=== PATIENT | male | born 1940 | race Caucasian/White ===

== ENCOUNTER 2017-02-11 16:31 | Outpatient (CLI) | payer MEDICARE ==
--- OUTSIDE RECORDS SUMMARY | 2017-02-11 16:35 | XMS | Clinical Summary ---
:1940 Author Organization [facility] Address [address] [place] [address] Phone Care Team Providers Name Role Phone , Primary Care Provider Unavailable Allergies No Known Allergies Current Medications Prescription Sig. Disp. Refills Start Date End Date Status furosemide (LASIX) 40 MG Take 40 mg by mouth Active tablet 2 (two) times daily. amiodarone (PACERONE) 100 Take 100 mg by Active MG tablet mouth daily. omeprazole (PRILOSEC) 40 Take 40 mg by mouth Active MG capsule daily. potassium chloride SA Take 10 mEq by Active (K-DUR,KLOR-CON) 10 MEQ mouth 2 (two) times tablet daily. glimepiride (AMARYL) 2 MG Take 2 mg by mouth Active tablet every morning before breakfast. atorvastatin (LIPITOR) 40 Take 40 mg by mouth Active MG tablet daily. Active Problems Not on file Social History Tobacco Use Types Packs/Day Years Used Date Never Smoker Alcohol Use Drinks/Week oz/Week Comments No Sex Assigned at Date Recorded Not on file Last Filed Vital Signs Vital Sign Reading Time Taken Blood Pressure 165/57 02/04/2015 3:40 PM CDT Pulse 61 02/04/2015 3:40 PM CDT Temperature 36.6 C (97.8 F) 02/04/2015 3:17 PM CDT Respiratory Rate 17 02/04/2015 3:40 PM CDT Oxygen Saturation 93% 02/04/2015 3:40 PM CDT Inhaled Oxygen Concentration - - Weight 90.7 kg (200 lb) 01/31/2015 3:57 PM CDT Height 177.8 cm (5' 10") 01/31/2015 3:57 PM CDT Body Mass Index 28.7 01/31/2015 3:57 PM CDT Plan of Treatment Not on file Implants Implanted Type Area [employer]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
--- NOTE | 2017-02-11 19:13 | RAD ---
ABDOMEN TWO VIEW ONE VIEW CHEST X-RAY 02/11/17 HISTORY: Abdominal pain since last night. Vomiting. Abdominal aortic aneurysm surgery. COMPARISON: Some radiographs of the chest 09/01/16. FINDINGS: There are numerous distended loops of bowel in the upper abdomen. These appear to be predominantly l arge bowel with dilatation also of a few loops of small bowel. There appears to be some interpositio n of bowel between the left hemidiaphragm and the stomach with partially compressed stomach bubble. Free air cannot be totally excluded, although is felt less likely. Moderate distention of the rectum with stool. Dense vascular calcifications. IMPRESSION: 1. Dilated loops of large and small bowel with abnormal foci of gas on the right lateral hemiab domen. This cannot be definitively described as intraluminal. Recommend CT evaluation for extralumin al gas and for distal large bowel obstruction. 2. Large volume stool in the rectal vault. 3. Clear chest. Phone call was made to the doctor's office at 5:03 p.m. for which it was closed and the answering se naveen answered and was not able to connect me. Code T POS: JOSH
== END 2017-02-11 16:32 | disposition home or self-care (01) ==
LOC: SCSRAD 16:31
PROVIDERS: ATTEND Family Medicine
DX: R10.84 Generalized abdominal pain (principal); K56.699 Other intestinal obstruction unspecified as to partial versus complete obstruction
CPT/HCPCS: 74022

== ENCOUNTER 2017-02-12 09:36 | Outpatient (CLI) | payer MEDICARE ==
[~2017-02-12 09:36] MED LIST: Iopamidol 370 76% 100 ML VIAL ONE
--- NOTE | 2017-02-12 15:43 | CT ---
ABDOMEN AND PELVIC CT SCAN WITH IV CONTRAST: HISTORY: A 76-year-old male with a history of constipation, nausea, vomiting, abdominal pain, and concern for colonic obstruction. FINDINGS: Minimal posterior pleural-based parenchymal changes, probably positional. Three-vessel coronary art ben calcific disease. Postoperative changes in the left atrial appendage. Prominent atherosclerotic changes of the aorta with focal dilatation of the lower abdominal aorta up to approximately 3.4 cm. Status post cholecystectomy. No evidence for liver metastasis. Small le ft kidney. Several right renal cysts including a cyst in the posterior lower pole of the right kidn ey with some calcifications along the wall of the cyst. These are stable from prior study of 05/13/16 . The visualized pancreas, spleen, and adrenal glands were unremarkable. No renal calculi or acute obstruction. There is a large constricting annular mass in the sigmoid colon resulting in some proximal colonic dilatation and findings of obstruction. There is some colonic diverticulosis witho ut acute diverticulitis. No evidence of adenopathy. Mild dilatation of both right and left common iliac arteries. Slight nonspecific sclerosis of both femoral heads. IMPRESSION: Large constricting annular mass involving the sigmoid colon highly suspicious for colon cancer with some resultant obstructional changes and dilatation of the proximal colon. Colonic diverticulosis w ithout acute diverticulitis. Stable renal cyst. Atherosclerosis of the aorta with several areas of focal ectasia, stable. No liver metastasis or evidence for lymphadenopathy within the abdomen or p milton. Normal-appearing appendix. Findings were discussed with Dr. Warner Grullon at 12:15 p.m. CODE CR POS: JOSH
== END 2017-02-12 09:37 | disposition home or self-care (01) ==
LOC: CT 09:36
PROVIDERS: ATTEND Radiology Diagnostic Radiology
DX: K59.00 Constipation, unspecified (principal); R10.9 Unspecified abdominal pain; R11.2 Nausea with vomiting, unspecified; K57.30 Diverticulosis of large intestine without perforation or abscess without bleeding; N28.1 Cyst of kidney, acquired; I70.0 Atherosclerosis of aorta; I77.819 Aortic ectasia, unspecified site; K63.89 Other specified diseases of intestine
CPT/HCPCS: 74177

== ENCOUNTER 2017-04-21 10:23 | Inpatient (IN) | payer MEDICARE ==
[2017-04-21 10:58] LABS: #Eosinphils 0.1 thou/uL (0.0-0.7); #Lymphocytes 0.5 thou/uL (1.20-3.40); #Monocytes 0.6 thou/uL (0.11-0.59); #Neutrophils 10.8 thou/uL (1.40-6.50); %Basophils 0.4 % (0.0-1.0); %Eosinophils 0.4 % (0.0-10.0); %Lymphocytes 4.4 % (21.0-51.0); %Monocytes 5.3 % (0.0-10.0); Hematocrit 39.4 % (42.0-52.0); Mean Platelet Volume 7.5 fL (7.4-10.4); Red Blood Cell (RBC) Count 3.88 mill/uL (4.70-6.10); White Blood Cell (WBC) Count 12.1 thou/uL (4.8-10.8)
[2017-04-21 11:21] LABS: Troponin I 0.025 ng/mL (< 0.028)
[2017-04-21 11:24] LABS: ALT (SGPT) 26 U/L (8-55); AST (SGOT) 27 U/L (5-34); Alkaline Phosphatase 181 U/L (40-150); Anion Gap 15 mmol/L (10-20); BUN (Urea Nitrogen) 23 mg/dL (8.4-25.7); Bilirubin, Total 0.8 mg/dL (0.2-1.2); CK (CPK) Less than 9 U/L (30-200); Calc. Creatinine Clearance 0 mL/min (70-130); Calcium 11.7 mg/dL (7.8-10.44); Carbon Dioxide 27 mmol/L (23-31); Chloride 92 mmol/L (98-107); Estimated GFR-MDRD 40; Globulin 5.1 g/dL (2.4-3.5); Protein, Total 8.2 g/dL (5.8-8.1)
[2017-04-21 11:30] LABS: Lactic Acid - Sepsis 3.4 mmol/L (0.5-2.2)
[2017-04-21 11:33] LABS: Digoxin 0.29 ng/mL (0.8-2.0)
[2017-04-21 11:58] LABS: PTT 32.5 SEC (22.9-36.1); Prothrombin Time 13.7 SEC (12.0-14.7)
--- NOTE | 2017-04-21 12:11 | RAD ---
SINGLE VIEW OF CHEST: Date: 04/21/17 COMPARISON: 02/27/17. HISTORY: Atrial fibrillation and shortness of breath. FINDINGS: Single view of chest shows normal sized cardiomediastinal silhouette with atherosclerotic calcificati ons in the aorta. There is no evidence of consolidation, mass, or pleural effusion. Degenerative peraza ges are seen in the spine and shoulders. IMPRESSION: 1. No evidence of acute cardiopulmonary disease. 2. Atherosclerotic disease. POS: [facility]
[2017-04-21] MEDS ORDERED: Ondansetron HCl/PF 4 MG/2 ML Vial IVP PRN (15:56)
[2017-04-21] MEDS ORDERED: Acetaminophen 325 MG TAB PO PRN (15:56)
[2017-04-21] MEDS ORDERED: HYDROcodone/Acetaminophen 5/325 mg Tablet PO PRN ×2 (15:56)
[2017-04-21] MEDS ORDERED: Ondansetron ODT 4 MG TAB SL PRN (15:56)
[2017-04-21] MEDS ORDERED: Dextrose 5% in Water 1,000 ML IV PRN ×2 (15:58→16:56)
[2017-04-21] MEDS ORDERED: Insulin Regular 300 UNITS/3 ML VIAL SC PRN ×2 (15:58→16:56)
[2017-04-21] MEDS ORDERED: Dextrose 50% Abboject 50 ML SYRINGE IVP PRN (15:58)
[2017-04-21] MEDS ORDERED: Diltiazem HCl 125 MG, Admixture Fee 1 EACH in Sodium Chloride 0.9% 100 ML IVPB SCH (16:00)
[2017-04-21] MEDS ORDERED: Dextrose 50% Abboject 50 ML SYRINGE SLOW IVP PRN (16:56)
[2017-04-21 17:34] LABS: Hematocrit 35.4 % (42.0-52.0)
[2017-04-21] MEDS ORDERED: Sodium Chloride 0.9% 1,000 ML IV SCH (17:45)
[2017-04-21 18:00] LABS: Troponin I 0.026 ng/mL (< 0.028)
--- NOTE | 2017-04-21 20:00 | HP ---
DATE OF ADMISSION: 04/21/2017 ADMITTING PHYSICIAN: Kevin Carey M.D. HISTORY OF PRESENT ILLNESS: The patient is a 76-year-old male status post recent colonic resection r esulting in inadvertently ileostomy. He has a history of recurrent atrial fibrillation. 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 He state s he was feeling fairly well prior to this. Evidently, while he was in his department editor's office, he was noted to be in atrial fibrillation with rapid ventricular response. He was sent to the emergenc y room to be admitted by me. While there, his notes he has had decreased appetite since his armand letha and has lost weight. There has been no vomiting. He simply notes he just does not feel like ea ting. No fever has been reported otherwise. No chest pain, no shortness of breath. He really did not realize he was in atrial fibrillation and r apid response otherwise. He has had a history of a chronic wound to his left upper quadrant that is still draining. Wound VAC has been removed and he sent with health care. Otherwise, no other medica l complaints noted. ALLERGIES: He has no known allergies. CURRENT MEDICATIONS: Noted in the body of the chart. PAST MEDICAL HISTORY: Significant for the above noted colonic resection with resulting ileostomy. Carmencita marina also has a history of cholecystectomy, abdominal aortic aneurysm repair, tonsillectomy, left caroti d endarterectomy, multiple ablations. He has also had a Workman procedure done on his heart for atri al fibrillation. Medical history is positive for type 2 diabetes mellitus, hypertension, hyperlipide jaylyn, most recently for recurrent weakness. SOCIAL/PERSONAL HISTORY: He is . He does not smoke nor does he drink alcohol. REVIEW OF SYSTEMS: CONSTITUTIONAL: Positive for recurrent weakness. GASTROINTESTINAL: Positive for some lower abdominal discomfort. GENITOURINARY: Otherwise negative. CARDIOVASCULAR: Positive as above. RESPIRATORY: Otherwise negative at this time. No cough or fever has been noted. PHYSICAL EXAMINATION: VITAL SIGNS: At the time of me seeing him, his pulse was 89 and regular, respirations 16, O2 sat was 97% on 2 liters, blood pressure was 119/52. GENERAL: He is alert, active, does not appear in any distress. HEENT: Normocephalic, atraumatic. Sclerae and conjunctivae clear. Throat clear. NECK: Supple, full range of motion, no masses. LUNGS: Clear to auscultation. HEART: Reveals an irregular regular rhythm without murmur, gallops or rubs. ABDOMEN: Soft. There is some slight left lower quadrant tenderness. Ileostomy is present at the [facility] lower quadrant. There is an open wound to the left upper quadrant with some purulent material dr cox. No evidence of any significant erythema is otherwise noted. EXTREMITIES: Trace edema bilaterally. NEUROLOGICAL: He is able to move all extremities well. Follow commands. LABORATORY AND X-RAY FINDINGS: Initial labs showed a white blood count 12.1, hemoglobin 12.6, hemato crit 39.4. Chemistry: Sodium 129, potassium 4.5, chloride 92, CO2 of 27, BUN 23, creatinine 1.68. Lactic acid is slightly elevated at 3.4. Initial troponin 0.025. TSH is 1.26. Digoxin level 0.29. Chest x-ray shows no evidence of any acute process. IMPRESSION: 1. This is a 76-year-old male who is status post recent colonic resection, is now on atrial fibrilla tion, rapid ventricular response, now controlled with the diltiazem drip. 2. Deconditioning. 3. Generalized weakness due to prolongation of recovery. PLAN: 1. The patient will be admitted to Telemetry. We will consult Cardiology for further recommendation s. 2. The patient has seen Dr. Gregory in the past. We will consult GI for any further recommendations regarding his GI system. 3. Continue current medications, otherwise. Further recommendations will be based on response.
--- NOTE | 2017-04-21 20:03 | PRG ---
DATE OF SERVICE: 04/21/2017 Mr. Casillas is here in the telemetry. He has apparently received some fluid, feeling somewhat bet ter. Heart rate is in the 90-100 range. I suspect the patient is volume depleted. He is also hyponatremic. We will stop Lasix and normal sa line. Increase digoxin dose in the morning. The patient also states that tamsulosin did make him ve ry lightheaded. We will stop the tamsulosin for now.
[2017-04-21] MEDS: Sodium Chloride 0.9% 1,000 ML IV SCH (21:57)
[2017-04-21] MEDS: Ubidecarenone 50 MG CAP PO SCH (21:57)
[2017-04-21] MEDS: Magnesium Oxide 400 MG TAB PO SCH (21:58)
[2017-04-21] MEDS: guaiFENesin ER 600 MG TAB PO SCH (21:58)
[2017-04-21] MEDS: Famotidine 20 MG TAB PO SCH (21:58)
[2017-04-22 00:07] LABS: Hematocrit 32.5 % (42.0-52.0)
[2017-04-22 05:20] LABS: Digoxin 0.35 ng/mL (0.8-2.0)
[2017-04-22 05:29] LABS: Anion Gap 11 mmol/L (10-20); BUN (Urea Nitrogen) 21 mg/dL (8.4-25.7); Calc. Creatinine Clearance 0 mL/min (70-130); Calcium 10.9 mg/dL (7.8-10.44); Carbon Dioxide 29 mmol/L (23-31); Chloride 96 mmol/L (98-107); Estimated GFR-MDRD 55; Iron 33 ug/dL (65-175)
[2017-04-22 05:34] LABS: #Eosinphils 0.1 thou/uL (0.0-0.7); #Lymphocytes 0.6 thou/uL (1.20-3.40); #Monocytes 0.7 thou/uL (0.11-0.59); #Neutrophils 7.7 thou/uL (1.40-6.50); %Basophils 0.1 % (0.0-1.0); %Eosinophils 0.7 % (0.0-10.0); %Lymphocytes 6.9 % (21.0-51.0); %Monocytes 7.6 % (0.0-10.0); Hematocrit 39.2 % (42.0-52.0); Mean Platelet Volume 7.3 fL (7.4-10.4); Red Blood Cell (RBC) Count 3.87 mill/uL (4.70-6.10)
[2017-04-22] MEDS: Sodium Chloride 0.9% 1,000 ML IV SCH ×2 (06:36→23:44)
[2017-04-22] MEDS ORDERED: Furosemide 40 MG TAB PO SCH (07:30)
--- NOTE | 2017-04-22 08:07 | PRG ---
DATE OF SERVICE: 04/22/2017 Mr. Casillas is doing well, he states he feels much better. He ate last night without any difficul ties or problems. PHYSICAL EXAMINATION: VITAL SIGNS: Temperature 97.7, BP 94/52, pulse 72 and regular. LABORATORY: Hemoglobin 12.5, hematocrit 39.2, sodium 132, potassium 3.8, chloride 96, CO2 29, BUN 1. 27. BNP is 322. LUNGS: Clear. HEART: Reveals no murmur. ABDOMEN: Soft. IMPRESSION: The patient is basically improved from his atrial fibrillation with rapid ventricular re sponse with simple IV fluids. I have asked Dr. Gregory to see him anyway today for further considerations regarding any trouble swal lowing. He is wishing to go home today. I told him that would be left up to the Cardiology Departme , I also informed him that I will be out of town tomorrow and Dr. Warner Grullon will be rounding for me.
[2017-04-22] MEDS ORDERED: FLU VACC TS2017-18 (>65YR) 0.5 ML SYRINGE IM ONE (09:00)
[2017-04-22] MEDS ORDERED: Tamsulosin HCl 0.4 MG CAP PO SCH (09:00)
[2017-04-22] MEDS ORDERED: Digoxin 0.125 MG TAB PO SCH (09:00)
[2017-04-22] MEDS: Potassium Chloride 10 MEQ TAB PO SCH ×2 (10:49→18:17)
[2017-04-22] MEDS: Enoxaparin Sodium 40 MG/0.4 ML SYRINGE SC SCH (10:49)
[2017-04-22] MEDS: Fish Oil 1,000 MG CAP PO SCH (10:49)
[2017-04-22] MEDS: Aspirin 81 mg Enteric Coated Tablet PO SCH (10:49)
[2017-04-22] MEDS: guaiFENesin ER 600 MG TAB PO SCH ×2 (10:50→21:10)
[2017-04-22] MEDS: Ascorbic Acid 500 mg Chewable Tablet PO SCH (10:50)
[2017-04-22] MEDS: Famotidine 20 MG TAB PO SCH ×2 (10:50→21:09)
[2017-04-22] MEDS: Zinc Sulfate 220 MG CAP PO SCH (10:59)
[2017-04-22] MEDS: Calcium/Multivitamins W-Iron 1 TAB TAB PO SCH (11:00)
[2017-04-22 12:47] LABS: Hematocrit 33.2 % (42.0-52.0)
[2017-04-22] MEDS ORDERED: ISOVUE-370 76%-LOCM 1 ML ONE (14:05)
[2017-04-22] MEDS ORDERED: Iopamidol 370 76% 50 ML VIAL FS ONE (14:05)
--- NOTE | 2017-04-22 17:06 | PRG ---
DATE OF SERVICE: 04/22/2017 SUBJECTIVE: Mr. Das feels much better today. He received intravenous fluid overnight. He is feeling much better. No chest pain. His heart rate is also down to normal. PHYSICAL EXAMINATION: VITAL SIGNS: Blood pressure 110/54, pulse 80, it is irregular. LUNGS: Clear. CARDIAC: Irregularly irregular. ASSESSMENT: 1. The patient was dehydrated and that is improved. 2. Hyponatremia, also probably related to dehydration and diuretics improving with sodium now up to 132, it was 129 on admit. 3. Renal failure is also improved. Creatinine has gone from 1.68 to 1.27. 4. Nausea is improved. 5. The patient has a BNP 322. He has chronic diastolic heart failure. 6. Iron-deficiency anemia. The patient's ferritin level is normal. PLAN: 1. Hep-Lock IV. 2. Cardizem has been increased. 3. The patient has some drainage from his wound in his abdomen and wishes to see Dr. Butler and cons ulted Dr. Butler. Hopefully, the patient could be released home tomorrow.
[2017-04-22] MEDS ORDERED: Metoclopramide HCl 10 MG/2 ML VIAL IVP SCH (17:15)
[2017-04-22 18:54] LABS: Hematocrit 34.8 % (42.0-52.0)
--- NOTE | 2017-04-22 19:44 | HP ---
HISTORY OF PRESENT ILLNESS: A 76-year-old male patient who has been admitted for dehydration, atrial fibrillation, and RVR. He has been hydrated and Dr. Saba had seen him and believes that he will b e able to go home tomorrow. The patient was suffering anorexia, but no dysphasia. Dr. Kevin Carey admitted him. Dr. Jennifer Saba saw him for his atrial fibrillation. Dr. Gregory is planning on see ing him. The patient has a left upper quadrant abdominal wound, it is draining purulent material, ch anging the dressings 3-4 times a day. I have talked to them in my office regarding ostomy bag to con trol this versus gauze dressing, they wanted to stay with a gauze dressing. [facility] de la o s been seeing him for his open wound and helping with his ileostomy care. We recently discontinued t he wound VAC from his local wound and [facility] they stated they will not see him more th an once a week since doing this. The states that she cannot care for the ileostomy herself and the patient is not able. We will ask home health to see what they can due to increase the frequency of visits with home health. The patient underwent 04/05/2016 laparoscopic cholecystectomy that I performed and then on 02/13/2017 , he had a partially obstructing sigmoid colon mass and underwent laparoscopic mobilization of spleni c flexure and left colectomy and colorectal anastomosis. Postoperatively, he developed a leak and on 02/19/2017, the patient underwent laparoscopy converted to a laparotomy with abdominal washout with 8 liters of fluid, suture closure of the right posterolateral colorectal anastomotic leak in two laye rs; placement of 2 Horace drains on left subcostal, one left gutter and pelvis, other one left subdi aphragmatic area; and FRANCO drain and a diverting ileostomy. The patient in the hospital developed drai nage from the suprapubic wound that was purulent and eventually this closed up and after the Horace drains have been advanced out and removed, developed drainage from this wound. He has had continued drainage since that time. This drainage has not seemed to be slowing down, although he remains afebr ile and the abdomen is soft, benign, and nontender without pain. As stated above, he is afebrile. ALLERGIES: None. TOBACCO: None. ALCOHOL: None. MEDICATIONS: At home, vitamin D3, glimepiride, diltiazem, aspirin, famotidine, Lasix, Flomax, magnes ium. PHYSICAL EXAMINATION: VITAL SIGNS: Temperature 98.1, 69, 20, 103/55. LUNGS: Clear to auscultation. CARDIAC: Irregularly irregular. Good rate control. ABDOMEN: Soft, nontender. Dressing left upper quadrant wound dry, recently changed. Suprapubic mid line wound dressing from wound care, small granulating wound, healing ileostomy right lower quadrant. LABORATORY: White count 9, hemoglobin 12. BUN 20, creatinine 1.27. ASSESSMENT AND PLAN: 1. 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 We will plan CT s can of abdomen and pelvis. P.o. and IV contrast tonight to evaluate the abdomen and see why this is chronically leaking. We will try to obtain this tonight and if there is any intra-abdominal fluid co llection, could consider CT guided drainage during this hospitalization. We will await this study. 2. Chronic draining wound, left upper quadrant. He does not need to be on antibiotics. They prefer change of dressings, not have a stoma for this as they are changing it 2 to 4 times a day. 3. feel still that she is not capable of ileostomy care. We will ask home health to increase t he frequency of home health visits to help him deal with this.
[2017-04-22] MEDS: Ubidecarenone 50 MG CAP PO SCH (21:09)
[2017-04-22] MEDS: Mirtazapine 15 MG TAB PO SCH (21:10)
[2017-04-22] MEDS: Magnesium Oxide 400 MG TAB PO SCH (21:10)
--- NOTE | 2017-04-22 23:00 | CT ---
CT OF THE ABDOMEN AND PELVIS WITH CONTRAST 04/22/17 COMPARISON: 02/19/17. HISTORY: Abdominal pain with chronic draining left upper quadrant wound. TECHNIQUE: Multiple contiguous axial images were obtained in a CT of the abdomen and pelvis with contrast. PO co ntrast was administered. Coronal reformats were performed. FINDINGS: There are stable hypodensities in the right kidney which likely represent cysts. There are calcificat ions associated with a more posterior hypodensity in the right kidney. The patient is status post cho lecystectomy. The liver, left kidney, adrenal glands, spleen, and pancreas are unremarkable. There ar e scattered diverticula in the colon. The small bowel is unremarkable. There is an ostomy in the righ t lower quadrant of the abdomen. There is air beneath the umbilicus. There is also a wound in the lef t abdominal wall. There appears to be a small amount of enteric contrast within this wound. There is a localized collection of free air in the left upper quadrant of the abdomen measuring approximately 8.1 cm in craniocaudal dimension which appears to connect to this fluid collection. Surrounding this collection are scattered areas of fluid and significant stranding changes in the left upper quadrant of the abdomen. The colon is not yet filled with enteric contrast and as it appears that enteric cont rast is seen in the wound, this would may connect with underlying small bowel loops as well. There is mild ectasia of the aorta which contains atherosclerotic calcifications and is tortuous in a ppearance. No abdominal or pelvic lymphadenopathy are seen. Degenerative changes are seen in the spine. There is a small left pleural effusion. IMPRESSION: 1. There is a wound in the left abdominal wall which appears to contain a small amount of enteri c contrast. 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 There is a complex ai r/fluid collection in the left upper quadrant of the abdomen which appears to drain into this wound. 2. Severe diverticulosis. 3. Right renal cyst. 4. Small left pleural effusion. POS: C
[2017-04-22 23:56] LABS: Hematocrit 32.9 % (42.0-52.0)
[2017-04-23] MEDS: Mirtazapine 15 MG TAB PO SCH (01:52)
[2017-04-23] MEDS: Famotidine 20 MG TAB PO SCH ×3 (01:52→20:20)
[2017-04-23] MEDS: guaiFENesin ER 600 MG TAB PO SCH ×3 (01:52→20:20)
[2017-04-23] MEDS: Magnesium Oxide 400 MG TAB PO SCH ×2 (01:52→20:14)
[2017-04-23] MEDS: Ubidecarenone 50 MG CAP PO SCH ×2 (01:53→20:20)
[2017-04-23 05:55] LABS: Hematocrit 33.4 % (42.0-52.0)
--- NOTE | 2017-04-23 06:49 | CON ---
DATE OF CONSULTATION: 04/22/2017 REASON FOR CONSULTATION: Dysphagia/anorexia. HISTORY OF PRESENT ILLNESS: Mr. Casillas is a 76-year-old, known to me from previous evaluations r egarding abdominal pain and obstipation. He has had a chronic stricture in the sigmoid colon related to diverticulosis and basically had been refused surgery from a General Surgery standpoint as he was felt to be high risk and was not having active bleeding or infections and was not having obstruction . Ultimately, however, recently, the patient presented with obstruction. There was an attempt by Dr Cassidy Eldridge to perform a sigmoidoscopy during that admission; he saw on my absence on 02/13, it showed a s tricture 40-50 cm. Ultimately, the patient underwent resection. He had an anastomotic leak wi th peritonitis and required surgery for that. Ultimately, he went to correction for a few weeks and went home. The patient states he has really never got his appetite back. He states that when h e chews food, he does not have appetite to swallow, but he has no problems swallowing bread, ice crea m, milk or juices. He has no dysphagia or pain with swallowing. He has no epigastric pain. PAST MEDICAL AND SURGICAL HISTORY: Colon resection with ileostomy after an anastomotic leak, cholecy stectomy, abdominal aortic aneurysm repair, tonsillectomy, carotid endarterectomy, multiple cardiac a blations, Watchman procedure for AFib, type 2 diabetes, hypertension and hyperlipidemia. MEDICATIONS: Flomax, Klor-Con, magnesium, glimepiride, Lasix, Pepcid, diltiazem, digoxin, Calciferol and aspirin. CURRENT MEDICATIONS: Tylenol; vitamin C; Ecotrin; vitamin D; CoQ10; D5W p.r.n. as directed; digoxin 0.125 mg p.o. Wednesday, Wednesday and Wednesday; diltiazem; Lovenox; Pepcid; glucagon; insulin; mag oxide; potassium chloride and zinc p.r.n. 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 He does note he is still bit depressed since the time his daughter 2 years ago and he has been a pretty long illness over the past couple of months and has not really enjoyed the fall as he typically does. PHYSICAL EXAMINATION: VITAL SIGNS: Temperature is 98. He is afebrile, pulse 69 and blood pressure 103/55. LUNGS: Clear. HEART: Regular rate and rhythm without clicks or murmurs. ABDOMEN: Soft and nontender. There is no rebound. There is no guarding. There is a midline incisi on, it is still healing. LABORATORY DATA: White count 9, hemoglobin 12.5, 10.9, and then 11.1, MCV is 102 and platelet count 253. INR is 1. Comprehensive metabolic profile is normal except for calcium of 10, iron 33, TIBC 19 6, ferritin 322, AST and ALT are 27 and 26 and alkaline phosphatase is 181. ASSESSMENT: I do not know if the patient really has dysphagia. It seems like he has got some anorex ia, he has lost quite a bit of weight since the surgery, some of this may be related to the surgical complications, infection, some of this may be related to depression and poor p.o. intake. He has no thrush or really oropharyngeal issues. Dig toxicity or other medication toxicity could be a concern and also maybe he has been going in and out of atrial fibrillation at home and having a rapid ventric ular response there, that has made him feel weak and not hungry. RECOMMENDATIONS: I would strongly recommend we add supplements to this man's regimen and diet with E nsure Plus. Dr. Butler informed me that he is going to check a CAT scan to make sure he does not hav e something else going on in terms of infection with his surgical site. At this time, I see no role for endoscopy and it may be reasonable to consider antidepressant such as Remeron that may help with appetite as well. We will continue to follow.
[2017-04-23] MEDS ORDERED: Sodium Chloride 0.9% 1,000 ML IV SCH ×2 (10:15→15:45)
[2017-04-23] MEDS: Digoxin 0.125 MG TAB PO SCH (10:19)
[2017-04-23] MEDS: Potassium Chloride 10 MEQ TAB PO SCH ×2 (10:20→16:49)
[2017-04-23] MEDS: Ascorbic Acid 500 mg Chewable Tablet PO SCH (10:28)
[2017-04-23] MEDS: Aspirin 81 mg Enteric Coated Tablet PO SCH (10:29)
[2017-04-23] MEDS: Calcium/Multivitamins W-Iron 1 TAB TAB PO SCH (10:29)
[2017-04-23] MEDS: Enoxaparin Sodium 40 MG/0.4 ML SYRINGE SC SCH (10:29)
[2017-04-23] MEDS: Fish Oil 1,000 MG CAP PO SCH (10:30)
[2017-04-23] MEDS: Zinc Sulfate 220 MG CAP PO SCH (10:30)
--- NOTE | 2017-04-23 10:53 | RAD ---
SINGLE CONTRAST GASTROGRAFIN ENEMA: INDICATION: History of colon leak. COMPARISON: CT of the abdomen and pelvis dated 04/22/17. TECHNIQUE: Half-strength diluted Gastrografin contrast was administered in a retrograde fashion through a rectal tube. Real-time fluoroscopic examination and fluoroscopic spot images were obtained. Total fluoros copic time was 3.4 minutes. Total exposure was 119.78 mGy. FINDINGS: There is active extravasation of Gastrografin contrast from the left aspect of the splenic flexure in to the known large fluid and gas collection in the left upper quadrant of the abdomen consistent with a colonic perforation. This is accentuated on the postvoid upright images. IMPRESSION: Colonic wall perforation within the left aspect of the splenic flexure draining into a fluid collecti on within the left upper quadrant of the abdomen. Finding discussed with Dr. Butler at the time of t he exam. POS: [facility]
[2017-04-23 11:55] LABS: Hematocrit 34.4 % (42.0-52.0)
[2017-04-23] MEDS ORDERED: Sodium Bicarbonate 2.4 MEQ/5 ML ONE (13:04)
[2017-04-23] MEDS ORDERED: Midazolam HCl 2 mg/2 ml Vial ONE (13:05)
[2017-04-23] MEDS ORDERED: Fentanyl 100 MCG/2 ML VIAL ONE (13:05)
--- NOTE | 2017-04-23 14:18 | PRG ---
DATE OF SERVICE: 04/23/2017 HISTORY OF PRESENT ILLNESS: Mr. Casillas had a CT scan of abdomen and pelvis last night. He has a collection intraabdominal beneath the abdominal wall, left upper quadrant adjacent to the colon and small bowel. 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 It could be from the colon. He has had purulent drainage from old drain site left uppe r quadrant since his laparoscopic colon resection and he suffered a colorectal anastomotic leak requi ring drain and ileostomy diversion. He has had persistent drainage out of his left upper quadrant wo und. A CAT scan was obtained to further evaluate that although his white blood cell count is normal. He is afebrile and tolerating his diet. He was admitted this hospitalization because of dehydratio n resulting in atrial fibrillation with rapid ventricular response which has been controlled after hy dration. He has been seen by Cardiology. His dehydration is probably related to his ileostomy statu s. Hope would be to reverse his ileostomy in the future to prevent such episodes. 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 This is diverted but has a significant collection. The patient's abdomen is soft and essentially nontender. I had a discussion with the patient and wif e and explained the situation. I explained that I would recommend CT guided percutaneous drainage to help provide better drainage and resolution of this fistula without addressing it operatively which would make reverse of ileostomy much less of an operation and less risky. They are agreeable. I hav e asked Radiology to perform a CT guided drainage of the left upper quadrant intraabdominal fluid col lection from the colocutaneous fistula and hopefully this will help resolve the chronic drainage from his left lateral subcostal wound. The patient and his are agreeable. The patient's states that she just cannot physically change his ileostomy bag. [facility] had stopped making such frequent visits to the home after we discontinue the wound VAC for the lower wound which is healing. The reports a retained sponge that was eventually removed, but pr esent for about 8-10 days. This occurred as an outpatient, unrelated to hospitalization. Overall, t he lower abdominal wound is doing well and she should only have to change the dressings every 2-3 day s. He will have a drain that will need to be irrigated 2-3 times a day and she will need to be instr ucted on how to do this. The patient's stated if she has to would consider employing a home aleksnadra se that she would pay for to help her with the ostomy changes. I will ask director of casework services to discuss wit h her services available. I expect the patient to be hospitalized for another 2 to 3 days after this procedure and hopefully will go home over the weekend or early next week.
--- NOTE | 2017-04-23 15:42 | CT ---
CT GUIDED LEFT UPPER QUADRANT PERICOLONIC FLUID COLLECTION AND PERCUTANEOUS DRAINAGE: Date: 04/23/17 INDICATION: Contained perforation from the splenic flexure of the colon with accumulated fluid and gas in the lef t upper quadrant, underlying the left hemidiaphragm, and overlying the spleen seen on recent CT dated 04/22/17. This was also demonstrated on Gastrografin enema performed 04/23/17. TECHNIQUE: Informed consent was obtained. Preprocedural CT images were obtained for guidance purposes only. Site overlying the left upper quadrant of the abdomen was marked. Site was prepped and draped in the usua l sterile fashion. Patient underwent IV analgesia with 50 mcg IV Fentanyl. The overlying skin and sub cutaneous tissues and muscle were anesthetized utilizing 1% lidocaine. Under CT for fluoroscopic letty dance, a 5 Sammarinese Noovo catheter was guided down into the collection. .035 Amplatz wire was fed into t he collection. Following this, an 8 Sammarinese dilator was introduced through the abdominal wall. Then, a n 8 S[place] All-Purpose drain was guided down into the fluid collection via the guidewire. The guidewi re was removed. There was removal of 5 mL of pus for laboratory evaluation. There was minimal return of fluid through the catheter after this 5 mL of purulent fluid removal. Mainly gas was removed from the catheter after multiple aspiration attempts. A post drainage CT was performed to confirm position ing of the catheter within the collection. This demonstrated the catheter to be within the fluid pablito ection in question. Contrast in the patient's Gastrografin enema is present within the collection, as well as extending out of the patient's left upper quadrant cutaneous fistula. FINDINGS: There are small bilateral pleural effusions. There is bibasilar atelectasis. There is a contained per foration extending off from the splenic flexure. There are bilateral nephrolithiasis. There are posts urgical changes of prior cholecystectomy. IMPRESSION: Successful percutaneous drainage catheter placement in the contained perforation seen within the left upper quadrant of the abdomen. Findings discussed with Dr. Butler at 1400 hours on 04/23/17. CODE CR. POS: [facility]
--- NOTE | 2017-04-23 16:06 | PRG ---
DATE OF SERVICE: 04/23/2017 SUBJECTIVE: Mr. Casillas is doing okay. He came back from the CT guided drainage placement. He i s not having chest pain or pressure. Overall he is feeling relatively well. PHYSICAL EXAMINATION: VITAL SIGNS: His blood pressure is 134/58 and pulse 98 irregular. LUNGS: Clear. CARDIAC: Irregularly irregular. ABDOMEN: Soft and nontender. EXTREMITIES: There is no edema. ASSESSMENT: 1. Dehydration, resolved. 2. Hyponatremia, improved. Sodium was 132 yesterday. 3. Fluid status post drainage as outlined above. 4. Atrial fibrillation, rate is now controlled. PLAN: 1. Continue diltiazem 180 mg a day. 2. No diuretics for now. He was given some intravenous fluid. 3. Okay to me move off telemetry. He is stable from a cardiac standpoint. When he goes home, consi ryne furosemide 20 mg every other day.
[2017-04-23] MEDS ORDERED: MD-Gastroview 120 ML BOT ONE (17:35)
[2017-04-23 19:26] LABS: Hematocrit 33.3 % (42.0-52.0)
[2017-04-23] MEDS: Acetaminophen 325 MG TAB PO PRN (20:15)
--- NOTE | 2017-04-23 23:58 | PRG ---
DATE OF SERVICE: 04/23/2017 SUBJECTIVE: Mr. Casillas does not feel like he already had a drain placed in today to left lower q uadrant fluid collection. It appears to be an abscess by description from Radiology. The patient do es not have much of an appetite. He complains of getting his blood checked every 6 hours, wonders if that has to continue. OBJECTIVE: VITAL SIGNS: Temperature is 99, pulse 79, blood pressure 114/58. LUNGS: Clear. ABDOMEN: Nontender. He has got a drain on the left upper quadrant. EXTREMITIES: No clubbing, cyanosis, or edema. LABORATORY DATA: Hemoglobin has been stable between 10 and 11 for 2 days now. White count was 9 yes terday, hemoglobin was 12 yesterday, platelet count was 252 yesterday. ASSESSMENT: Anorexia and weight loss, likely related to ongoing abdominal abscess, probably secondar y complaints of depression. He has been hospitalized pretty continuously since February. RECOMMENDATIONS: We will defer treatment of abscess to General Surgery. At this time, we would go a head and stop the serial H&H's that have been stable. There are no signs of bleeding and I am going to stop the Remeron as it seems a pretty good reason for his weight loss and anorexia. We will encou rage him to drink Ensure or Boost 3 times a day. We will follow from a distance.
--- NOTE | 2017-04-24 | PRG ---
DATE OF SERVICE: 04/23/2017 HISTORY OF PRESENT ILLNESS: The patient states he is fatigued, cold with IV fluids running through his arm and reports some leaking from the colostomy site , is eager to get a CT-guided drainage of pocket of fluid in abdomen gone. He reports depression and decreased appetite. No longer having chest pain, flutters or palpitations on increased dose of diltiazem and compliant with digoxin while in hospital. He does complain of dry mouth and he has been required to take sips of water behind breads and meats. No further plans from GI reported for intervention during this hospitalization. PHYSICAL EXAMINATION: VITAL SIGNS: This a.m., temperature of 98.0, heart rate of 111, respiratory rate of 18, oxygen saturation 92% on room air, blood pressure of 108/57, heart rate ranging from 89-111 last heart rate at 1600 hours, today is 79. GENERAL: The patient is alert, oriented, no acute distress. HEENT: Normocephalic, atraumatic. Extraocular movements are intact. Oral mucosa is dry. NECK: Supple, nontender. HEART: Regular rate and rhythm at time of exam. No murmurs auscultated. LUNGS: Clear to auscultation bilaterally. ABDOMEN: Colostomy in place. Small leakage through right flank. Abdomen is mildly tender without rebound or guarding, currently. Additional fistula site to left side. EXTREMITIES: Lower extremities without cyanosis or edema. NEUROLOGIC: The patient is alert and oriented x3. Mood is depressed. Thought process is normal. Speech is normal. LABORATORY DATA: Review of laboratory work, hemoglobin stable on last check 11.2. ASSESSMENT AND PLAN: 1. Atrial fibrillation with rapid ventricular response, controlled on increased medication. 2. Anemia with iron deficiency. Hemoglobin and hematocrit is stable, Gastroenterology, no acute intervention currently, recommending increase fluid behind dry mouth as well as Remeron for depressed mood and increased appetite stimulation. 3. The left upper quadrant pericolonic retroperitoneal abscess, drained by CT- guided process, removal of 5 mL of purulent material sent to lab for evaluation with additional 5 mL of purulent material are wasted, drain in place. Dr. Butler is following postsurgical complications of colectomy following diverticular disease. Once he is stable from a surgical standpoint, Cardiology has stated he will likely be stable from a heart standpoint for discharge home.. We will follow along with Surgery while inpatient. ANJEL
[2017-04-24] MEDS: Acetaminophen 325 MG TAB PO PRN ×3 (05:03→20:07)
[2017-04-24 05:26] LABS: #Eosinphils 0.1 thou/uL (0.0-0.7); #Lymphocytes 0.6 thou/uL (1.20-3.40); #Monocytes 0.7 thou/uL (0.11-0.59); #Neutrophils 6.9 thou/uL (1.40-6.50); %Basophils 0.4 % (0.0-1.0); %Eosinophils 1.1 % (0.0-10.0); %Lymphocytes 7.2 % (21.0-51.0); %Monocytes 7.9 % (0.0-10.0); Hematocrit 34.6 % (42.0-52.0); Red Blood Cell (RBC) Count 3.41 mill/uL (4.70-6.10); White Blood Cell (WBC) Count 8.3 thou/uL (4.8-10.8)
[2017-04-24 06:04] LABS: Anion Gap 11 mmol/L (10-20); BUN (Urea Nitrogen) 13 mg/dL (8.4-25.7); Calc. Creatinine Clearance 55 mL/min (70-130); Calcium 11.4 mg/dL (7.8-10.44); Carbon Dioxide 27 mmol/L (23-31); Chloride 101 mmol/L (98-107); Estimated GFR-MDRD 65
[2017-04-24] MEDS: Potassium Chloride 10 MEQ TAB PO SCH ×2 (09:24→17:12)
[2017-04-24] MEDS: Aspirin 81 mg Enteric Coated Tablet PO SCH (09:24)
[2017-04-24] MEDS: Ascorbic Acid 500 mg Chewable Tablet PO SCH (09:26)
[2017-04-24] MEDS: Famotidine 20 MG TAB PO SCH ×2 (09:28→20:11)
[2017-04-24] MEDS: Calcium/Multivitamins W-Iron 1 TAB TAB PO SCH (09:28)
[2017-04-24] MEDS: Enoxaparin Sodium 40 MG/0.4 ML SYRINGE SC SCH (09:28)
[2017-04-24] MEDS: Fish Oil 1,000 MG CAP PO SCH (09:29)
[2017-04-24] MEDS: guaiFENesin ER 600 MG TAB PO SCH ×2 (09:29→20:11)
[2017-04-24] MEDS: Zinc Sulfate 220 MG CAP PO SCH (09:29)
--- NOTE | 2017-04-24 10:35 | PRG ---
DATE OF SERVICE: 04/24/2017 SUBJECTIVE: The patient is sitting up in bed comfortably. Reports mild tenderness surrounding the s urgical incision. Denies redness or drainage. PHYSICAL EXAMINATION: VITAL SIGNS: Temperature 98.3, pulse 95, respirations 18, oxygen saturation 95% on room air, blood p ressure 111/73. GENERAL: Alert and oriented x3 with no acute distress. HEENT: Normocephalic. Pupils equally round and reactive to light. Extraocular muscles intact. Stan st mucous membranes. HEART: Regular rate and rhythm, no murmurs. LUNGS: Clear to auscultation bilaterally, no wheezes. ABDOMEN: Colostomy in place, drain also in place. EXTREMITIES: No cyanosis, clubbing or edema. LABORATORY DATA: White blood cell count 8.3, hemoglobin 11.2, hematocrit 34.6, MCV 101.0. Sodium 135, potassium 4.1, chloride 101, carbon dioxide 27, BUN 13, creatinine 1.09, glucose 105, ca lcium 11.4. Abdominal aspirate culture reveals predominant E. coli on preliminary culture. There is also moderat e gram positive cocci in pairs and chains and clusters. ASSESSMENT AND PLAN: 1. Atrial fibrillation with rapid heart rate is currently normal with controller medication. 2. Retroperitoneal abscess, status post CT guided drainage. Plan per Dr. Butler. 3. Culture positive for multiple organisms. We will discuss with Dr. Butler regarding antibiotic co verage. 4. Anemia with iron deficiency. Lab stable, actually improved from yesterday. DISPOSITION: The is concerned about home care with the surgical wounds and drain. She would li ke to discuss further with case management regarding home health coming more often.
--- NOTE | 2017-04-24 14:59 | PRG ---
DATE OF SERVICE: 04/24/2017 SUBJECTIVE: Mr. Casillas was up all last night. He is doing pretty well. Little bit of discomfor t at the site of his drain in his left upper quadrant. He did drink some oral supplements and had so me fruit this morning. He says appetite is little bit better. OBJECTIVE: VITAL SIGNS: He has been afebrile since admission. Temperature is 98, pulse 95 and blood pressure 1 13/73. ABDOMEN: Soft and nontender. GENERAL: He is alert and oriented to person, place and time. LABORATORY STUDIES: White count 8.3, hemoglobin 11.2 and platelet count 272. Sodium 135, potassium 4.1, BUN and creatinine 30 and 1.03, calcium 11.4. Iron 33, TIBC 196, ferritin 322. Micro culture o f abdominal aspirate positive for E. coli. ASSESSMENT AND PLAN: 1. Atrial fibrillation, rapid ventricular response increased. 2. Dehydration on admission, probably related to poor p.o. intake. Diuretics have been held. He is eating a little bit better. 3. Anorexia. Suspect this is probably more related to some intra-abdominal fluid collection. He se ems to be improving since drainage. 4. Anemia of chronic disease, no bleeding. 5. Left upper quadrant fluid collection drained. Talked with Dr. Butler, he felt this was more of a n enterocutaneous fistula probably initially to the midline incision, but since that closed, it redir ected to the previous FRANCO site. Purulent material was sent and Escherichia coli were positive. Prese ntly without fever or leukocytosis. We will defer to Dr. Butler whether or not this is going to be treated. With the significant weight loss after surgery, it may be that he is just addressing inflam matory response and may benefit from therapy. He has been placed on antibiotics and probiotic to pre vent C. diff would be reasonable. 6. I did stop his Remeron after drainage, it seems his appetite improved. We can always consider re starting this. I would recommend him to eat supplements, try to eat vigorously and to get up and sta rt ambulating. I talked with Dr. Canseco, he is running for his primary physician today and going to [facility] physical therapy.
[2017-04-24] MEDS ORDERED: Ondansetron HCl/PF 4 MG/2 ML Vial SLOW IVP PRN (15:55)
--- NOTE | 2017-04-24 18:06 | PRG ---
DATE OF SERVICE: 04/24/2017 SUBJECTIVE: Jose Casillas is doing well today. OBJECTIVE: VITAL SIGNS: He is afebrile at 98.5 degrees, heart rate 70, respiratory rate 18, 104/58. LUNGS: Clear to auscultation. CARDIAC: Regular rate and rhythm without murmur or gallop. ABDOMEN: Soft. He does not have good appetite and is eating one-third to half of his meal most. CT guided drainage of the intra-abdominal collection yesterday. Cultures revealed E. coli mixed ente carl isa. 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 The patient has not b een out of bed since being in the hospital. He needs to be at home. He was in the bed and ambulatin g, and we have consulted therapy to see him, but they have not worked with him out of bed. The patie nt needs to be out of bed three times a day for all meals and up in a chair at night. He should be a mbulating. Yesterday on telemetry, Wednesday, I asked case managers to work with him about his home heal th apparently nothing happened yesterday, and he was transferred to surgery floor in the evening to [facility] for the evening family preservation caseworker on the surgery to do anything about his transfer. is not comfor table taking care of his ileostomy. We will make arrangements for outpatient care and anticipate dis charge home early in the week, Wednesday or Wednesday.
--- NOTE | 2017-04-24 19:58 | CON ---
DATE OF CONSULTATION: 04/24/2017 HISTORY OF PRESENT ILLNESS: Jose Casillas is a 76-year-old gentleman who apparently was admitted to the hospital with chest pain, presumed pneumonia and pleural effusion. I was asked to consult the patient. His states that he had dialysis yesterday, did well. Then, he had some leg pain and was given some hydrocodone and apparently became encephalopathic, apparentl y had fever, subsequently brought into the hospital via ambulance. The patient did not recollect the events of what happened. His x-ray showed left-sided chronic perfusion, CAT scan confirmed the above findings. Cardiology was consulted for left-sided pleural effusion. He was sent to Day Stay for outpatient thoracentesis. T he fluid has been present for over 6 months post-bypass. PAST MEDICAL HISTORY: Pertinent for, 1. Diabetes. 2. Atrial fibrillation. 3. Peripheral vascular disease. 4. Renal failure. 5. Gastric ulcer disease. 6. Osteoarthritis. 7. Gout. 8. Ejection fraction 45%, aortic stenosis, moderate. PAST SURGICAL HISTORY: Extensive bypass, right leg access, appendicitis, gallbladder, pacemaker, car otid, knee surgery. ALLERGIES: None. TOBACCO: None. REVIEW OF SYSTEMS: Otherwise unobtainable. Still encephalopathic and arousable. PHYSICAL EXAMINATION: VITAL SIGNS: Temperature is 98, sats 95% on 2 liters, blood pressure 130/63, pulse 77. CHEST: Decreased breath sounds, left one-third, right lung unremarkable. CARDIAC: Normal S1, S2. No gallops. ABDOMEN: Soft. No masses. LABORATORY DATA: His lab data yesterday showed his white count 11.4, hemoglobin and hematocrit are 1 2 and 37 and platelet count is 164. Baseline creatinine 3.6, BUN 24, INR 1.5. Elevated AST 178, BNP is 982. IMPRESSION: 1. Chronic left pleural effusion. Thoracentesis unsuccessful. 2. Renal failure. 3. Severe deconditioning. 4. Febrile illness. 5. Repeat x-ray post-dialysis to see if has any layering. If he has significant layering, consider thoracentesis at that time. Will follow.
[2017-04-24] MEDS: Amoxicillin/Potassium Clav 500 MG TAB PO SCH (20:07)
[2017-04-24] MEDS: Magnesium Oxide 400 MG TAB PO SCH (20:08)
--- NOTE | 2017-04-24 20:11 | PRG ---
DATE OF SERVICE: 04/24/2017 SUBJECTIVE: Mr. Casillas is doing well today. OBJECTIVE: VITAL SIGNS: 98.5 degrees, 70, 104/58. LUNGS: Clear to auscultation. CARDIAC: Regular rate and rhythm without murmur or gallop. ABDOMEN: Soft, nontender. The drain placed by CAT scan is not draining much at all. EXTREMITIES: The fistula wound in his left upper quadrant continues to drain, although has not been changed since last night. Drainage seems to have decreased. LABORATORY: White count 8, hemoglobin 11.2. Sodium 135. Renal function normal. ASSESSMENT AND PLAN: 1. Colocutaneous fistula. Would add Augmentin for a short 7-day course, although I am not sure that this will help. He remains afebrile with normal white count. Would hope his colocutaneous fistula would heal with time as the fecal stream is diverted with his ileostomy. 2. Deconditioning. The patient has not been out of bed since he has been in the hospital. The baljeet ent needs to be out of bed four times a day, be up in a chair for meals, he needs to ambulate. We wi ll ask that that be initiated. Discharge planning for early next week with home health visits to [facility] with drain ileostomy. Add Augmentin.
[2017-04-24] MEDS: Ubidecarenone 50 MG CAP PO SCH (20:12)
[2017-04-25] MEDS: Acetaminophen 325 MG TAB PO PRN ×2 (06:27→17:31)
[2017-04-25] MEDS: Potassium Chloride 10 MEQ TAB PO SCH ×2 (09:04→17:31)
[2017-04-25] MEDS: Aspirin 81 mg Enteric Coated Tablet PO SCH (09:04)
[2017-04-25] MEDS: Amoxicillin/Potassium Clav 500 MG TAB PO SCH ×2 (09:04→20:15)
[2017-04-25] MEDS: Calcium/Multivitamins W-Iron 1 TAB TAB PO SCH (10:03)
[2017-04-25] MEDS: Ascorbic Acid 500 mg Chewable Tablet PO SCH (10:03)
[2017-04-25] MEDS: Famotidine 20 MG TAB PO SCH ×2 (10:03→20:25)
[2017-04-25] MEDS: Enoxaparin Sodium 40 MG/0.4 ML SYRINGE SC SCH (10:03)
[2017-04-25] MEDS: Fish Oil 1,000 MG CAP PO SCH (10:04)
[2017-04-25] MEDS: Zinc Sulfate 220 MG CAP PO SCH (10:04)
[2017-04-25] MEDS: guaiFENesin ER 600 MG TAB PO SCH ×2 (10:04→20:25)
--- NOTE | 2017-04-25 13:40 | PRG ---
DATE OF SERVICE: 04/25/2017 SUBJECTIVE: The patient is sitting up in chair comfortably. He reports mild pain around the surgica l incision. Denies redness or drainage. OBJECTIVE: VITAL SIGNS: Temperature 97.7, pulse 91, respirations 16, oxygen saturation 95% on room air, and blo od pressure 124/80. GENERAL: Alert and oriented x3, in no acute distress. HEENT: Normocephalic. Pupils are equally round, reactive to light. Extraocular muscles intact. Mo ist mucous membranes. HEART: Regular rate and rhythm, no murmurs. LUNGS: Clear to auscultation bilaterally, no wheezes. ABDOMEN: Mildly tender diffusely. EXTREMITIES: No cyanosis, clubbing, or edema. LABORATORY DATA: No new labs. ASSESSMENT AND PLAN: 1. Atrial fibrillation with rapid ventricular response, currently controlled with medication. 2. Retroperitoneal abscess, status post CT guided drainage. The patient is on antibiotics for a pos itive culture. Culture is pansensitive. 3. Iron deficiency anemia, labs stable. DISPOSITION: The patient working with case management to increase visits with home health. I do rec ommend to this to help with the wound care.
--- NOTE | 2017-04-25 14:10 | PRG ---
DATE OF SERVICE: 04/25/2017 SUBJECTIVE: Mr. Casillas has been getting up with physical therapy now and walking and sitting in his chair. He denies any pain or nausea. He states his appetite is a little bit better. OBJECTIVE: VITAL SIGNS: Temperature is 98, pulse 74, blood pressure 125/75. LUNGS: Clear. HEART: Regular rate and rhythm without clicks or murmurs. ABDOMEN: There is a dressing in the left upper quadrant. There is an ostomy in the right lower quad rant. Both looked fine. The family and nurses note that he is having some drainage around the skin, drain is flushed, it tends to come out at the drain connection to the tubing that goes to his bag. LABORATORY STUDIES: None today. CULTURES: E. coli grew out of the fluid that was removed from the abdomen when the drain was placed. He has been started on Augmentin. ASSESSMENT: 1. Colocutaneous fistula, seemingly previous one of the drain sites from one of his surgeries. It i s felt this is colocutaneous fistula, although Escherichia coli did grew out of it. This could be ex pected from a fistula to the bowel; however, radiologist noted the fluid was purulent and he has been started on some Augmentin, which I think is reasonable. 2. Nurse notes he is refusing most of his other medications, which are vitamins. RECOMMENDATIONS: 1. Stay on the Lovenox, Cardizem, Lanoxin and Pepcid. We will start him on a probiotic as he is on some antibiotics now. 2. Plans are pending for discharge to [facility] home health as does not feel that she can take care of the drain and ostomy.
--- NOTE | 2017-04-25 18:41 | PRG ---
DATE OF SERVICE: 04/25/2017 SUBJECTIVE: Jose Casillas is doing well today. He is up in a chair. He is ambulating with a wa lker. He looks much better. He is feeling better. He is tolerating his diet. His abdominal dressi ng in left upper quadrant sinus tract was changed once in 24 hours and had soilage but not as much as previously. The CT-guided drain is not draining at all despite irrigation twice a day with saline. He has been started on Augmentin p.o. for 7 days. OBJECTIVE: VITAL SIGNS: 97.7 degrees, 91, 124/80. Overall, the patient is doing well. LUNGS: Clear to auscultation. CARDIAC: Regular rate and rhythm without murmur or gallop. ABDOMEN: Soft, nontender. Patient has a colocutaneous fistula, but has a fecal diversion through hi s ileostomy and this should heal nonoperatively. Once this heals, he can have his ileostomy reversed in the future. His needs help at home with managing his lower open wound which should be shaw ed every 2-3 days after washing with soap and water. The patient's and patient need help with i leostomy care. We will plan to discuss with the radiologist and check the CT-guided drain placement prior to discharge. Anticipate discharge home in the next 24-48 hours for [facility] and follow up in my office in 2-3 weeks.
[2017-04-25] MEDS: Magnesium Oxide 400 MG TAB PO SCH (20:15)
[2017-04-25] MEDS: Ubidecarenone 50 MG CAP PO SCH (20:25)
--- NOTE | 2017-04-26 07:53 | PRG ---
DATE OF SERVICE: 04/26/2017 SUBJECTIVE: Mr. Casillas is doing well today. He states his appetite is better. PHYSICAL EXAMINATION: VITAL SIGNS: He is afebrile at 98.4, blood pressure 127/81, he is in atrial fibrillation, pulse [address] regular. LUNGS: Clear. HEART: Reveals no murmur. ABDOMEN: He has undergone percutaneous drainage of small abscess through the weekend. IMPRESSION: 1. Atrial fibrillation with rapid ventricular response, now controlled. 2. Intra-abdominal abscess drained now on antibiotics. PLAN: We are waiting further set up of home health care for more extensive home health care. Once t his was accomplished, he may go home.
[2017-04-26] MEDS: Potassium Chloride 10 MEQ TAB PO SCH ×2 (09:00→18:59)
[2017-04-26] MEDS: Digoxin 0.125 MG TAB PO SCH (09:01)
[2017-04-26] MEDS: Aspirin 81 mg Enteric Coated Tablet PO SCH (09:03)
[2017-04-26] MEDS: Ascorbic Acid 500 mg Chewable Tablet PO SCH (09:04)
[2017-04-26] MEDS: Calcium/Multivitamins W-Iron 1 TAB TAB PO SCH (09:05)
[2017-04-26] MEDS: Enoxaparin Sodium 40 MG/0.4 ML SYRINGE SC SCH (09:05)
[2017-04-26] MEDS: Famotidine 20 MG TAB PO SCH ×2 (09:06→20:41)
[2017-04-26] MEDS: Fish Oil 1,000 MG CAP PO SCH (09:07)
[2017-04-26] MEDS: Zinc Sulfate 220 MG CAP PO SCH (09:07)
[2017-04-26] MEDS: guaiFENesin ER 600 MG TAB PO SCH ×2 (09:07→20:41)
[2017-04-26] MEDS: Saccharomyces boulardii 250 MG CAP PO SCH (09:07)
[2017-04-26] MEDS: Acetaminophen 325 MG TAB PO PRN ×2 (09:11→20:35)
[2017-04-26] MEDS: Amoxicillin/Potassium Clav 500 MG TAB PO SCH ×2 (10:59→20:35)
--- NOTE | 2017-04-26 13:26 | PQF ---
CLINICAL DOCUMENTATION IMPROVEMENT CLARIFICATION FORM: ICD-10 Updated PLEASE DO AN ADDENDUM TO THE PROGRESS NOTE WITH ANY DOCUMENTATION UPDATES OR ADDITIONS AND CARRY THROUGH TO DC SUMMARY. THANK YOU. DATE: 04/26/17 ATTN: Dr. Carey Please exercise your independent, professional judgment in responding to the clarification form. Clinical indicators are provided on the bottom of this form for your review Please check appropriate box(s): [ ] Acute Renal Failure (ARF) / Acute Kidney Injury (DELROY) (Please specify associated condition, if applicable) [ ] Other Etiology or underlying conditions related to the diagnosis of ARF/ DELROY: [ ] Acute on Chronic Renal Failure please specify Stage of CKD (see below) [ ] CKD without ARF/DELROY please specify Stage of CKD [ ] Other diagnosis [ ] Unable to determine In addition, please specify: Present on Admission (POA): [ ] Yes [ ] No [ ] Unable to determine National Kidney Foundation Guidelines for CKD Staging Stage I Kidney damage with normal or increased GFR GFR > 90 Stage II Kidney damage with mildly decreased GFR GFR 60-89 Stage III Kidney damage with moderately decreased GFR GFR 30-59 Stage IV Kidney damage with severely decreased GFR GFR 16-29 Stage V Kidney failure GFR <15 ESRD End Stage Renal Disease On dialysis For continuity of documentation, please document condition throughout progress notes and discharge summary. Thank You. CLINICAL INDICATORS - SIGNS / SYMPTOMS / LABS 04/21/17 04/22/17 04/24/17 LAB: CREATININE 1.68 1.27 1.09 ESTIMATED GFR 40 55 65 CARDIOLOGY PN 04/22: RENAL FAILURE IS ALSO IMPROVED. CREATININE HAS GONE FROM 1.68 TO 1.27 PULMONOLOGY PN 04/24: RENAL FAILURE. RISKS: H&P: HE NOTES HE JUST DOES NOT FEEL LIKE EATING. S/P RECENT COLONIC RESECTION. CARDIOLOGY PN 04/22: HYPONATREMIA, ALSO PROBABLY R/T DEHYDRATION & DIURETICS IMPROVING W/ SODIUM NOW UP TO 132, IT WAS 129 ON ADMIT. TREATMENT: JUL 19: SODIUM CHLORIDE NS 0.9% 1,000 MLS @ 100MLS/HR CPOE 04/21, 04/23 BMP AM RUN Thank you, Tabatha (This form is maintained as a part of the permanent medical record) 2015 [employer] All Rights Reserved Tabatha Rhodes RN, BSN [email or web address] Office: [phone] [facility]
--- NOTE | 2017-04-26 19:22 | PRG ---
DATE OF SERVICE: 04/26/2017 Jose Casillas is doing well today. He is afebrile. Exam is unchanged. He is tolerating his t. Output out of his CT-guided drain tube is nothing. We tried irrigating the tube and nothing flus hes through it; it sprays out the side. We will discuss with Radiology, and they will replace this t ube in the morning, after which he could be discharged home. The patient and his decided upon a [facility] agency. We are working out care as an outpatient to help him with his ileost letty, open wound lower abdomen, and colocutaneous fistula. Hopefully, he can be discharged home nicole urias
[2017-04-26] MEDS: Magnesium Oxide 400 MG TAB PO SCH (20:35)
[2017-04-26] MEDS: Ubidecarenone 50 MG CAP PO SCH (20:41)
[2017-04-27] MEDS: Potassium Chloride 10 MEQ TAB PO SCH (08:59)
[2017-04-27] MEDS: Calcium/Multivitamins W-Iron 1 TAB TAB PO SCH (09:02)
[2017-04-27] MEDS: Aspirin 81 mg Enteric Coated Tablet PO SCH (09:02)
[2017-04-27] MEDS: Ascorbic Acid 500 mg Chewable Tablet PO SCH (09:02)
[2017-04-27] MEDS: Enoxaparin Sodium 40 MG/0.4 ML SYRINGE SC SCH (09:03)
[2017-04-27] MEDS: guaiFENesin ER 600 MG TAB PO SCH (09:04)
[2017-04-27] MEDS: Famotidine 20 MG TAB PO SCH (09:04)
[2017-04-27] MEDS: Saccharomyces boulardii 250 MG CAP PO SCH (09:04)
[2017-04-27] MEDS: Fish Oil 1,000 MG CAP PO SCH (09:04)
[2017-04-27] MEDS: Zinc Sulfate 220 MG CAP PO SCH (09:05)
[2017-04-27] MEDS: Amoxicillin/Potassium Clav 500 MG TAB PO SCH (09:07)
[2017-04-27] MEDS: Acetaminophen 325 MG TAB PO PRN (09:54)
--- NOTE | 2017-04-27 10:09 | PRG ---
DATE OF SERVICE: 04/27/2017 SUBJECTIVE: Mr. Casillas is doing fairly well. He is admitted to have CT drainage tube replaced t apryl per Dr. Butler. After that, he can be discharged. Otherwise, no other medical complaints are n oted, although the notes some wound drainage. She is still concerned about his overall conditio n, which I reminded her that he is still doing very well. PHYSICAL EXAMINATION: VITAL SIGNS: Temperature 98.4, blood pressure 105/63. LUNGS: Clear. HEART: Reveals an irregular regular rhythm without murmur, gallops or rubs. LABORATORY DATA: His blood sugars are adequately controlled. Wound cultures did reveal E. coli and Pseudomonas. He is currently on Augmentin. IMPRESSION: 1. Atrial fibrillation with rapid ventricular response, now controlled. 2. Dehydration. 3. CT assess intraabdominal cavity, now under CT guided drainage with tube to be replaced. PLAN: He can be discharged after CT guided biopsy. We will follow up with Dr. Butler and Dr. Saba . He will follow up with me on a p.r.n. basis. He will continue on his home medications.
--- NOTE | 2017-04-27 11:05 | SPC ---
FLUOROSCOPIC GUIDED PERCUTANEOUS CATHETER EXCHANGE: Date: 04/27/17 HISTORY: Abdominal abscess. Leak of indwelling drainage catheter. FINDINGS: After explaining the procedure and answering all questions, the external portion of the left anterior abdominal drain were sterilely prepped. Small amount of contrast and saline were injected through th e drain, revealing a leak at the hub. The drain is ligated and a .035 Bentson wire was used to hold position, exchanging the catheter for a new 8 [place] Locking Loop drain, positioned within the left abdomen. Small amount of contrast was in stilled to confirm position. The catheter was flushed and secured externally. The patient tolerated t he procedure well and was improved in unchanged condition. Fluoro time equals 0.3 minutes. IMPRESSION: Technically successful fluoroscopic exchange left abdominal abscess drainage catheter. POS: [facility]
[2017-04-27] MEDS ORDERED: Iopamidol 300 61% 100 ML VIAL FS ONE (11:56)
[2017-04-27 13:17] VITALS: BP 100/67; TEMP 98.1
[2017-04-27 13:53] VITALS: BMI 22.6
--- NOTE | 2017-04-27 14:28 | PRG ---
DATE OF SERVICE: 04/27/2017 SUBJECTIVE: Mr. Jose Casillas is doing well today. He went today for exchange of his CT-guided drainage catheter, which was not functioning well. He underwent this interventional fluoroscopy succ essfully. The has been instructed on how to flush this. The patient remains afebrile, tolerati ng his diet. His abdominal exam is unchanged. I would recommend he will be discharged home. He has a colocutaneous fistula, splenic flexure and hopefully the percutaneous drainage will help resolve t his nonoperatively. After this, it is demonstrated to be resolved, we can reverse his ileostomy. I believe his hospitalization on this occasion was AFib with RVR with dehydration related to his ileost letty. Contrast enema this hospitalization has revealed that his colorectal anastomosis has healed and there is no longer a leak. Once his colocutaneous fistula from the splenic flexure is resolved, we can reverse his ileostomy hopefully in May. The patient returned to see me in the office and he has an appointment to see me on 05/06/2017 at 08:30. [facility] will assume his outpatie nt home health care. I have discussed with his .
--- NOTE | 2017-05-01 14:33 | EKG ---
Test Reason : Blood Pressure : / mmHG Vent. Rate : 132 BPM Atrial Rate : 127 BPM P-R Int : 000 ms QRS Dur : 092 ms QT Int : 298 ms P-R-T Axes : 000 -25 094 degrees QTc Int : 441 ms Atrial fibrillation with rapid ventricular response Nonspecific ST and T wave abnormality Left axis deviation Abnormal ECG Confirmed by JAYLIN SHERIDAN DO ([id number]), editor farm journal SYDNIE WATSON ([id number]) on 05/01/2017 2:33:08 PM Referred By: ARVIN Confirmed By:JAYLIN SHERIDAN DO
== END 2017-04-27 14:24 | disposition home health service (06) | DRG 308 ==
LOC: ERS 10:23 → 2NO 13:30 → SURG B 15:38
PROVIDERS: ADMIT Family Medicine; ATTEND Family Medicine
PROC: 0J9830Z Drainage of Abdomen Subcutaneous Tissue and Fascia with Drainage Device, Percutaneous Approach (ICD-10-PCS; principal; 2017-04-23)
DX: I48.91 Unspecified atrial fibrillation (principal); G93.40 Encephalopathy, unspecified; K63.2 Fistula of intestine; J90 Pleural effusion, not elsewhere classified; N19 Unspecified kidney failure; I50.32 Chronic diastolic (congestive) heart failure; T81.31XA Disruption of external operation (surgical) wound, not elsewhere classified, initial encounter; R13.10 Dysphagia, unspecified; E87.1 Hypo-osmolality and hyponatremia; K68.11 Postprocedural retroperitoneal abscess; E11.9 Type 2 diabetes mellitus without complications; I10 Essential (primary) hypertension; B96.20 Unspecified Escherichia coli [E. coli] as the cause of diseases classified elsewhere; R63.0 Anorexia; E78.5 Hyperlipidemia, unspecified; D50.9 Iron deficiency anemia, unspecified; E86.0 Dehydration; E86.9 Volume depletion, unspecified; Z93.2 Ileostomy status; Z68.22 Body mass index [BMI] 22.0-22.9, adult; Y83.6 Removal of other organ (partial) (total) as the cause of abnormal reaction of the patient, or of later complication, without mention of misadventure at the time of the procedure; Y92.234 Operating room of hospital as the place of occurrence of the external cause
CPT/HCPCS: 36415; 36416; 49060; 49423; 49424; 71010; 74177; 74270; 77002; 80048; 80053; 80162; 82550; 82553; 82728; 83540; 83550; 83605; 83690; 83880; 84443; 84484; 85014; 85018; 85025; 85610; 85730; 86850; 86900; 86901; 87070; 87077; 87186; 87205; 93005; 94760; 96365; 96366; 96376; C1729; G8978-GP-CK; G8979-GP-CI; G8987-GO-CJ; G8988-GO-CJ; G8989-GO-CJ; J1650; J2250; J2765; J3010; J7050

== ENCOUNTER 2017-05-12 10:48 | Outpatient (CLI) | payer MEDICARE ==
[2017-05-12] MEDS ORDERED: Iopamidol 370 76% 100 ML VIAL ONE ×2 (11:54→16:55)
[2017-05-12] MEDS ORDERED: MD-Gastroview 120 ML BOT ONE (12:00)
--- NOTE | 2017-05-12 13:26 | RAD ---
FLUOROSCOPIC TUBE CHECK EVALUATION: CLINICAL HISTORY: Prior history of diverticulitis with surgical correction and subsequent abscess formation. Indwellin g drainage catheter continues to produce output, with concern for bowel communication. FINDINGS: Real-time fluoroscopic evaluation performed with injection of small aliquots of radiopaque contrast, Gastrografin. Upon injection of contrast through the drainage catheter, there is a tract-like connec tion of contrast from the catheter site, which is located at the lateral left mid abdomen, and an ova l-shaped region of contrast opacification at the left upper quadrant, underlying the left hemidiaphra gm. This demonstrates a similar configuration when comparing to CT images from drainage placement on 04/23/2017. This pooling of contrast does not conform expectedly to bowel, as it demonstrates the a ppearance of a blind-ending pouch. IMPRESSION: Tract-like communication demonstrated between the terminal aspect of the drainage catheter and a blin d-ending contrast opacified pouch at the left upper quadrant, demonstrating similar morphology to CT images from drainage placement on 04/23/2017. No fluoroscopic evidence for direct communication of t he catheter site with bowel content. Findings telephoned to the patient's surgeon, Kevin Butler M.D., at 1155 hours on 05/12/2017. CODE CR POS: [facility]
--- NOTE | 2017-05-12 14:16 | CT ---
CT ABDOMEN AND PELVIS WITH CONTRAST: Technique: Multiple axial tomograms were obtained through the abdomen and pelvis with IV enhancement. Oral contrast was administered. History: Re-assess drainage tube catheter. Status post colon resection. Comparison: CT scan of 04-23-17 which was performed during a CT guided drainage procedure of a contai reynaldo perforation in the left upper quadrant. Also compared to a prior CT of 04-22-17 which demonstrate d the circumscribed fluid and air collection in the left upper quadrant anteriorly. FINDINGS: On today's exam a small left pleural effusion is again noted. This may be minimally larger when connor red to 04-22-17. Liver, spleen, and pancreas unremarkable. Adrenal glands and kidneys are unchanged. Bilateral renal c ystic lesions are again noted, one of which is complex posterior right renal cortex. The drainage catheter entering through the anterior left abdomen is seen. The pigtail catheter is pos itioned within the previously noted fluid collection. This collection has been adequately drained at this site. There is contrast within this collection indicting bowel communication. There is communication with a contrast collection which extends superiorly and laterally over the spl een and under the left hemidiaphragm. There is a collection of fluid and contrast in the subdiaphragm atic region compressing the superior spleen and this is measured in the coronal plane at approximatel y 6.7 cm x 3.4 cm. Small bowel loops are normal caliber. Aorta shows atherosclerotic changes and aneurysmal dilatation. Prostatic hypertrophy again noted. No other interval change noted. IMPRESSION: 1. Today's pigtail catheter is adequately positioned within the collection along the anterior left ab domen and this fluid collection at this site has been adequately drained with minimal residual fluid at this site. However, there is communication of contrast and fluid which extends laterally and super iorly into the left subdiaphragmatic region where there is a collection of fluid and contrast under t he left hemidiaphragm, slightly compressing the superior margin of the spleen. 2. The left pleural effusion is minimally larger. 3. Other changes of the abdomen appear stable. POS: OFF
== END 2017-05-12 10:49 | disposition home or self-care (01) ==
LOC: RAD 10:48
PROVIDERS: ATTEND Specialist
DX: S31.109D Unspecified open wound of abdominal wall, unspecified quadrant without penetration into peritoneal cavity, subsequent encounter (principal); Z90.49 Acquired absence of other specified parts of digestive tract
CPT/HCPCS: 74177; 76000; 82565

== ENCOUNTER 2017-05-27 07:41 | Outpatient (CLI) | payer MEDICARE ==
--- NOTE | 2017-05-27 09:14 | RAD ---
CONTRAST ENEMA SOLID COLUMN: HISTORY: Colon perforation with surgical repair. Followup. FINDINGS: Gastrografin contrast was used for single-column contrast enema study. Extensive diverticula arise f rom the colon. There is no evidence of leak. Postoperative changes of the left upper quadrant are a pparent. Radiopaque drain remains within the left upper quadrant. Right lower quadrant ostomy is pa rtially visualized. IMPRESSION: 1. No evidence of recurrent leak from the splenic flexure of the colon. Percutaneous drain remains in place. 2. Diverticulosis. POS: [facility]
[2017-05-27] MEDS ORDERED: MD-Gastroview 120 ML BOT ONE (16:33)
--- NOTE | 2017-05-27 21:43 | HP ---
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 Dr. Bri echols performed endoscopy on 07/06/2014. 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 Argon beam coagulation was performed. He also had some gastric erosions cailin ated. On 04/05/2016, I performed a laparoscopic cholecystectomy with normal cholangiograms. The pat ient subsequently presented with problems from his colonic stricture on 02/13/2017. Dr. Eldridge perform ed a flexible sigmoidoscopy, could not navigate the scope beyond the stricture. The patient underwen t on 02/15/2017, laparoscopic mobilization of splenic flexure, left colon mobilization, laparoscopic sigmoid resection with colorectal anastomosis, 33 mm EEA, anastomosis checked under water without sophia k. Unfortunately, despite these findings, he had returned to the operating room on 02/19/2017 due to the colonic anastomotic leak and had a central line placed. He had drains placed and a laparotomy f or abdominal washout, proper NG tube placement, suture closure at the right posterolateral colorectal anastomotic leak, placement of 2 Horace drains into the pelvis, left gutter extending to the left l ateral subcostal area, a FRANCO drain noted exiting the right lateral subcostal area, left and right gutt er and pelvis, and a diverting ileostomy. The patient postoperatively had a long recovery. He resum ed gastrointestinal function, but had purulent drainage out of his left subcostal drain site initiall y, then this stopped and the drain was removed. He subsequently developed similar purulent drainage from his suprapubic wound and this was treated with a wound VAC and eventually stopped draining. He then developed purulent drainage from the left lateral subcostal old Horace drain site. He underwen t CT evaluation and a contrast enema revealing suspect leak from the splenic flexure area of the colo n into the left upper quadrant with decompression out the left lateral subcostal [place] drain site. The patient was treated with saline irrigation of a pigtail CT-guided catheter to facilitate closure . This drainage initially seized and he underwent contrast evaluation through this pigtail catheter and there was no longer evident connection to the colon, but a blind sac. Followup CAT scan of the a omen after this study revealed absence of any communication to the colon. Approximately a week lat er, he underwent a contrast enema and the colorectal anastomosis had healed and there was no leak, an d there was no drainage from the splenic flexure area. Today, his CT-guided drain was removed. His left upper quadrant wounds are well healed without evidence of infection and without drainage. Supra pubic midline wound tunnels approximately 4 cm cephalad, but there is no evidence of an infection. The patient has a history of intermittent atrial fibrillation. In the office, he had a heart rate of 130. He will be seeing Dr. Saba prior to surgery for medication assessment. Plan is for ileostom y reversal and possible consideration of drainage of his suprapubic wound, opening the wound to facil itate wound care, and closure. I have discussed with the patient having a TAP block preoperatively a nd ileostomy reversal. I have spoken with Dr. Saba personally and he will evaluate him prior to e surgery. ALLERGIES: None. TOBACCO: None. ALCOHOL: None. MEDICATIONS: Aspirin 81 mg a day, doxazosin 0.125 mg daily, magnesium 400 mg daily, vitamin D daily, furosemide 40 mg a day, potassium ER 10 mEq a day, digoxin 0.125 mg daily. In the past, he was on F jose, Cartia XT (diltiazem), famotidine, and tamsulosin; all of which have been discontinued. PAST MEDICAL HISTORY: Type 2 diabetes mellitus, hypertension, hyperlipidemia, atrial fibrillation, h istory of sleep apnea, colonoscopies and EGDs by Dr. Gregory. PAST SURGICAL HISTORY: Laparoscopic cholecystectomy that I performed in the past; left colon operati on as described above; previous cardioversions by Dr. Saba; evaluation by EP, Dr. Velázquez, for SVT, p erformed an ablation, left atrial pacing. The patient was followed by Dr. Kevin Carey and Dr. Amadou Saba. He has had a Watchman procedure in the past, left carotid endarterectomy, aortic aneurysm repair in 2009. PHYSICAL EXAMINATION: VITAL SIGNS: 158 pounds, 70 inches, 22 BMI. Blood pressure 122/79, heart rate 125, temperature 97.9 degrees. Note, the patient has gained weight, approximately 7 pounds, since I saw him last. HEAD, EYES, EARS, NOSE, AND THROAT: Unremarkable. LUNGS: Clear to auscultation. CARDIAC: Regular rate and rhythm without murmur or gallop. ABDOMEN: Soft. Ileostomy in right lower quadrant, granulating wound in suprapubic lower abdomen, ot herwise incision is well healed without evidence of hernia. The suprapubic incision tracks 4 cm ceph alad. EXTREMITIES: Unremarkable. ASSESSMENT AND PLAN: 1. Undesired ileostomy. Plan reversal in the next few weeks. Risks of infection, bleeding, re-oper ation, leakage were explained. He consents. 2. Atrial fibrillation history. Watchman device in place. 3. Type 2 diabetes mellitus.
== END 2017-05-27 07:42 | disposition home or self-care (01) ==
LOC: RAD 07:41
PROVIDERS: ATTEND Specialist
DX: Z48.815 Encounter for surgical aftercare following surgery on the digestive system (principal); Z90.49 Acquired absence of other specified parts of digestive tract; K57.90 Diverticulosis of intestine, part unspecified, without perforation or abscess without bleeding
CPT/HCPCS: 74270

== ENCOUNTER 2017-06-28 13:15 | Inpatient (IN) | payer MEDICARE ==
[2017-06-28 14:02] VITALS: BMI 24.3
--- NOTE | 2017-06-29 13:03 | HP ---
ADDENDUM to H&P #[id number] dictated 05/27/2017 Jose Casillas reports to the office today. He is feeling much better. He has not had any signif icant drainage from his left subcostal wound, where his drains were removed. His suprapubic lower mi dline open wound is slowly healing with normal saline wet to dry dressings. Home Health is seeing frantz charles twice a week for this. The patient's ileostomy is functioning well. Patient has gained the streng th that he is hoping to have his ileostomy reversed soon. I have told him we can reverse that when h e is ready. He does not need a bowel prep prior. He has seen Dr. Feliciano, who was biopsied 2 skin le sions on his left frontal scalp and right preauricular parietal area that reveals some sort of skin c ancer and is being referred to Dr. Horton. I have told the patient and his that they want to coor dinate this under the same anesthetic as his ileostomy reversal, that can be arranged. Again, I have reminded him of the process described this to him the process of ileostomy reversal. Risk of infect ion, bleeding, reoperation, anastomotic leakage were discussed. Questions answered. We will wait fo r the patient to call to schedule ileostomy reversal and expect him to be hospitalized approximately 2 days postoperatively.
[2017-06-30] MEDS ORDERED: Lidocaine 2% w/Epinephrine 1:200K 20 ML VIAL ONE (06:42)
[2017-06-30] MEDS ORDERED: Bupivacaine 0.25% HCL 30 ML VIAL ONE (06:42)
[2017-06-30] MEDS ORDERED: Fentanyl 100 MCG/2 ML VIAL ONE (06:55)
[2017-06-30] MEDS ORDERED: Ketorolac Tromethamine 30 MG/ML VIAL ONE (07:03)
[2017-06-30] MEDS ORDERED: cefOXitin 2 GM, Syringe 1 ML in Sterile Water 10 ML SLOW IVP SCH (07:15)
[2017-06-30] MEDS ORDERED: Ondansetron HCl/PF 4 MG/2 ML Vial IVP PRN ×3 (07:18→10:27)
[2017-06-30] MEDS ORDERED: Promethazine HCl 25 MG/ML VIAL SLOW IVP PRN (08:56)
[2017-06-30] MEDS ORDERED: Promethazine HCl 25 MG/ML VIAL IM PRN (08:56)
--- NOTE | 2017-06-30 10:05 | OP ---
DATE OF PROCEDURE: 06/30/2017 PREOPERATIVE DIAGNOSES: Undesired ileostomy status post laparoscopic colon resection, anastomotic le ak status post laparotomy, drain placement and then nonoperative treatment and healing closure of spl enic flexure fistula with healing verified by contrast enema and CAT scan. POSTOPERATIVE DIAGNOSES: Undesired ileostomy status post laparoscopic colon resection, anastomotic l eak status post laparotomy, drain placement and then nonoperative treatment and healing closure of sp lenic flexure fistula with healing verified by contrast enema and CAT scan. PROCEDURE: Ileostomy reversal through an incisional elliptical right lower quadrant adhesiolysis. SURGEON: Kevin Butler M.D. ANESTHESIA: General. Local 0.5% Marcaine, 30 mL, mixed with 1% Xylocaine with epinephrine, 30 mL to massiel mixture used volume. ESTIMATED BLOOD LOSS: 10 mL. BLOOD TRANSFUSED: None. DESCRIPTION OF PROCEDURE: The patient taken to the operating room where under general anesthesia, il eostomy closed with 2-0 silk suture. Abdomen clipped of hair, prepared with Betadine and draped in r outine fashion. Elliptical incision was made around the ileostomy right lower quadrant down through the skin and subcutaneous tissue and ileostomy dissected free from the subcutaneous tissue and fascia . Abdominal wall and then adhesiolysis carried out with careful blunt dissection, freeing the ileost letty and then identifying the terminal ileum stump and dissected free, bringing it into the wound. St aple anastomosis then performed after seromuscular sutures of 3-0 silk were placed to align the two s egments of ileum. Opening made in the old staple lines. Stapler inserted, JOHN-75 stapler used and f ired and then common enterostomy closed with a second fire of the JOHN stapler. Anastomosis was palpa zuly and noted to be intact. Good hemostasis was noted. Mesenteric defect closed with 3-0 silk sutur es. Sterile muscular sutures of 3-0 silk used to unload the staple line and ileum dropped back into the abdominal cavity noting good circulation and viability of the two ends. Wound irrigated. Rn Diabetes Educator ior fascia and peritoneum complex approximated with continuous suture of #1 PDS. Skin and subcutaneo us tissue of abdominal wall irrigated and anterior fascia approximated with [id number] suture of 0 PDS pop offs. Skin and subcutaneous tissues irrigated. Skin loosely approximated with interrupte d subdermal sutures of 3-0 Monocryl and Telfa anne-marie applied. Patient had an inferior wound that was healing secondarily and the skin opening was becoming too small to care for the wound. Thus this was opened slightly to facilitate wound care and a normal saline wet to dry dressing gauze applied and t hen local anesthetic mixture filled in the skin and subcutaneous tissue about the operative side and PREVENA incisional VAC placed. The patient tolerated the procedure well and transferred to recovery in stable condition.
[2017-06-30] MEDS ORDERED: Dextrose 50% Abboject 50 ML SYRINGE SLOW IVP PRN ×2 (10:27→10:42)
[2017-06-30] MEDS ORDERED: Ondansetron ODT 4 MG TAB PO PRN (10:27)
[2017-06-30] MEDS ORDERED: hydrALAZINE 20 MG/ML VIAL SLOW IVP PRN (10:27)
[2017-06-30] MEDS ORDERED: Dextrose 5% in Water 1,000 ML IV PRN ×2 (10:27→10:42)
[2017-06-30] MEDS ORDERED: Ketorolac Tromethamine 30 MG/ML VIAL IVP PRN (10:39)
[2017-06-30] MEDS ORDERED: HumaLOG 300 UNITS/3 ML VIAL SC PRN (10:42)
[2017-06-30] MEDS: Acetaminophen 1,000 MG in Premix Bag 1 BAG IVPB SCH ×3 (14:16→19:59)
[2017-06-30] MEDS ORDERED: Metoprolol Tartrate 5 MG/5 ML VIAL ONE (16:16)
[2017-06-30] MEDS ORDERED: Lidocaine 1% PF 5 ML VIAL ONE (16:16)
[2017-06-30] MEDS ORDERED: Propofol 200 MG/20 ML VIAL ONE (16:16)
[2017-06-30] MEDS ORDERED: Glycopyrrolate 0.2 MG/ML 5 ML SYRINGE ONE (16:16)
[2017-06-30] MEDS ORDERED: PHENYLEPHRINE-NS 100 MCG/ML 10 ML SYRINGE ONE (16:16)
[2017-06-30] MEDS ORDERED: Ondansetron HCl/PF 4 MG/2 ML Vial ONE (16:16)
[2017-06-30] MEDS: D5 1/2 NS w/20 mEq KCL 1,000 ML IV SCH ×2 (17:35→20:00)
[2017-06-30] MEDS: Enoxaparin Sodium 40 MG/0.4 ML SYRINGE SC SCH (20:00)
[2017-06-30] MEDS: Famotidine 20 MG TAB PO SCH (20:01)
[2017-06-30] MEDS ORDERED: Famotidine/PF 20 mg/2ml Vial SLOW IVP SCH (21:00)
[2017-07-01] MEDS: Acetaminophen 1,000 MG in Premix Bag 1 BAG IVPB SCH ×2 (01:31→08:35)
[2017-07-01 04:22] LABS: #Eosinphils 0.1 thou/uL (0.0-0.7); #Lymphocytes 0.4 thou/uL (1.20-3.40); #Monocytes 0.5 thou/uL (0.11-0.59); %Basophils 0.6 % (0.0-1.0); %Eosinophils 1.2 % (0.0-10.0); %Lymphocytes 6.6 % (21.0-51.0); %Monocytes 8.4 % (0.0-10.0); %Neutrophils 83.2 % (42.0-75.0); Hemoglobin 10.5 g/dL (14.0-18.0); Mean Corpuscular HGB CONC 32.8 g/dL (32.0-36.0); Mean Corpuscular Hemoglobin 35.2 pg (27.0-31.0); Mean Platelet Volume 7.3 fL (7.4-10.4); Platelet Count 212 thou/uL (130-400); RBC Distribution Width 13.6 % (11.5-14.5); Red Blood Cell (RBC) Count 2.99 mill/uL (4.70-6.10)
[2017-07-01 04:37] LABS: Anion Gap 9 mmol/L (10-20); BUN (Urea Nitrogen) 16 mg/dL (8.4-25.7); Calc. Creatinine Clearance 49 mL/min (70-130); Carbon Dioxide 27 mmol/L (23-31); Chloride 103 mmol/L (98-107); Estimated GFR-MDRD 54; Glucose 139 mg/dL (83-110); Potassium 4.3 mmol/L (3.5-5.1); Sodium 135 mmol/L (136-145)
[2017-07-01] MEDS: Aspirin 81 mg Enteric Coated Tablet PO SCH (08:38)
[2017-07-01] MEDS: Famotidine 20 MG TAB PO SCH ×2 (08:38→20:32)
[2017-07-01] MEDS ORDERED: traMADol HCl 50 MG TAB PO PRN ×2 (08:39)
[2017-07-01] MEDS ORDERED: Ibuprofen 600 MG TAB PO PRN (08:39)
[2017-07-01] MEDS ORDERED: Ibuprofen 200 MG TAB PO PRN (08:53)
[2017-07-01] MEDS: D5 1/2 NS w/20 mEq KCL 1,000 ML IV SCH (13:20)
[2017-07-01] MEDS: Acetaminophen 500 MG TAB PO PRN ×2 (15:36→21:13)
[2017-07-01] MEDS: Enoxaparin Sodium 40 MG/0.4 ML SYRINGE SC SCH (20:32)
--- NOTE | 2017-07-01 21:17 | PRG ---
DATE OF SERVICE: 07/01/2017 SUBJECTIVE: Mr. Casillas was seen both this morning and again this evening. This morning, he is a febrile. This evening he had a fever to over 101 degrees in response that his heart rate was 107 to 120. OBJECTIVE: VITAL SIGNS: His respiratory rate is 20. Patient feels fine. His surgical site in right lower quad rant. The wound VAC remains in place. LUNGS: Clear to auscultation. CARDIAC: Regular rate and rhythm without murmur or gallop. ABDOMEN: Soft, good bowel sounds. No flatus or stool. No nausea or vomiting. LABORATORY: At this point, his white count is 6, hemoglobin 10.5. Basic metabolic profile is normal . Accu-Cheks 68 to 126. Overall, the patient is doing well. With his fever this evening, we would observe him another 24 to 48 hours. We will obtain a repeat CBC in the morning as well as the base m et. We will continue full liquids at this time and reevaluation in the morning. Fevers related to a telectasis. Although, mobility has been good. He has been ambulating in the hallway.
[2017-07-02 04:24] LABS: #Eosinphils 0.1 thou/uL (0.0-0.7); #Lymphocytes 0.5 thou/uL (1.20-3.40); #Monocytes 0.6 thou/uL (0.11-0.59); #Neutrophils 6.1 thou/uL (1.40-6.50); %Basophils 0.3 % (0.0-1.0); %Eosinophils 0.8 % (0.0-10.0); %Lymphocytes 6.5 % (21.0-51.0); %Monocytes 8.4 % (0.0-10.0); Hemoglobin 10.8 g/dL (14.0-18.0); Mean Corpuscular HGB CONC 31.9 g/dL (32.0-36.0); Mean Corpuscular Hemoglobin 34.4 pg (27.0-31.0); Mean Platelet Volume 7.8 fL (7.4-10.4); Platelet Count 239 thou/uL (130-400); RBC Distribution Width 13.4 % (11.5-14.5); Red Blood Cell (RBC) Count 3.15 mill/uL (4.70-6.10); White Blood Cell (WBC) Count 7.3 thou/uL (4.8-10.8)
[2017-07-02 04:34] LABS: Anion Gap 11 mmol/L (10-20); BUN (Urea Nitrogen) 14 mg/dL (8.4-25.7); Calc. Creatinine Clearance 62 mL/min (70-130); Calcium 9.4 mg/dL (7.8-10.44); Carbon Dioxide 26 mmol/L (23-31); Chloride 103 mmol/L (98-107); Estimated GFR-MDRD 70; Glucose 116 mg/dL (83-110); Potassium 3.6 mmol/L (3.5-5.1); Sodium 136 mmol/L (136-145)
[2017-07-02] MEDS ORDERED: Digoxin 0.125 MG TAB PO SCH (09:00)
[2017-07-02] MEDS: Famotidine 20 MG TAB PO SCH ×2 (09:17→19:54)
[2017-07-02] MEDS: Aspirin 81 mg Enteric Coated Tablet PO SCH (09:17)
--- NOTE | 2017-07-02 10:26 | RAD ---
FRONTAL VIEW CHEST TWO VIEW ABDOMEN: CLINICAL HISTORY: Post ileostomy reversal. FINDINGS: There is a linear right perihilar density indicating atelectasis. No obvious consolidation otherwise depicted. No significant effusion. The bowel gas pattern demonstrates scattered air-filled colon w ith interspersed enteric contrast. There is air-filled distended bowel at the upper to mid abdomen. There is vascular calcification. Cardiac silhouette is at upper limits of normal in size. IMPRESSION: 1. Mild prominence of air and contrast-filled bowel. This could be on the basis of an ileus pattern Recommend continued radiographic followup for confirmation. 2. Right perihilar atelectasis. POS: [facility]
[2017-07-02] MEDS: 1/2 NS w/KCL 20 mEq 1,000 ML IV SCH ×2 (11:07→19:54)
[2017-07-02] MEDS: Enoxaparin Sodium 40 MG/0.4 ML SYRINGE SC SCH (19:55)
--- NOTE | 2017-07-02 21:06 | PRG ---
DATE OF SERVICE: 07/02/2017 SUBJECTIVE: Mr. Casillas is doing well today. He did have fever last night. X-rays today reveale d atelectasis, right perihilar. Abdominal x-rays are nonspecific. He had some nausea and vomiting e arlier today and was kept n.p.o., but allowed to eat again once her nausea resolved and he passed montez te a bit of flatus and had a bowel movement. Patient has not had a subsequent fever. LABORATORY DATA: This morning, his white count is 7, hemoglobin 10.8, which is stable. Basic metabo lic profile is normal. Accu-Cheks are normal. At this point, the patient is doing very well. Would advance his liquids at night, saline lock EM, a dminister full liquids tomorrow, and perhaps he would be ready for discharge home tomorrow.
[2017-07-03 04:55] LABS: #Lymphocytes 0.5 thou/uL (1.20-3.40); #Monocytes 0.6 thou/uL (0.11-0.59); #Neutrophils 3.7 thou/uL (1.40-6.50); %Basophils 0.3 % (0.0-1.0); %Eosinophils 0.7 % (0.0-10.0); %Lymphocytes 10.3 % (21.0-51.0); %Monocytes 12.5 % (0.0-10.0); %Neutrophils 76.3 % (42.0-75.0); Hemoglobin 9.7 g/dL (14.0-18.0); Mean Corpuscular HGB CONC 32.3 g/dL (32.0-36.0); Mean Corpuscular Hemoglobin 35.2 pg (27.0-31.0); Mean Platelet Volume 7.7 fL (7.4-10.4); Platelet Count 213 thou/uL (130-400); RBC Distribution Width 13.4 % (11.5-14.5); Red Blood Cell (RBC) Count 2.76 mill/uL (4.70-6.10); White Blood Cell (WBC) Count 4.8 thou/uL (4.8-10.8)
[2017-07-03 04:59] LABS: Anion Gap 12 mmol/L (10-20); BUN (Urea Nitrogen) 16 mg/dL (8.4-25.7); Calc. Creatinine Clearance 64 mL/min (70-130); Carbon Dioxide 24 mmol/L (23-31); Chloride 105 mmol/L (98-107); Estimated GFR-MDRD 73; Glucose 77 mg/dL (83-110); Potassium 3.6 mmol/L (3.5-5.1); Sodium 137 mmol/L (136-145)
[2017-07-03] MEDS: Aspirin 81 mg Enteric Coated Tablet PO SCH (08:35)
[2017-07-03] MEDS: Famotidine 20 MG TAB PO SCH (08:35)
[2017-07-03 11:25] VITALS: BP 109/70; TEMP 98.2
--- NOTE | 2017-07-03 15:06 | PRG ---
DATE OF SERVICE: 07/03/2017 SUBJECTIVE: Mr. Casillas is doing well today. He has not had any nausea or vomiting. He is timur ating his regular diet. OBJECTIVE: VITAL SIGNS: Temperature 98.2 degrees, 105, respiratory rate 20, 109/55. LUNGS: Clear to auscultation. CARDIAC: Regular rate and rhythm without murmur or gallop. ABDOMEN: Soft, nondistended, nontender. His Prevena incisional wound VAC has been removed. Telfa w icks removed. EXTREMITIES: His midline lower suprapubic wound repacked, normal saline, wet to dry dressings. Dry dressing placed on his ileostomy reversal side incision right lower quadrant. He has chiki. LABORATORY DATA: White count this morning is 4.8, hemoglobin 9.7, which is stable. Basic metabolic profile is normal. ASSESSMENT AND PLAN: Doing well after ileostomy reversal. He is discharged home with followup in my office in 5-10 days. Diet and activity as tolerated. His is skilled, has been previously instructed on caring for hi s superior lower midline incision opening, normal saline wet to dry dressings daily after washing wit h soap and water and his ileostomy reversal incision right lower quadrant with chiki can be left op en and if there is no drainage or covered p.r.n. drainage, he can wash it daily with soap and water i n the bath or shower getting it wet and patting it dry and covering and leaving open. No drainage st atus. Diet and activity as tolerated. Follow up in my office in 5 to 10 days.
--- NOTE | 2017-07-03 20:15 | DIS ---
DATE OF ADMISSION: 06/30/2017 DATE OF DISCHARGE: 07/03/2017 DISCHARGE DIAGNOSES: 1. Ileostomy reversal. 2. Atelectasis. 3. Open incision lower wound, present preoperatively. DISCHARGE INSTRUCTIONS: [id number] Tylenol, Motrin, or if needed Ultram for breakthrough pain . is skilled at taking care for his suprapubic lower midline wound incision, washing with soap and water daily, saline wet to dry dressings. Right lower quadrant incision Prevena Telfa anne-marie shana amanda today, gauze dressing applied. He will remove this dressing tomorrow. He can wash it with soap and water in the bath or shower, pat it dry and cover or leave it open depend on the drainage. He is encouraged to be ambulatory. He will resume his home medications of multivitamins, magnesium, aspir in 81 mg a day, fish oil, Coenzyme Q10, Tylenol p.r.n. pain, glimepiride 2 mg p.o. q.a.m. with meals, vitamin D3, furosemide 20 mg a day, digoxin 0.125 mg a day, diltiazem CD 120 mg p.o. daily. Follow up in my office in 5 to 10 days. HISTORY: A 77-year-old male patient, who I saw in March 2016 and laparoscopic cholecystectomy wit h normal cholangiogram. Subsequently on 02/15/2017, I saw him for diverticular stricture, sigmoid co joon with obstruction, high grade partial obstruction required a 2-day bowel prep, colonoscope could n ot be passed beyond it, performed by Dr. Eldridge in coverage for Dr. Gregory. The patient underwent lapa roscopic mobilization of splenic flexure, laparoscopic mobilization of left colon, laparoscopic sigmo id resection with colorectal 33 mm EEA, anastomosis checked under water without leak. On 02/19/2017, he suffered a leak requiring laparoscopy converted to a low midline laparotomy with abdominal washou t, placement of Horace drains, FRANCO drain and diverting ileostomy. The patient postoperatively did no t have any drainage from his drain sites initially in the left upper quadrant, these were removed. H e later developed drainage from the old drain site in his left upper quadrant and evaluation contrast enema and CAT scans revealed what was suspected to be a splenic flexure area leak. He had a CT guid ed pigtail drainage catheter placed for irrigation and care to facilitate closure. This eventually c eased to drain and it was removed. Followup CAT scans and contrast enemas revealed resolution of thi s leak. The colorectal anastomotic leak had healed and it was widely patent. The patient was admitt ed on this occasion for ileostomy reversal, which he went through the old right lower quadrant incisi on. Postoperatively, he did well. He did have a fever on the second day postoperatively and it was felt to be atelectasis despite his good mobility efforts. Chest x-ray revealed atelectasis, right pe rihilar. Fevers resolved and did not return. His white count remained normal. He convalesced to re sume bowel function and tolerated his diabetic diet and is being discharged home at this time to resu me his home medications and follow up in my office in 5 to 10 days.
== END 2017-07-03 15:15 | disposition home health service (06) | DRG 330 ==
LOC: SURG A 06-30 05:56
PROVIDERS: ADMIT Specialist; ATTEND Specialist
PROC: 0DBB0ZZ Excision of Ileum, Open Approach (ICD-10-PCS; principal; 2017-06-30)
DX: Z43.2 Encounter for attention to ileostomy (principal); J98.11 Atelectasis; E11.9 Type 2 diabetes mellitus without complications; C44.40 Unspecified malignant neoplasm of skin of scalp and neck; Z90.49 Acquired absence of other specified parts of digestive tract; I10 Essential (primary) hypertension; E78.00 Pure hypercholesterolemia, unspecified; Z79.4 Long term (current) use of insulin; Z87.891 Personal history of nicotine dependence; Z88.8 Allergy status to other drugs, medicaments and biological substances
CPT/HCPCS: 36415; 36416; 71046; 74022; 80048; 85025; 88304; 93005; 93010; A4216; J0131; J0694; J1650; J1885; J2001; J2405; J2704; J3010; Q0162; S0020; S0028

== ENCOUNTER 2017-06-28 13:20 | Outpatient (CLI) | payer MEDICARE ==
--- NOTE | 2017-06-28 15:35 | RAD ---
PA AND LATERAL CHEST: Indication: Chest pain. Comparison: 02-17-17 FINDINGS: No airspace consolidation is presently evident. There are small bilateral pleural effusions. Heart si ze is within normal limits. No definite pneumothorax is evident. Chronic osseous changes are similar. IMPRESSION: Small bilateral pleural. POS: [facility]
--- NOTE | 2017-06-28 15:35 | EKG ---
Test Reason : Blood Pressure : / mmHG Vent. Rate : 088 BPM Atrial Rate : 087 BPM P-R Int : 000 ms QRS Dur : 092 ms QT Int : 372 ms P-R-T Axes : 000 021 -13 degrees QTc Int : 450 ms Atrial fibrillation with premature ventricular or aberrantly conducted complexes RSR' or QR pattern in V1 suggests right ventricular conduction delay Nonspecific ST abnormality , probably digitalis effect Abnormal ECG Confirmed by REESE METZGER ([id number]) on 06/28/2017 3:35:09 PM Referred By: SWEETIE Confirmed By:REESE METZGER
[2017-06-28 15:37] LABS: Anion Gap 9 mmol/L (10-20); BUN (Urea Nitrogen) 12 mg/dL (8.4-25.7); Calc. Creatinine Clearance 0 mL/min (70-130); Calcium 10.2 mg/dL (7.8-10.44); Carbon Dioxide 32 mmol/L (23-31); Chloride 101 mmol/L (98-107); Estimated GFR-MDRD 53; Glucose 94 mg/dL (83-110); Potassium 3.8 mmol/L (3.5-5.1); Sodium 138 mmol/L (136-145)
[2017-06-28 15:41] LABS: #Basophils 0.1 thou/uL (0.0-0.2); #Eosinphils 0.2 thou/uL (0.0-0.7); #Lymphocytes 0.8 thou/uL (1.20-3.40); #Monocytes 0.5 thou/uL (0.11-0.59); #Neutrophils 4.8 thou/uL (1.40-6.50); %Basophils 0.9 % (0.0-1.0); %Eosinophils 3.1 % (0.0-10.0); %Lymphocytes 12.8 % (21.0-51.0); %Monocytes 7.9 % (0.0-10.0); %Neutrophils 75.2 % (42.0-75.0); Hemoglobin 11.4 g/dL (14.0-18.0); Hypochromia SLIGHT = 6-15 cells (100X) (0-5/hpf); MDiff Complete? YES; Macrocytosis SLIGHT = 6-15 cells (100X) (0-5/hpf); Mean Corpuscular HGB CONC 31.8 g/dL (32.0-36.0); Mean Corpuscular Hemoglobin 34.2 pg (27.0-31.0); PLT Morphology Comment Appears Adequate; Platelet Count 292 thou/uL (130-400); RBC Distribution Width 14.2 % (11.5-14.5); Red Blood Cell (RBC) Count 3.35 mill/uL (4.70-6.10); White Blood Cell (WBC) Count 6.4 thou/uL (4.8-10.8)
== END 2017-06-28 13:21 | disposition home or self-care (01) ==
LOC: LABBT 13:20
PROVIDERS: ATTEND Specialist
DX: Z01.818 Encounter for other preprocedural examination (principal); Z90.49 Acquired absence of other specified parts of digestive tract
CPT/HCPCS: 71046; 80048; 85025; 93005; 93010

== ENCOUNTER 2017-07-20 14:42 | Emergency (ER) | payer MEDICARE ==
[2017-07-20 15:10] LABS: Hemoglobin 11.5 g/dL (14.0-18.0); Mean Corpuscular HGB CONC 32.6 g/dL (32.0-36.0); Mean Corpuscular Hemoglobin 33.9 pg (27.0-31.0); Mean Platelet Volume 6.8 fL (7.4-10.4); Platelet Count 291 thou/uL (130-400); RBC Distribution Width 12.5 % (11.5-14.5); Red Blood Cell (RBC) Count 3.41 mill/uL (4.70-6.10); White Blood Cell (WBC) Count 8.8 thou/uL (4.8-10.8)
[2017-07-20 15:16] LABS: INR-International Normal Ratio 1.2; PTT 37.3 SEC (22.9-36.1); Prothrombin Time 15.4 SEC (12.0-14.7)
[2017-07-20 15:23] LABS: Band 1 % (5-11); Eosinophils 2 % (0-10); Lymphocytes 10 % (21-51); MDiff Complete? YES; Monocytes 3 % (0-10); Neutrophil 83 % (42-75); PLT Morphology Comment Appears Adequate; Polychromasia SLIGHT = 2-3 cells (100X) (0-2/hpf)
[2017-07-20 15:32] LABS: ALT (SGPT) 17 U/L (8-55); AST (SGOT) 44 U/L (5-34); Albumin 3.1 g/dL (3.4-4.8); Alcohol Less than 10 mg/dL (Less than 10); Alkaline Phosphatase 127 U/L (40-150); Anion Gap 15 mmol/L (10-20); BUN (Urea Nitrogen) 17 mg/dL (8.4-25.7); Bilirubin, Total 0.6 mg/dL (0.2-1.2); CK (CPK) 43 U/L (30-200); Calc. Creatinine Clearance 0 mL/min (70-130); Calcium 10.5 mg/dL (7.8-10.44); Carbon Dioxide 26 mmol/L (23-31); Chloride 99 mmol/L (98-107); Estimated GFR-MDRD 51; Globulin 5.3 g/dL (2.4-3.5); Glucose 219 mg/dL (83-110); Lipase 14 U/L (8-78); Potassium 3.9 mmol/L (3.5-5.1); Protein, Total 8.4 g/dL (5.8-8.1); Sodium 136 mmol/L (136-145)
--- NOTE | 2017-07-20 15:35 | CT ---
CT HEAD NONCONTRAST 07/20/17 HISTORY: Fall. Head injury. COMPARISON: 10/21/16 FINDINGS: There is no evidence of acute intracranial hemorrhage or infarct. Diffuse cortical atrophy and chroni c ischemic small vessel disease are again demonstrated. Encephalomalacia within the left frontopariet al lobe has progressed slightly. Prominence of the ventricular system is greater than on the previous exam. There is no mass effect or shift of midline structures. Minimal mucosal thickening is apparent within the right maxillary sinus. Small amount of fluid layers within the dependent portion of the s phenoid sinus. IMPRESSION: 1. No acute intracranial abnormalities are demonstrated. 2. Continued progression of ventricular dilatation. Clinical correlation regarding other signs and symptoms of normal pressure hydrocephalus is required. POS: JOSH
[2017-07-20 15:36] LABS: CKMB 1.1 ng/mL (0-6.6)
--- NOTE | 2017-07-20 15:36 | CT ---
CT CERVICAL SPINE NONCONTRAST 07/20/17 HISTORY: Fall. Neck injury. FINDINGS: Vertebral body heights and alignment are maintained. There is disc space narrowing and prominent oste ophytosis at each level. No acute fracture or dislocation. Cervicothoracic junction is intact. There is prominent calcification of the arterial structures. Metallic clips are present along the left side of the neck. IMPRESSION: 1. Prominent cervical spondylosis. No acute osseous abnormalities are demonstrated. 2. Atherosclerosis. POS: JOSH
[2017-07-20] MEDS ORDERED: Adacel (T-DAP) 0.5 ML VIAL ONE (15:47)
== END 2017-07-20 17:45 | disposition home or self-care (01) ==
LOC: ERS 14:42
DX: S06.0X0A Concussion without loss of consciousness, initial encounter (principal); S01.81XA Laceration without foreign body of other part of head, initial encounter; S51.012A Laceration without foreign body of left elbow, initial encounter; I48.91 Unspecified atrial fibrillation; I11.0 Hypertensive heart disease with heart failure; I50.9 Heart failure, unspecified; I71.4 Abdominal aortic aneurysm, without rupture; E78.5 Hyperlipidemia, unspecified; E11.9 Type 2 diabetes mellitus without complications; Z79.82 Long term (current) use of aspirin; Z79.899 Other long term (current) drug therapy; W18.09XA Striking against other object with subsequent fall, initial encounter
CPT/HCPCS: 12011; 70450; 72125; 80053; 80307; 82553; 83690; 84484; 85025; 85610; 85730; 90471; 90715; 93005; 94760; 96360

== ENCOUNTER 2017-07-23 21:05 | Emergency (ER) | payer MEDICARE ==
[2017-07-23 21:57] LABS: INR-International Normal Ratio 1.2; PTT 39.6 SEC (22.9-36.1); Prothrombin Time 15.6 SEC (12.0-14.7)
[2017-07-23 22:14] LABS: ALT (SGPT) 8 U/L (8-55); AST (SGOT) 16 U/L (5-34); Albumin 2.5 g/dL (3.4-4.8); Alkaline Phosphatase 99 U/L (40-150); Anion Gap 13 mmol/L (10-20); BUN (Urea Nitrogen) 19 mg/dL (8.4-25.7); Bilirubin, Total 0.5 mg/dL (0.2-1.2); Calc. Creatinine Clearance 0 mL/min (70-130); Calcium 9.7 mg/dL (7.8-10.44); Carbon Dioxide 26 mmol/L (23-31); Chloride 104 mmol/L (98-107); Estimated GFR-MDRD 52; Globulin 4.4 g/dL (2.4-3.5); Glucose 185 mg/dL (83-110); Potassium 3.8 mmol/L (3.5-5.1); Protein, Total 6.9 g/dL (5.8-8.1); Sodium 139 mmol/L (136-145)
[2017-07-23 22:21] LABS: #Eosinphils 0.3 thou/uL (0.0-0.7); #Lymphocytes 0.8 thou/uL (1.20-3.40); #Monocytes 0.6 thou/uL (0.11-0.59); #Neutrophils 5.9 thou/uL (1.40-6.50); %Basophils 0.4 % (0.0-1.0); %Lymphocytes 10.1 % (21.0-51.0); %Monocytes 7.7 % (0.0-10.0); %Neutrophils 77.9 % (42.0-75.0); Hemoglobin 9.4 g/dL (14.0-18.0); MDiff Complete? YES; Macrocytosis SLIGHT = 6-15 cells (100X) (0-5/hpf); Mean Corpuscular HGB CONC 32.2 g/dL (32.0-36.0); Mean Corpuscular Hemoglobin 34.3 pg (27.0-31.0); Mean Platelet Volume 7.3 fL (7.4-10.4); Platelet Count 233 thou/uL (130-400); RBC Distribution Width 12.4 % (11.5-14.5); Red Blood Cell (RBC) Count 2.73 mill/uL (4.70-6.10); White Blood Cell (WBC) Count 7.6 thou/uL (4.8-10.8)
--- NOTE | 2017-07-24 08:29 | CT ---
PRELIMINARY REPORT/[facility]/EMERGENCY AFTER HOURS PROCEDURE: EXAM: CT Abdomen and Pelvis With Intravenous Contrast EXAM DATE/TIME: Exam ordered 07/24/2017 1:33 AM CLINICAL HISTORY: 77 years old, male; Pain; Abdominal pain; Generalized; Prior surgery; Surgery date: 1-6 months; Surge ry type: Ileostomy reversal; Patient HX: 77m C/O dark red blood in loose bowel movements x2 today. Re ports having ileostomy reversed 3 weeks ago w/subsequent loose stools, but no blood prior to today. D enies abd pain, n/v, dysuria or other complaints TECHNIQUE: Axial computed tomography images of the abdomen and pelvis with intravenous contrast. All CT scans at this facility use one or more dose reduction techniques, viz.: automated exposure control; ma/kV adj ustment per patient size (including targeted exams where dose is matched to indication; i.e. head); o r iterative reconstruction technique. Coronal reformatted images were created and reviewed. CONTRAST: 70 mL of ISOVUE 370 administered intravenously. COMPARISON: No relevant prior studies available. FINDINGS: Lower thorax: Small moderate bilateral pleural effusions. Cardiomegaly. ABDOMEN: Liver: Unremarkable. No mass. Gallbladder and bile ducts: Prior cholecystectomy. No ductal dilation. Pancreas: Unremarkable. No mass. No ductal dilation. Spleen: Unremarkable. No splenomegaly. Adrenals: Unremarkable. No mass. Kidneys and ureters: Multiple indeterminate low attenuation lesions of the right kidney, one of which is partially calcified, potentially hyperdense cysts. Kidneys otherwise unremarkable. No hydronephro sis. Stomach and bowel: Surgical anastomosis of the sigmoid colon. Colonic diverticulosis. No diverticulit is. No bowel wall thickening or intestinal obstruction. Appendix: Normal appendix. PELVIS: Bladder: Unremarkable. No mass. Reproductive: Prostatomegaly. ABDOMEN and PELVIS: Intraperitoneal space: Unremarkable. No free air. No significant fluid collection. Bones/joints: No acute fracture. No dislocation. Soft tissues: Left inguinal hernia containing fat only. 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 No ruptur e. No acute aortic syndrome. Lymph nodes: Unremarkable. No enlarged lymph nodes. Other findings: Aortic valve calcification. IMPRESSION: 1. Small moderate bilateral pleural effusions. 2. Aortic valve calcification may indicate aortic valve stenosis. RECOMMEND correlation with echocard iography. Thank you for allowing us to participate in the care of your patient. Dictated and Authenticated by: Graham Gallegos MD 07/24/2017 2:35 AM Central Time ([place] & [place]) FINAL REPORT ABDOMEN AND PELVIC CT SCAN WITH IV CONTRAST: EMERGENCY AFTER HOURS EXAM TIME: 1:30 a.m. DATE: 07/24/17. COMPARISON: 05/12/17. FINDINGS: Aortic valve and mitral annulus calcification. Bilateral pleural effusions, somewhat greater on the right side with bilateral pleural-based atelectatic changes, which is definitely worsened from the pr ior study. Stable atherosclerosis and prominent ectasia of the lower thoracic and abdominal aorta an d right and left iliac arteries. Scarring in the right anterior abdomen and right rectus muscle at t he site of a prior ostomy. Stable renal hypodensities including a calcified focus in the right kidne y. These do not appear to be significantly changed. There is very extensive colonic diverticulosis throughout the colon, but particularly the left colon and sigmoid colon with some minimal nonspecific associated wall thickening in the region of the rectosigmoid junction at the site of prior surgery. No abscess or abnormal fluid collection, or other acute process. POS: JOSH
== END 2017-07-24 03:28 | disposition home or self-care (01) ==
LOC: ERS 21:05
DX: K62.5 Hemorrhage of anus and rectum (principal); I48.91 Unspecified atrial fibrillation; E11.9 Type 2 diabetes mellitus without complications; E78.5 Hyperlipidemia, unspecified; Z86.73 Personal history of transient ischemic attack (TIA), and cerebral infarction without residual deficits; I50.9 Heart failure, unspecified; Z79.899 Other long term (current) drug therapy; Z79.82 Long term (current) use of aspirin
CPT/HCPCS: 74177; 80053; 82274; 85025; 85610; 85730; 94760

== ENCOUNTER 2017-10-01 14:15 | Inpatient (IN) | payer MEDICARE ==
[2017-10-01 15:02] LABS: Hemoglobin 5.6 g/dL (14.0-18.0); Mean Corpuscular HGB CONC 28.7 g/dL (32.0-36.0); Mean Corpuscular Hemoglobin 29.2 pg (27.0-31.0); Mean Platelet Volume 8.3 fL (7.4-10.4); Platelet Count 255 thou/uL (130-400); RBC Distribution Width 14.2 % (11.5-14.5); Red Blood Cell (RBC) Count 1.92 mill/uL (4.70-6.10); White Blood Cell (WBC) Count 8.1 thou/uL (4.8-10.8)
[2017-10-01 15:06] LABS: INR-International Normal Ratio 1.4; Prothrombin Time 17.8 SEC (12.0-14.7)
[2017-10-01 15:19] LABS: ALT (SGPT) 19 U/L (8-55); AST (SGOT) 24 U/L (5-34); Albumin 2.9 g/dL (3.4-4.8); Alkaline Phosphatase 120 U/L (40-150); Anion Gap 14 mmol/L (10-20); BUN (Urea Nitrogen) 22 mg/dL (8.4-25.7); Bilirubin, Total 0.8 mg/dL (0.2-1.2); CK (CPK) 26 U/L (30-200); Calc. Creatinine Clearance 0 mL/min (70-130); Calcium 10.9 mg/dL (7.8-10.44); Carbon Dioxide 32 mmol/L (23-31); Chloride 95 mmol/L (98-107); Estimated GFR-MDRD 35; Globulin 6.6 g/dL (2.4-3.5); Glucose 137 mg/dL (83-110); Lipase 17 U/L (8-78); Potassium 4.1 mmol/L (3.5-5.1); Protein, Total 9.5 g/dL (5.8-8.1); Sodium 137 mmol/L (136-145)
[2017-10-01 15:22] LABS: CKMB 1.2 ng/mL (0-6.6); Troponin I 0.015 ng/mL (< 0.028)
[2017-10-01 15:30] LABS: #Lymphocytes 0.6 thou/uL (1.20-3.40); #Monocytes 0.6 thou/uL (0.11-0.59); #Neutrophils 6.9 thou/uL (1.40-6.50); %Basophils 0.1 % (0.0-1.0); %Eosinophils 0.3 % (0.0-10.0); %Lymphocytes 6.8 % (21.0-51.0); %Monocytes 7.7 % (0.0-10.0); %Neutrophils 85.1 % (42.0-75.0); Anisocytosis SLIGHT = 6-15 cells (100X) (0-5/hpf); Hypochromia SLIGHT = 6-15 cells (100X) (0-5/hpf); MDiff Complete? YES; PLT Morphology Comment Appears Adequate
--- NOTE | 2017-10-01 15:33 | RAD ---
UPRIGHT PORTABLE CHEST ONE VIEW: HISTORY: A 77-year-old male with a history of abnormal lab results showing low iron and an increase in protein with a history of congestive heart failure and atrial fibrillation. COMPARISON: 04/21/2017 FINDINGS: Cardiomegaly with bilateral vascular congestion, minimal interstitial edema, and pleural effusion, ev idence for congestive heart failure. Marked bilateral glenohumeral joint arthropathy changes. IMPRESSION: Evidence for congestive heart failure with some interstitial edema and pleural effusions. POS: C
[2017-10-01] MEDS ORDERED: Furosemide 40 MG/4 ML VIAL ONE (16:51)
[2017-10-01] MEDS ORDERED: Ondansetron ODT 4 MG TAB SL PRN (18:34)
[2017-10-01] MEDS ORDERED: Ondansetron HCl/PF 4 MG/2 ML Vial IVP PRN (18:34)
[2017-10-01] MEDS ORDERED: HYDROcodone/Acetaminophen 5/325 mg Tablet PO PRN (18:49)
[2017-10-01] MEDS ORDERED: traMADol HCl 50 MG TAB PO PRN (19:01)
[2017-10-01 19:02] LABS: Lactic Acid 0.9 mmol/L (0.5-2.2)
[2017-10-01 19:10] LABS: Troponin I 0.021 ng/mL (< 0.028)
[2017-10-01 20:46] VITALS: BMI 26.0
[2017-10-01] MEDS: Pantoprazole 40 MG VIAL IVP SCH (21:14)
[2017-10-01] MEDS: Acetaminophen 325 MG TAB PO PRN (21:14)
--- NOTE | 2017-10-01 21:16 | HP ---
HISTORY OF PRESENT ILLNESS: This is a 77-year-old white male with a history of diabetes, hypertensio n, atrial fibrillation, and history of GI bleed, who was doing relatively well until approximately [place] to[place] of this past year, where he presented with abdominal pain and diverticulitis. He was seen by David Gregory and Dr. Butler. In February, he underwent a laparoscopic sigmoid colectomy. He did fairly well after this and he had a reversal in 06/27/2017. However, the states since then he has cont inued to remain weak with a decreased appetite. She states that lately she has been seeing dark stoo ls. He has also become very short of breath over the past couple of weeks. He has also been falling lately. He was seen in the emergency room and was found to have a hemoglobin of 5.6. Chest x-ray a lso revealed cardiomegaly and pulmonary edema. He was given 2 units of packed red blood cells and La six and he has responded nicely to this. At this time, he is not short of breath. He is actually ly ing flat. He has no complaints of chest pain or shortness of breath at this time. He is urinating f requently. PAST MEDICAL HISTORY: Includes, multiple eye surgeries, hypertension, hyperlipidemia, diabetes, hist ory of chronic atrial fibrillation followed by Dr. Saba, history of diverticulosis and diverticulit is. PAST SURGICAL HISTORY: Include abdominal aneurysm repair in 12/2011, some type of neck surgery in , colonoscopy and EGD in 06/2014, cardiac ablation in 12/2014. He has had a laparoscopic sigmoi d colectomy in 02/2017, and ileostomy reversal in 06/2017. FAMILY HISTORY: Father with heart disease, hypertension, diabetes, and stroke. Mother h ad hyperlipidemia, stroke, and colon cancer. Daughter recently. SOCIAL HISTORY: He is a former smoker. He quit in 2007. He drinks alcohol occasionally. He is ret ired. He is . He was with his of many years. He has been followed by Dr. Debi Carey. MEDICATIONS: Include, Cardia XT 180 mg q. day, aspirin 81 q. day, magnesium 400 mg q. day, vitamin D 5000 units q. day, digoxin 0.125 every Wednesday, Wednesday, and Wednesday, Lasix 20 q. day, and albuterol 2 puffs q.6 hours p.r.n. ALLERGIES: Warfarin, causing a GI bleed and Xarelto, which causes GI bleed. REVIEW OF SYSTEMS: As above. PHYSICAL EXAMINATION: GENERAL: Patient is in no acute distress at this time. He is in no respiratory distress. HEENT: Clear. SKIN: He does appear somewhat pale. NECK: Supple. HEART: Irregularly irregular, rate controlled. LUNGS: Rales, bibasilar, but no wheezing or rhonchi noted. ABDOMEN: Soft, normal bowel sounds. He does have a small wound on his left upper quadrant from a pr ior laparoscopy incision. EXTREMITIES: With 1+ at the most edema. LABORATORY DATA: White count 8.1, H&H 5.6 and 19.6, platelets 255. Electrolytes normal. Creatinine 1.87, BUN 22, glucose 137. BNP 1553. Troponin 10.015. Digoxin level 0.4. Chest x-ray with cardio megaly and bilateral pleural effusions with pulmonary edema. ASSESSMENT: 1. Congestive heart failure, possibly secondary to severe anemia from a chronic possible GI bleed. He has responded nicely to IV Lasix 80 mg. His urine output has been 800 mL over 2 hours. 2. Severe anemia, possibly from a slow gastrointestinal bleed. He has had multiple abdominal surger ies recently with a history of chronic diverticulitis. He is presently receiving his first unit of p acked red blood cells. 3. Laparoscopic incision. Small cellulitis, in which the is concerned about, that has been pre sent for possibly over a month. He has been followed by Dr. Butler. 4. Chronic atrial fibrillation, status post Watchman procedure and is also status post ablation. 5. History of GI bleed, in which his Coumadin and Xarelto were both stopped. He is presently on no blood thinners. He has been taking Aspirin 81 q. day. 6. Hypertension. 7. Hyperlipidemia. PLAN: 1. Transfuse 2 units of packed red blood cells at this time. Continue IV Lasix therapy as needed. The patient so far has responded nicely. 2. Consult Dr. Butler. 3. Consult Dr. Salinas. 4. Consult Dr. Johnson. I have spoken with Dr. Salinas and Dr. Johnson. We will have to determine h is source of bleed. It appears that he possibly has had a slow GI bleed, which has eventually lead t o pulmonary edema. He is responding nicely and hopefully he will continue to improve overnight. We will follow in the morning. 5. Repeat CBC and comp met in the a.m.
[2017-10-01 21:47] LABS: Troponin I 0.019 ng/mL (< 0.028)
[2017-10-02 05:07] LABS: #Lymphocytes 0.6 thou/uL (1.20-3.40); #Monocytes 0.6 thou/uL (0.11-0.59); #Neutrophils 5.4 thou/uL (1.40-6.50); %Basophils 0.2 % (0.0-1.0); %Eosinophils 0.6 % (0.0-10.0); %Lymphocytes 8.2 % (21.0-51.0); %Monocytes 9.7 % (0.0-10.0); %Neutrophils 81.2 % (42.0-75.0); Hemoglobin 7.2 g/dL (14.0-18.0); Mean Corpuscular HGB CONC 31.5 g/dL (32.0-36.0); Mean Corpuscular Hemoglobin 30.5 pg (27.0-31.0); Mean Corpuscular Volume 96.7 fl (80.0-94.0); Platelet Count 189 thou/uL (130-400); RBC Distribution Width 15.5 % (11.5-14.5); Red Blood Cell (RBC) Count 2.35 mill/uL (4.70-6.10); White Blood Cell (WBC) Count 6.6 thou/uL (4.8-10.8)
[2017-10-02 05:37] LABS: ALT (SGPT) 15 U/L (8-55); AST (SGOT) 23 U/L (5-34); Albumin 2.4 g/dL (3.4-4.8); Alkaline Phosphatase 96 U/L (40-150); Anion Gap 10 mmol/L (10-20); BUN (Urea Nitrogen) 20 mg/dL (8.4-25.7); Bilirubin, Total 1.2 mg/dL (0.2-1.2); Calc. Creatinine Clearance 42 mL/min (70-130); Calcium 10.5 mg/dL (7.8-10.44); Carbon Dioxide 33 mmol/L (23-31); Chloride 100 mmol/L (98-107); Estimated GFR-MDRD 42; Globulin 5.8 g/dL (2.4-3.5); Glucose 81 mg/dL (83-110); Potassium 3.7 mmol/L (3.5-5.1); Protein, Total 8.2 g/dL (5.8-8.1); Sodium 139 mmol/L (136-145)
[2017-10-02] MEDS: Furosemide 20 MG TAB PO SCH (09:00)
[2017-10-02] MEDS: Pantoprazole 40 MG VIAL IVP SCH ×2 (09:01→21:04)
--- NOTE | 2017-10-02 10:09 | PRG ---
DATE OF SERVICE: 10/02/2017, 10:00 a.m. SUBJECTIVE: The patient is feeling much better this morning. He is on 2 liters of O2 nasal cannula. No complaints of chest pain or shortness of breath. He is sitting up in bed eating breakfast. Fee ling much better than when he came in. Family is very happy at this time. OBJECTIVE: VITAL SIGNS: Temperature 98.1, pulse 99, respirations 19, pulse ox 96 on 2 liters O2, and blood pres sure 99/60. HEART: Irregularly irregular, rate controlled. LUNGS: Relatively clear. ABDOMEN: Soft, nontender. EXTREMITIES: With trace edema. LABORATORY DATA: White count 6.6, H&H 7.2 and 22.7. Electrolytes normal. Creatinine 1.61, BUN 20, blood sugar 81. Troponin 0.021 and 0.019. ASSESSMENT: 1. Congestive heart failure secondary to severe anemia, much improved. 2. Severe anemia, possibly secondary to slow gastrointestinal bleed. History of multiple abdominal surgeries. Hemoglobin has improved. However, we will give an additional 1 unit of blood today. 3. Laparoscopic incisions stable to be evaluated by General Surgery. 4. Chronic atrial fibrillation, status post Watchman procedure and status post ablation. 5. History of gastrointestinal bleed which Coumadin and Xarelto were both stopped. 6. Hypertension. 7. Hyperlipidemia. PLAN: 1. Transfuse an additional 1 unit of packed red blood cells. 2. Recheck CBC and BMP in the a.m. 3. Further discussions with Dr. Butler, Dr. Salinas and Dr. Johnson. I have spoken with Dr. Johnson this morning.
--- NOTE | 2017-10-02 11:05 | RAD ---
ONE VIEW CHEST: HISTORY: Congestive heart failure. COMPARISON: 10/01/17. FINDINGS: Atherosclerosis of the aorta. Normal cardiac silhouette. The pulmonary vessels are within normal li mits. Small bilateral pleural effusions. No pneumothorax. IMPRESSION: 1. Atherosclerosis. 2. Bilateral pleural effusions. Pulmonary vascular prominence. Volume overload. POS: DEBORAH
[2017-10-02] MEDS ORDERED: Furosemide 20 MG TAB PO SCH (15:00)
--- NOTE | 2017-10-02 19:18 | CON ---
DATE OF CONSULTATION: 10/02/2017 HISTORY OF PRESENT ILLNESS: The patient is a 77-year-old male who was in his normal state of health until few weeks prior to admission when he developed increasing shortness of breath. He de nies any abdominal pain, any nausea, vomiting, any melena or hematochezia. He denies blood thinner u se or NSAIDs. He was noted on emergency room evaluation to have a hemoglobin of 5.6. He did have so me cardiomegaly and pulmonary edema, given 2 units of blood and some Lasix and is feeling much better . He has pathology from 06/2017, which shows some anastomosis of the small bowel. No pathologic abn ormalities were noted. From 02/2017, he had pathology for colorectal sigmoid colon specimen which sh owed acute diverticulitis. No other pathologic abnormalities are noted. From 06/2014, the patient u nderwent EGD and colonoscopy by Dr. Gregory which showed a tubular adenoma and some erosive gastritis. No Helicobacter pylori. Of note, he had arteriovenous malformations of the right colon and at that time, it was felt that these were the source of his anemia. They were treated with argon plasma coa gulation. He was last seen by Dr. Gregory in 04/2017 at that time for dysphagia, anorexia and weight loss. PAST MEDICAL HISTORY: Significant for diverticulitis, sigmoid colon resection, chronic atrial fibril lation, diabetes mellitus and hyperlipidemia. PAST SURGICAL HISTORY: Includes colon resection with ileostomy and reversal, cardiac ablation, [place] cystectomy, neck surgery, abdominal aortic aneurysm repair. MEDICATIONS ON ADMISSION: Include tramadol 50 mg p.o. q.6 hours p.r.n., Coenzyme Q10 one p.o. daily, potassium chloride 10 mEq p.o. q.a.m., magnesium 400 mg p.o. q.a.m., ibuprofen 400 mg p.o. q.6 hours p.r.n., Lasix 20 mg p.o. daily, diltiazem 180 mg p.o. daily, digoxin 0.125 mg p.o. every Wednesday, Wed and Wednesday, vitamin D3 5000 units p.o. q.a.m., aspirin 81 mg p.o. daily. ALLERGIES: No known allergies. SOCIAL HISTORY: He does not smoke or drink. FAMILY HISTORY: Negative for GI or liver disease. REVIEW OF SYSTEMS: CONSTITUTIONAL: No fever or chills, no weight loss. EYES: No blurred vision or double vision. ENT: No sore throat or earaches. CARDIOVASCULAR: Positive for palpitations. Nega tive for chest pain. PULMONARY: Positive for dyspnea on exertion and orthopnea. GI: See above. G ENITOURINARY: No hematuria or dysuria. MUSCULOSKELETAL: No joint pain or muscle weakness. SKIN: No rashes. NEUROLOGIC: No numbness or seizure activity. PHYSICAL EXAMINATION: GENERAL: Shows a pale white male in no acute distress. VITAL SIGNS: Temperature 99.5, pulse 86, respiratory rate 18, blood pressure 105/52. HEENT: Unremarkable. NECK: Supple. CHEST: Clear. CARDIOVASCULAR: Regular rate and rhythm without murmurs or gallops. ABDOMEN: Soft, somewhat tympanitic and tender diffusely. Bowel sounds are present. RECTAL: Deferred. EXTREMITIES: Normal. NEUROLOGIC: Nonfocal. LABORATORY DATA: Shows a repeat hemoglobin is 7.2, hematocrit 22.7. MCV on admission was 102. PT i s 17.8 with an INR of 1.4. Chemistries show CO2 of 33, creatinine 1.61, glucose 81, calcium 10.5, al bumin 2.4, and digoxin level 0.4. ASSESSMENT: 1. Severe microcytic anemia. 2. Congestive heart failure, probably secondary to anemia. 3. Chronic atrial fibrillation - status post Watchman. 4. Hypertension. 5. Hyperlipidemia. 6. History of right colonic arteriovenous malformations, treated with argon plasma coagulation in . RECOMMENDATIONS: 1. Agree with transfusion plans. 2. We will consider upper endoscopy. 3. PPI.
--- NOTE | 2017-10-02 19:38 | CON ---
DATE OF CONSULTATION: 10/02/2017 HISTORY OF PRESENT ILLNESS: Jose Casillas is a 77-year-old white male with longstanding history of atrial fibrillation, followed by Dr. Saba for many years. He did have recurrent GI bleed and underwent placement of a Watchman in 03/2016 and anticoagulation was discontinued. In 02/2017, he was admitted with small-bowel obstruction that required surgery. He had some problems with diastolic heart failure during that admission. He was last seen in the office on 07/27/2017 after he had reversal of his ileostomy on 07/06/2017. His heart rate was somewhat elevated and diltiazem was increased to 180 daily. There is also of note that in 07/2014, he had a negative Cardiolite test here at [facility]. He now is admitted with increased weakness, shortness of breath and dark stools. He also has been falling lately. He denies any chest discomfort. When he presented to the emergency room, he had a hemoglobin of 5.1. He was given 2 units of packed red blood cells as well as Lasix and his shortness of breath improved. PAST MEDICAL HISTORY: Chronic atrial fibrillation, hypertension, hyperlipidemia , diastolic heart failure, diabetes, history of diverticulosis. OPERATIONS: Placement of Watchman in 03/2016, atrial fibrillation ablation in 12/2014, abdominal aortic aneurysm repair, neck surgery, laparoscopic sigmoid colon resection in 02/2017 and reversal of the ileostomy in 06/2017. MEDICATIONS: Aspirin 81 q.a.m.; digoxin 0.125 every Wednesday, Wednesday and Wednesday; diltiazem 180 q.a.m.; furosemide 20 mg daily; ibuprofen 400 q.6 hours p.r.n.; magnesium 400 q.a.m.; omega 3; potassium 10 mEq q.a.m.; tramadol 50 mg q.6 hours. ALLERGIES: None. SOCIAL HISTORY: He stopped smoking in 2007. Occasionally drinks alcohol. FAMILY HISTORY: Father had heart disease. REVIEW OF SYSTEMS: Twelve point review of systems otherwise unremarkable. PHYSICAL EXAMINATION: VITAL SIGNS: Blood pressure 99/60, pulse 99, atrial fibrillation on the monitor. HEENT: PERRL. NECK: Supple. LUNGS: Chest reveals decreased breath sounds at both bases. CARDIAC: S1, S2 normal without any S3, S4 or murmurs. ABDOMEN: Normal bowel sounds, without tenderness. EXTREMITIES: Revealed 1+ pretibial edema. NEUROLOGIC: Grossly intact. SKIN: Warm and dry. LABORATORY DATA: I do not see any EKG on the chart. Hemoglobin on admission was 5.6 and now is up to 7.2, hematocrit 22.7, white count 6600, platelets 189, 000. Sodium 139, potassium 3.7, chloride 100, carbon dioxide 33, BUN 20, creatinine 1.61. IMPRESSION: 1. Gastrointestinal bleeding. 2. Chronic atrial fibrillation. 3. History of Watchman, placed in 03/2016. 4. History of diastolic heart failure. 5. Hypertension. 6. Hypercholesterolemia. PLAN: Mr. Casillas's heart rate appears to be under adequate control at this time. He is going to receive another unit of blood today. GI consult is pending. Mr. Casillas can continue to be treated with aspirin 81 daily and does not require anticoagulation with the Watchman in place. With his lower extremity edema and pleural effusions on chest x-ray, he will need to continue to be diuresed. ANJEL
[2017-10-02] MEDS: Acetaminophen 325 MG TAB PO PRN (21:04)
--- NOTE | 2017-10-03 04:32 | CON ---
DATE OF CONSULTATION: 10/02/2017 HISTORY OF PRESENT ILLNESS: Mr. Casillas is a 77-year-old man who underwent a colectomy by Dr. Jaret lynn for diverticulitis. He had an ileostomy which was reversed. He states that he has been graduall y feeling weaker and more lightheaded, so his urged him to come to the emergency room yesterday where he was found to be profoundly anemic. He was admitted and transfused and is now feeling quite a bit better. He has not noticed any real changes in his bowel habits, but states that his told him that his stools were dark in color. He has not had any nausea or vomiting. He does have a hist ory of erosive gastritis in the past, but does not know if he is taking any medication for this, he s tates that his is the one who manages all the medications. PAST MEDICAL HISTORY: Mostly through chart review as the patient is a very vague historian. He does have a history of diverticulitis, requiring colectomy and later ostomy takedown. He has a history o f chronic atrial fibrillation. He was on Coumadin and Xarelto in the past, but had GI bleeding on , so these were stopped. He also has a history of diabetes, hyperlipidemia, and hypertension. PAST SURGICAL HISTORY: Includes abdominal aneurysm repair in 2011, cardiac ablation, sigmoid colecto my and ostomy reversal and neck surgery. FAMILY HISTORY: Heart disease, high blood pressure and diabetes. Also, there is a family history of colon cancer. SOCIAL HISTORY: Occasional alcohol, no drugs. Former smoker. OUTPATIENT MEDICATIONS: According to the medication reconciliation record include aspirin, vitamin D 3, magnesium, omega 3 fish oil, potassium, Coenzyme Q10, digoxin, diltiazem, Lasix, and p.r.n. tramad ol, ibuprofen, and Tylenol. PHYSICAL EXAMINATION: GENERAL: I saw him this afternoon, he was resting comfortably and in no acute distress with blood tr ansfusing. VITAL SIGNS: He has been afebrile since his admission. Heart rate 86, respirations 20, 97% saturate d on 2 liters nasal cannula, blood pressure 127/60. GENERAL: Reveals a pleasant elderly gentleman in no acute distress. He is a vague historian, but co operative with examination and is oriented to self and situation. HEENT: Unremarkable. NECK: Supple, without lymphadenopathy or thyroid nodules. HEART: Regular in its rate and rhythm without murmurs, rubs, or gallops. LUNGS: Clear to auscultation bilaterally. ABDOMEN: Soft, nontender, nondistended. He has healed surgical incisions with no palpable hernias o r masses. His laparoscopic port site in the left upper quadrant has some scabbing, but does not appe ar infected. EXTREMITIES: Warm and well perfused. He does have moderate ankle edema. NEUROLOGIC: No focal deficits except some confusion regarding dates and medications. LABORATORY AND DIAGNOSTIC DATA: White count is normal. Initial hemoglobin was 5.6 with hematocrit o f 19.6, which came up to 7.2 and 22.7 after transfusion last night. INR was 1.4, PTT was 39, creatin ine was mildly elevated at 1.87 on admission and is down somewhat to 1.61 today. Troponins are margoth l and LFTs are unremarkable. Digoxin level is 0.40. A chest x-ray on admission showed some pulmonar y edema, which was improved on followup chest x-ray. ASSESSMENT: Severe anemia, it does not appear that his hemoglobin has been normal since his divertic ulitis. He does have a history of erosive gastritis on previous EGD and the report of melenic stools suggest an upper gastrointestinal source. He has never seen any nelida blood in the stool or on the toilet paper, so this is likely a slow, ongoing process. I agree with the recommendation for GI cons ultation. I will await their evaluation. Currently, he does not have any evidence of surgical bleed ing.
[2017-10-03 05:57] LABS: #Eosinphils 0.1 thou/uL (0.0-0.7); #Lymphocytes 0.7 thou/uL (1.20-3.40); #Monocytes 0.7 thou/uL (0.11-0.59); #Neutrophils 6.2 thou/uL (1.40-6.50); %Basophils 0.2 % (0.0-1.0); %Lymphocytes 9.5 % (21.0-51.0); %Monocytes 8.6 % (0.0-10.0); %Neutrophils 80.6 % (42.0-75.0); Hemoglobin 8.1 g/dL (14.0-18.0); Mean Corpuscular HGB CONC 29.9 g/dL (32.0-36.0); Mean Corpuscular Hemoglobin 28.7 pg (27.0-31.0); Mean Corpuscular Volume 96.1 fl (80.0-94.0); Mean Platelet Volume 8.3 fL (7.4-10.4); Platelet Count 185 thou/uL (130-400); RBC Distribution Width 15.3 % (11.5-14.5); Red Blood Cell (RBC) Count 2.83 mill/uL (4.70-6.10); White Blood Cell (WBC) Count 7.7 thou/uL (4.8-10.8)
[2017-10-03 06:27] LABS: Anion Gap 12 mmol/L (10-20); BUN (Urea Nitrogen) 20 mg/dL (8.4-25.7); Calc. Creatinine Clearance 40 mL/min (70-130); Calcium 10.5 mg/dL (7.8-10.44); Carbon Dioxide 30 mmol/L (23-31); Chloride 99 mmol/L (98-107); Estimated GFR-MDRD 43; Glucose 75 mg/dL (83-110); Potassium 3.6 mmol/L (3.5-5.1); Sodium 137 mmol/L (136-145)
[2017-10-03] MEDS: Pantoprazole 40 MG VIAL IVP SCH ×2 (07:34→21:15)
[2017-10-03] MEDS: Furosemide 20 MG TAB PO SCH (07:34)
--- NOTE | 2017-10-03 09:34 | PRG ---
DATE OF SERVICE: 10/03/2017 TIME: 09:00 a.m. SUBJECTIVE: The patient continues to improve. Breathing much easier. No complaints of any chest pa in, shortness of breath, nausea, vomiting. Scheduled for EGD today. OBJECTIVE: VITAL SIGNS: Temperature 98.7, pulse 93, respirations 17, pulse ox 95 on 2 liters O2, bl ood pressure 130/80, minus 130 out today, weight 165 and admit weight 176. ASSESSMENT: 1. Congestive heart failure, secondary to his anemia, improving. 2. Severe anemia, hemoglobin slowly rising. Hemoglobin this morning is 8.1. 3. History of gastrointestinal bleed, in which Coumadin and Xarelto were stopped. Presently venkatesh y has a slow bleed. Scheduled for EGD today. On PPIs. 4. Laparoscopic incisions, stable. 5. Chronic atrial fibrillation, status post Watchman procedure and status post ablation. 6. Hypertension. 7. Hyperlipidemia. PLAN: 1. EGD today. 2. Continue to monitor blood count. 3. Appreciate Dr. Harman, Dr. Salinas, and Dr. Johnson.
[2017-10-03] MEDS ORDERED: Fentanyl 100 MCG/2 ML VIAL ONE (13:25)
[2017-10-03] MEDS ORDERED: PROPOFOL 200 MG/20 ML VIAL ONE (14:07)
[2017-10-03] MEDS ORDERED: Promethazine HCl 25 MG/ML VIAL IM PRN (14:18)
[2017-10-03] MEDS ORDERED: Promethazine HCl 25 MG/ML VIAL SLOW IVP PRN (14:18)
[2017-10-03] MEDS ORDERED: Ondansetron HCl/PF 4 MG/2 ML Vial IVP PRN (14:18)
[2017-10-03] MEDS: Ferrous Sulfate 325 MG TAB PO SCH (17:24)
--- NOTE | 2017-10-03 19:03 | OP ---
DATE OF PROCEDURE: 10/03/2017 PREOPERATIVE DIAGNOSIS: Severe microcytic anemia. PROCEDURE IN DETAIL: After informed consent was obtained, the patient was placed in the left lateral decubitus position. Anesthesia was administered per the Anesthesia Department. Forward-viewing end oscope was inserted into the esophagus under direct visualization with ease and passed to the second portion of the duodenum with ease. Second portion of the duodenum and duodenal bulb were normal. Th e pylorus, antrum, body, fundus and cardia were normal. Retroflexion of the stomach was normal. Eso phagus was normal throughout. The procedure was abbreviated secondary to the patient's hypoxemia, wh ich resolved per the Anesthesia Department. ASSESSMENT: Normal esophagogastroduodenoscopy. RECOMMENDATIONS: 1. Begin iron. 2. Stable from GI standpoint for discharge. 3. Follow up with Dr. Gregory as an outpatient.
--- NOTE | 2017-10-03 21:24 | PDOC.GSPN ---
Surgery Progress Note: Subj - Subjective Narrative: Patient is doing all right today. He feels better in terms of his energy. He did have an EGD this morning which didn't show any significant bleeding sources. He had an appropriate rise in his hemoglobin from 7.2-8.1 after an additional unit of transfusion yesterday. His heart rate has intermittently been slightly elevated at his electrolytes are normal. No abdominal tenderness. Assessment/plan: Severe anemia of unclear source. Likely GI. 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 No evidence of ongoing significant bleeding requiring surgical intervention. I will sign off for now. Surgery Progress Note: Obj - Vital signs Vital signs: Vital Signs - Most Recent Temp Pulse Resp BP Pulse Ox 98.2 F 98 18 123/56 L 95 10/03/17 19:00 10/03/17 19:00 10/03/17 19:00 10/03/17 19:00 10/03/17 19:00 Surgery Progress Note: Results - Labs Result Diagrams: 10/03/17 04:31 10/03/17 04:31
[2017-10-04 05:53] LABS: Anion Gap 10 mmol/L (10-20); BUN (Urea Nitrogen) 19 mg/dL (8.4-25.7); Calc. Creatinine Clearance 45 mL/min (70-130); Calcium 10.4 mg/dL (7.8-10.44); Carbon Dioxide 30 mmol/L (23-31); Chloride 99 mmol/L (98-107); Estimated GFR-MDRD 48; Glucose 74 mg/dL (83-110); Potassium 3.4 mmol/L (3.5-5.1); Sodium 136 mmol/L (136-145)
[2017-10-04 06:14] LABS: #Eosinphils 0.1 thou/uL (0.0-0.7); #Lymphocytes 0.7 thou/uL (1.20-3.40); #Monocytes 0.5 thou/uL (0.11-0.59); #Neutrophils 4.4 thou/uL (1.40-6.50); %Basophils 0.1 % (0.0-1.0); %Eosinophils 1.1 % (0.0-10.0); %Lymphocytes 12.3 % (21.0-51.0); %Monocytes 8.2 % (0.0-10.0); %Neutrophils 78.3 % (42.0-75.0); Anisocytosis SLIGHT = 6-15 cells (100X) (0-5/hpf); Hemoglobin 8.1 g/dL (14.0-18.0); MDiff Complete? YES; Macrocytosis SLIGHT = 6-15 cells (100X) (0-5/hpf); Mean Corpuscular Hemoglobin 27.2 pg (27.0-31.0); Mean Platelet Volume 8.2 fL (7.4-10.4); Platelet Count 191 thou/uL (130-400); Red Blood Cell (RBC) Count 2.98 mill/uL (4.70-6.10); White Blood Cell (WBC) Count 5.6 thou/uL (4.8-10.8)
[2017-10-04] MEDS ORDERED: Digoxin 0.125 MG TAB PO SCH (09:00)
[2017-10-04] MEDS: Pantoprazole 40 MG VIAL IVP SCH ×2 (09:09→21:12)
[2017-10-04] MEDS: Ferrous Sulfate 325 MG TAB PO SCH ×2 (09:10→17:04)
[2017-10-04] MEDS: Furosemide 20 MG TAB PO SCH (09:10)
--- NOTE | 2017-10-04 11:16 | PRG ---
DATE OF SERVICE: 10/04/2017 SUBJECTIVE: The patient is feeling well today. He walked a long way and is not having any shortness of breath or any other complaints. OBJECTIVE: VITAL SIGNS: Temperature 98.0, pulse 92, respiratory rate 17, blood pressure 121/60. CHEST: Clear. CARDIOVASCULAR: Irregular rate and rhythm. ABDOMEN: Benign. LABORATORY DATA: Shows hemoglobin 8.1, hematocrit 28.9. This is the same as yesterday's hemoglobin. ASSESSMENT: 1. Severe microcytic anemia - EGD was normal. The patient has had AVMs of the colon in the past and I suspect these are probably the source of the patient's anemia. 2. Congestive heart failure. 3. Chronic atrial fibrillation - status post Watchman. 4. History of right colonic arteriovenous malformations. RECOMMENDATIONS: 1. Begin iron replacement therapy. 2. Outpatient followup with Dr. Gregory to consider whether repeat colonoscopy would be needed. This will probably be dependent on the patient's response to iron.
--- NOTE | 2017-10-04 12:13 | PDOC.CTH ---
Cardiology Progress Note - Subjective Awake, family at bedside. Denies chest pain, N/V/D, denies any further rectal bleeding. Continues to experience some shortness of breath, both at rest and with movement, however, states breathing is MUCH improved after transfusion. No overnight events. - Objective Vital Signs Temp Pulse Pulse Pulse Resp BP BP 10/04/17 11:20 98.3 F 84 16 10/04/17 10:20 83 88 122/60 121/61 10/04/17 09:23 98.0 F 92 17 10/04/17 09:10 96 10/04/17 04:00 98.2 F 96 21 H BP BP Pulse Ox Pulse Ox Pulse Ox 10/04/17 11:20 117/55 L 99 10/04/17 10:20 97 96 10/04/17 09:23 121/60 94 L 10/04/17 09:10 10/04/17 04:00 114/55 L 96 Weight 162 lb 6.4 oz 10/03/17 10/04/17 10/05/17 06:59 06:59 06:59 Intake Total 1670 720 Output Total 1800 650 Balance -130 70 - Physical Examination General/Neuro: alert & oriented x3, NAD Neck: no JVD present Lungs: unlabored respirations, other: (scattered rales posteriorly) Heart: other: (irregularly irregular) Abdomen: NT/ND, soft Extremities: + edema B (trace edema BLE) - Telemetry Telemetry Rhythm: AFib - Labs Result Diagrams: 10/04/17 04:34 10/04/17 04:34 Troponin/CKMB CK-MB (CK-2) 1.2 ng/mL (0-6.6) 10/01/17 14:44 Troponin I 0.019 ng/mL (< 0.028) 10/01/17 21:13 - Assessment/Plan 1.Diastolic HF-BNP >1550 on admisssion, scattered rales t/o, trace BLE edema. Additional dose furosemide 40mg IVP now, then 20mg PO BID 2.Acute GI Bleed-normal EGD, hx: AVMs in colon, probable source of bleeding. Will likely need colonoscopy as an outpatient. 3.Acute microcytic anemia-Hgb 5.6, now 8.1 s/p 3 units PRBCs, on PO FeSO4 replacement 4.Chronic AFib-rate controlled, s/p Watchman procedure, no need for anticoagulation 5.Hypokalemia-K+ 3.4, additional 40 mEq now, 10 mEq daily
[2017-10-04] MEDS ORDERED: Potassium Chloride 20 MEQ TAB PO SCH ×2 (12:15→17:00)
[2017-10-04] MEDS ORDERED: Furosemide 40 MG/4 ML VIAL SLOW IVP SCH (14:00)
--- NOTE | 2017-10-04 16:24 | PRG ---
DATE OF SERVICE: 10/04/2017 SUBJECTIVE: Mr. Casillas is feeling much better after his blood transfusion. The patient has a hi story of chronic iron deficiency anemia from slow gastrointestinal blood loss. He received some diur etic and is feeling better now. OBJECTIVE: VITAL SIGNS: Blood pressure 117/55, pulse 84 and regular. LUNGS: Clear. CARDIAC: No new murmur, rub or gallop. ABDOMEN: Soft, nontender. EXTREMITIES: There is no edema. ASSESSMENT: 1. Diastolic congestive heart failure, just received some diuretics. 2. Hypokalemia, just received some potassium. 3. Chronic iron deficiency anemia. PLAN: 1. We will give him a single dose of intravenous iron. 2. Should be ready to go home tomorrow. We would recommend trying to get intravenous iron as an out patient to avoid rehospitalization with anemia.
[2017-10-04] MEDS: Sodium Ferric Gluconate 250 MG in Sodium Chloride 0.9% 250 ML 250 ML IVPB SCH (17:04)
--- NOTE | 2017-10-04 17:09 | EKG ---
Test Reason : Blood Pressure : / mmHG Vent. Rate : 103 BPM Atrial Rate : 094 BPM P-R Int : 000 ms QRS Dur : 096 ms QT Int : 338 ms P-R-T Axes : 000 -26 188 degrees QTc Int : 442 ms Atrial fibrillation with rapid ventricular response with premature ventricular or aberrantly conducte d complexes Low voltage QRS Nonspecific ST and T wave abnormality , probably digitalis effect Abnormal ECG When compared with ECG of 20-JUL-2017 14:53, Nonspecific T wave abnormality now evident in Inferior leads Confirmed by JEREMIAH HOLDEN, . SCassidy (4) on 10/04/2017 5:09:31 PM Referred By: TEODORO KLINE Confirmed By:DR. Cara DANIELS MD
--- NOTE | 2017-10-04 18:00 | DIS ---
DATE OF ADMISSION: 10/01/2017 DATE OF DISCHARGE: 10/04/2017 DISCHARGE DIAGNOSES: 1. Congestive heart failure secondary to anemia. 2. Gastrointestinal bleed. 3. Severe anemia secondary to #2. 4. Chronic atrial fibrillation, status post Watchman procedure and status post ablation. 5. Hypertension. 6. Hyperlipidemia. DISCHARGE MEDICATIONS: Ferrous sulfate 325 one p.o. b.i.d. #65 refills, Protonix 40 one p.o. daily o ne refill, digoxin 0.125 Wednesday, Wednesday, Wednesday, diltiazem 180 mg daily, Lasix 20 p.o. daily, Tram adol 50 p.o. q.6 hours p.r.n., Tylenol p.r.n., aspirin 81 mg daily, vitamin D3 5000 mg daily, magnesi um 400 mg daily, fish oil 1 p.o. daily, KCl 10 mEq daily, CoQ10 [address] Kevin Carey in 2-3 days. BRIEF HISTORY: This is a 77-year-old white male who has history of diabetes, hypertension, atrial fi brillation and history of GI bleed, was doing well until February when he presented with abdominal lexus n and diverticulitis. At that time, he underwent a laparoscopic sigmoid colectomy. He did well and had a reversal on 06/27/2017. However, his states that he continued to remain weak with decreas ed appetite and passing dark stools. He has also become short of breath. He did see Dr. Aurelio rodriguez in the office. He was brought to the emergency room and was found to have hemoglobin of 5.6. Ch est x-ray revealed cardiomegaly and pulmonary edema. He was given 2 units of blood. HOSPITAL COURSE: The patient was admitted. He was observed. He received an additional 1 unit of bl ood. He was started on IV Protonix 40 b.i.d. He underwent an EGD by Dr. Salinas, which did not see any obvious bleeding source. He was also diuresed. He is doing very well today. His hemoglobin is sta bilized at 8.1, on 10/02/2017 was 7.2, on 10/03/2017 8.1, and today 8.1. He will be discharged on above medications and follow up in the office with Dr. Dr. Aurelio Gregory and Dr. Saba.
[2017-10-05] MEDS: Sodium Ferric Gluconate 250 MG in Sodium Chloride 0.9% 250 ML 250 ML IVPB SCH (04:33)
[2017-10-05 05:21] LABS: #Eosinphils 0.1 thou/uL (0.0-0.7); #Lymphocytes 0.6 thou/uL (1.20-3.40); #Monocytes 0.4 thou/uL (0.11-0.59); #Neutrophils 3.6 thou/uL (1.40-6.50); %Eosinophils 1.3 % (0.0-10.0); %Lymphocytes 12.2 % (21.0-51.0); %Monocytes 8.6 % (0.0-10.0); %Neutrophils 77.9 % (42.0-75.0); Hemoglobin 8.3 g/dL (14.0-18.0); Mean Corpuscular HGB CONC 30.6 g/dL (32.0-36.0); Mean Corpuscular Hemoglobin 30.2 pg (27.0-31.0); Mean Corpuscular Volume 98.5 fl (80.0-94.0); Mean Platelet Volume 8.2 fL (7.4-10.4); Platelet Count 154 thou/uL (130-400); RBC Distribution Width 14.9 % (11.5-14.5); Red Blood Cell (RBC) Count 2.75 mill/uL (4.70-6.10); White Blood Cell (WBC) Count 4.6 thou/uL (4.8-10.8)
[2017-10-05 05:39] LABS: Anion Gap 13 mmol/L (10-20); BUN (Urea Nitrogen) 15 mg/dL (8.4-25.7); Calc. Creatinine Clearance 43 mL/min (70-130); Calcium 10.6 mg/dL (7.8-10.44); Carbon Dioxide 28 mmol/L (23-31); Chloride 100 mmol/L (98-107); Estimated GFR-MDRD 49; Glucose 88 mg/dL (83-110); Sodium 137 mmol/L (136-145)
[2017-10-05] MEDS ORDERED: Potassium Chloride 10 MEQ TAB PO SCH (08:00)
[2017-10-05] MEDS ORDERED: Furosemide 20 MG TAB PO SCH (09:00)
--- NOTE | 2017-10-05 09:08 | DIS ---
DATE OF ADMISSION: 10/01/2017 DATE OF DISCHARGE: 10/05/2017 DISCHARGE DIAGNOSES: 1. Diastolic congestive heart failure. 2. Hypokalemia. 3. Chronic iron deficiency anemia and gastrointestinal bleed. 4. Chronic atrial fibrillation, status post Watchman procedure and status post ablation. 5. Hypertension. 6. Hyperlipidemia. DISCHARGE MEDICATIONS: Ferrous sulfate 325 one p.o. b.i.d., Protonix 40 daily, digoxin 0.125 Wednesday, Wednesday, Wednesday, diltiazem 180 mg daily, Lasix 20 p.o. daily, tramadol 50 q.6 hours p.r.n., aspiri n 81 daily, vitamin D3 5000 mg daily, magnesium 400 mg daily, fish oil 1000 p.o. daily, KCl 10 mEq da antonia, CoQ10 50 mg daily, and outpatient iron therapy will be arranged by Dr. Saba. FOLLOWUP: Follow up with Dr. Kevin Carey in 2 to 3 days. In 2 to 3 days, follow up with Dr. Theresa marcano BRIEF HISTORY: A 77-year-old white male with history of the above. The patient presented with a GI bleed. He was doing well until he presented with abdominal pain, diverticulitis. At that time, he u nderwent a laparoscopic sigmoid colectomy. He did well and a reverse on 06/27/2017 of this year. Ho wever, he continued to remain weak with decreased appetite and passing dark stools. He became short of breath and presented to the ER where he was found to have hemoglobin of 5.6 and a chest x-ray reve als cardiomegaly and pulmonary edema. He was given a total of 3 units of blood. HOSPITAL COURSE: He was started on IV Protonix 40 b.i.d. and underwent an EGD by Dr. Salinas, which winslow s not find any obvious bleeding sources. He was diuresed. He also received iron infusion, which his hemoglobin went up from 8.1 to 8.3. He will be discharged on the medication. He will receive addit ional IV iron infusions on outpatient basis. He will follow up with Dr. Gregory, Dr. Carey and Dr. Tonya owusu. He does remain in atrial fibrillation, rate controlled. His lungs are relatively clear.
[2017-10-05] MEDS: Ferrous Sulfate 325 MG TAB PO SCH (09:32)
[2017-10-05] MEDS: Pantoprazole 40 MG VIAL IVP SCH (09:32)
[2017-10-05 12:16] VITALS: BP 119/69; TEMP 98.8
--- NOTE | 2017-10-05 15:06 | PQF ---
CLINICAL DOCUMENTATION IMPROVEMENT CLARIFICATION FORM: ICD-10 Updated PLEASE DO AN ADDENDUM TO THE PROGRESS NOTE WITH ANY DOCUMENTATION UPDATES OR ADDITIONS AND CARRY THROUGH TO DC SUMMARY. THANK YOU. DATE: 10/05/17 ATTN: Dr. Schmidt Please exercise your independent, professional judgment in responding to the clarification form. Clinical indicators are provided on the bottom of this form for your review Please check appropriate box(s): HEART FAILURE: A. ACUITY [ ] Acute [ ] Acute on Chronic [ ] Chronic [ ] Other diagnosis [ ] Unable to determine In addition, please specify: Present on Admission (POA): [ ] Yes [ ] No [ ] Unable to determine For continuity of documentation, please document condition throughout progress notes and discharge summary. Thank You. CLINICAL INDICATORS - SIGNS / SYMPTOMS / LABS H&P: CHEST X-RAY W/ CARDIOMEGALY & BILATERAL PLEURAL EFFUSIONS W/ PULM EDEMA. PN 10/03: CHF, SECONDARY TO HIS ANEMIA, IMPROVING. CARDIOLOGY PN 10/04: DIASTOLIC HF- BNP > 1550 ON ADMISSION, SCATTERED RALES T/O, TRACE BLE EDEMA. ADDITIONAL DOSE FUROSEMIDE 40 MG IVP NOW, THEN 20 MG PO BID RISKS: H&P: CHF. SEVERE ANEMIA. CHRONIC A FIB. HYPERTENSION. TREATMENT: TELEMETRY CPOE 10/04: LASIX 40 MG SLOW IVP CPOE 10/04: LASIX 20 MG PO 0900, 1400 Thank you, Tabatha (This form is maintained as a part of the permanent medical record) 2015 [employer]. All Rights Reserved Tabatha Rhodes RN, BSN [email or web address] Office: [phone] [facility]
== END 2017-10-05 12:16 | disposition home or self-care (01) | DRG 377 ==
LOC: ERS 14:15 → 2NO 16:10
PROVIDERS: ADMIT Family Medicine; ATTEND Family Medicine
PROC: 30233N1 Transfusion of Nonautologous Red Blood Cells into Peripheral Vein, Percutaneous Approach (ICD-10-PCS; 2017-10-01)
PROC: 0DJ08ZZ Inspection of Upper Intestinal Tract, Via Natural or Artificial Opening Endoscopic (ICD-10-PCS; principal; 2017-10-03)
DX: K55.21 Angiodysplasia of colon with hemorrhage (principal); I50.33 Acute on chronic diastolic (congestive) heart failure; I11.0 Hypertensive heart disease with heart failure; D50.9 Iron deficiency anemia, unspecified; E87.6 Hypokalemia; I48.2 Chronic atrial fibrillation; E78.5 Hyperlipidemia, unspecified; E11.9 Type 2 diabetes mellitus without complications; Z87.891 Personal history of nicotine dependence; Z88.8 Allergy status to other drugs, medicaments and biological substances; Z79.82 Long term (current) use of aspirin; Z79.899 Other long term (current) drug therapy; Z90.49 Acquired absence of other specified parts of digestive tract
CPT/HCPCS: 36415; 36430; 71045; 71046; 80048; 80053; 80162; 82274; 82553; 83605; 83690; 83880; 84484; 85025; 85060; 85610; 85730; 86850; 86900; 86901; 93005; 93010; 93798; 94760; 96374; A4216; C9113; J1940; J2704; J2916; J3010; J7050; P9016

== ENCOUNTER 2017-10-13 01:46 | Inpatient (IN) | payer MEDICARE ==
[2017-10-13 02:30] LABS: #Monocytes 0.4 thou/uL (0.11-0.59); #Neutrophils 3.5 thou/uL (1.40-6.50); %Basophils 0.9 % (0.0-1.0); %Eosinophils 0.8 % (0.0-10.0); %Lymphocytes 20.5 % (21.0-51.0); %Monocytes 7.8 % (0.0-10.0); Hemoglobin 7.2 g/dL (14.0-18.0); Mean Corpuscular HGB CONC 33.7 g/dL (32.0-36.0); Mean Corpuscular Hemoglobin 33.5 pg (27.0-31.0); Mean Corpuscular Volume 99.5 fl (80.0-94.0); Mean Platelet Volume 7.8 fL (7.4-10.4); Platelet Count 194 thou/uL (130-400); RBC Distribution Width 16.3 % (11.5-14.5); Red Blood Cell (RBC) Count 2.15 mill/uL (4.70-6.10)
[2017-10-13 02:36] LABS: INR-International Normal Ratio 1.4; PTT 37.2 SEC (22.9-36.1); Prothrombin Time 17.2 SEC (12.0-14.7)
[2017-10-13 02:50] LABS: ALT (SGPT) 15 U/L (8-55); AST (SGOT) 30 U/L (5-34); Albumin 2.5 g/dL (3.4-4.8); Alkaline Phosphatase 111 U/L (40-150); Anion Gap 16 mmol/L (10-20); BUN (Urea Nitrogen) 26 mg/dL (8.4-25.7); Bilirubin, Total 0.7 mg/dL (0.2-1.2); Calc. Creatinine Clearance 0 mL/min (70-130); Carbon Dioxide 28 mmol/L (23-31); Chloride 102 mmol/L (98-107); Estimated GFR-MDRD 41; Globulin 6.1 g/dL (2.4-3.5); Glucose 149 mg/dL (83-110); Protein, Total 8.6 g/dL (5.8-8.1); Sodium 142 mmol/L (136-145)
[2017-10-13] MEDS ORDERED: Sodium Chloride 0.9% 1,000 ML IV SCH (04:45)
[2017-10-13] MEDS ORDERED: Ondansetron HCl/PF 4 MG/2 ML Vial IVP PRN (04:45)
[2017-10-13] MEDS ORDERED: Ondansetron ODT 4 MG TAB SL PRN (04:45)
[2017-10-13 05:30] VITALS: BMI 23.5
[2017-10-13] MEDS ORDERED: Acetaminophen 325 MG TAB PO PRN (07:41)
[2017-10-13] MEDS ORDERED: traMADol HCl 50 MG TAB PO PRN (07:43)
[2017-10-13] MEDS ORDERED: Glimepiride 2 MG TAB PO PRN (07:43)
[2017-10-13] MEDS ORDERED: Dextrose 50% Abboject 50 ML SYRINGE SLOW IVP PRN (07:50)
[2017-10-13] MEDS ORDERED: Dextrose 5% in Water 1,000 ML IV PRN (07:50)
[2017-10-13] MEDS ORDERED: Furosemide 40 MG/4 ML VIAL SLOW IVP SCH (08:15)
--- NOTE | 2017-10-13 08:19 | HP ---
ADMITTING PHYSICIAN: Kevin Carey M.D. HISTORY OF PRESENT ILLNESS: The patient is a 77-year-old male who presented to the emergency room co mplaining of lower rectal bleeding. The patient noted bright red blood per rectum this morning. He had a recent history of previous GI bleed. He was admitted approximately 10 days ago. During that a dmission, it was found that he had no definable source of bleeding. He was found to be anemic. This time he is now noting bright red blood per rectum. He was seen and evaluated in the emergency room, begun on emergent transfusions, he has already recei amanda 1 unit of blood. He denies any fever, chest pain, shortness of breath. There has been some naus ea and vomiting and some diarrhea reported. He does not note any other pain or discomfort. He is st atus post laparoscopic sigmoid colectomy. He does have a previous history of multiple GI bleeds. Th is is probably secondary to multiple AV malformations. During his most recent hospitalization he did undergo EGD. He has not undergone colonoscopy. He notes there is a history of atherosclerotic coronary artery disease, atrial fibrillation, hyperten ruba, congestive heart failure. He also has a history of COPD. Otherwise, no other medical complain ts are noted. ALLERGIES: He has been on COUMADIN and XARELTO in the past which has caused GI bleeding. CURRENT MEDICATIONS: Have been reviewed and are noted in the chart. PAST MEDICAL HISTORY: Positive for hypertension, hyperlipidemia, type 2 diabetes mellitus, chronic a trial fibrillation. PAST SURGICAL HISTORY: Positive for abdominal aneurysm repair, laparoscopic sigmoid colectomy with i leostomy reversal in 2017 and 2018, multiple cardiac ablations. SOCIAL/PERSONAL HISTORY: He does not smoke. He drinks alcohol occasionally. He is retired. He is . REVIEW OF SYSTEMS: Positive for nausea, vomiting otherwise review of systems are otherwise negative. PHYSICAL EXAMINATION: VITAL SIGNS: Temperature 98.3, pulse 90 and regular, BP 105/44. GENERAL: He is alert, active, in no distress. HEENT: Normocephalic, atraumatic. Extraocular muscles intact. Conjunctivae clear. Throat clear. NECK: Supple, full range of motion, no masses. HEART: Reveals an irregular rhythm without murmur, gallops or rubs. LUNGS: Clear. ABDOMEN: Soft, nontender, bowel sounds are present and active. No hepatosplenomegaly. EXTREMITIES: No clubbing, edema or cyanosis. LABORATORY DATA: Hemoglobin 7.2, hematocrit 21.3. This is an initial hemoglobin and hematocrit. PT /INR within normal limits. Chemistry: Sodium 142, potassium 4.0, chloride 102, CO2 28, BUN 26, crea tinine 1.6, glucose 149. Liver profile otherwise within normal limits. IMPRESSION: This is a 77-year-old male who has a recurrent gastrointestinal bleed, possibly related to his colonic issues probably related to more of his arteriovenous malformations, did not see this e vidence of upper gastrointestinal bleed. PLAN: The patient has been admitted to the Intermediate Care Unit. We will consult GI as well as Pu lmonary for further treatment recommendations. He is currently receiving his second unit of blood. We will monitor his hemoglobin and hematocrit through the day. Continue home medications except hold all aspirin containing products at this time. I have discussed the situation with his and the patient at the bedside. Anticipate the need for possible colonoscopy.
[2017-10-13] MEDS: Lactinex Tablet PO SCH (08:50)
[2017-10-13] MEDS: Potassium Chloride 10 MEQ TAB PO SCH (08:50)
[2017-10-13] MEDS: Ferrous Sulfate 325 MG TAB PO SCH ×2 (08:51→18:09)
--- NOTE | 2017-10-13 08:52 | PRG ---
DATE OF SERVICE: 10/13/2017 SUBJECTIVE: Mr. Casillas was readmitted to the hospital with gastrointestinal bleeding, probably i n the lower gastrointestinal. He had weakness and fatigue, as his symptoms. His hemoglobin was down to 7.2, it has been 8.3 when he left a week ago. He was also hypotensive. He feels better now. He is getting a second unit of packed red blood cells. OBJECTIVE: . VITAL SIGNS: Blood pressure was in the low 90s earlier, now it is 105/44. LUNGS: Clear. CARDIAC: Irregularly, irregular. ABDOMEN: Soft, nontender. EXTREMITIES: No edema. ASSESSMENT: 1. Recurrent gastrointestinal bleeding 2. History of atrial fibrillation. 3. Successful Watchman placement. PLAN: 1. We would stop aspirin. 2. Diastolic heart failure, we would give him furosemide 40 mg IV after a second unit of packed red blood cells.
[2017-10-13] MEDS ORDERED: LACTOBACILLUS COMBO NO 10 PO SCH (09:00)
[2017-10-13 12:12] LABS: Hemoglobin 8.3 g/dL (14.0-18.0)
[2017-10-13] MEDS: Ubidecarenone 50 MG CAP PO SCH (20:19)
[2017-10-13] MEDS: Magnesium Oxide 400 MG TAB PO SCH (20:19)
[2017-10-13] MEDS ORDERED: Ubidecarenone 50 MG CAP PO SCH (21:00)
[2017-10-13] MEDS ORDERED: MAGNESIUM 400 MG PO SCH (21:00)
[2017-10-14 05:39] LABS: #Lymphocytes 0.5 thou/uL (1.20-3.40); #Monocytes 0.5 thou/uL (0.11-0.59); #Neutrophils 4.5 thou/uL (1.40-6.50); %Basophils 0.3 % (0.0-1.0); %Eosinophils 0.8 % (0.0-10.0); %Lymphocytes 9.7 % (21.0-51.0); %Monocytes 8.8 % (0.0-10.0); %Neutrophils 80.5 % (42.0-75.0); Hemoglobin 6.9 g/dL (14.0-18.0); Mean Corpuscular HGB CONC 32.1 g/dL (32.0-36.0); Mean Corpuscular Hemoglobin 30.4 pg (27.0-31.0); Mean Corpuscular Volume 94.6 fl (80.0-94.0); Mean Platelet Volume 7.9 fL (7.4-10.4); Platelet Count 143 thou/uL (130-400); RBC Distribution Width 15.7 % (11.5-14.5); Red Blood Cell (RBC) Count 2.27 mill/uL (4.70-6.10); White Blood Cell (WBC) Count 5.6 thou/uL (4.8-10.8)
[2017-10-14 05:55] LABS: Anion Gap 12 mmol/L (10-20); BUN (Urea Nitrogen) 30 mg/dL (8.4-25.7); Calc. Creatinine Clearance 46 mL/min (70-130); Carbon Dioxide 27 mmol/L (23-31); Chloride 104 mmol/L (98-107); Estimated GFR-MDRD 52; Glucose 81 mg/dL (83-110); Potassium 3.9 mmol/L (3.5-5.1); Sodium 139 mmol/L (136-145)
[2017-10-14] MEDS ORDERED: Furosemide 40 MG TAB PO SCH (07:30)
--- NOTE | 2017-10-14 08:11 | PRG ---
DATE OF SERVICE: 10/14/2017 Mr. Casillas is resting comfortably. He is awake and alert, feels well. PHYSICAL EXAMINATION: VITAL SIGNS: Blood pressure 110/58, pulse is 90, it is irregular. He has atrial fibrillation. LUNGS: Clear. CARDIAC: Irregular. . ABDOMEN: Soft, nontender. EXTREMITIES: No edema. ASSESSMENT: 1. Gastrointestinal bleeding, stable. 2. Chronic atrial fibrillation. PLAN: 1. He has been taken off all anticoagulation including aspirin. 2. He may need another unit of packed red blood cells. Hemoglobin is still 6.9. No other changes at this time.
[2017-10-14] MEDS: Lactinex Tablet PO SCH (08:22)
[2017-10-14] MEDS: Ferrous Sulfate 325 MG TAB PO SCH (08:22)
[2017-10-14] MEDS: Potassium Chloride 10 MEQ TAB PO SCH (08:22)
[2017-10-14] MEDS: Furosemide 20 MG TAB PO SCH (08:22)
[2017-10-14] MEDS ORDERED: GoLYTELY 4,000 ml Bottle PO SCH (09:15)
--- NOTE | 2017-10-14 09:34 | CON ---
DATE OF CONSULTATION: 10/13/2017 HISTORY OF PRESENT ILLNESS: A 77-year-old gentleman who has seen Dr. Wang in the past. Sees Dr. Tonya owusu on a regular basis, admitted with recurrent GI bleed. He apparently had atrial fibrillation and successful Watchman placement. His son is at the bedside, he tells me that the patient was just mos t recently discharged from the hospital with a similar problem on 10/05/2017. Discharged with diagno ses of diastolic dysfunction, hypokalemia, GI bleed, chronic atrial fibrillation and hyperlipidemia. The patient is denying any difficulty breathing at this time or any chest pain. PAST MEDICAL HISTORY: Pertinent for recurrent GI bleed, hypertension, chronic atrial fibrillation an d diabetes. PAST SURGICAL HISTORY: Abdominal aortic aneurysm repair requiring hospitalization, laparoscopic sigm oid colectomy, ileostomy, multiple ablation. SOCIAL HISTORY: Non-smoker, occasional drinker. MEDICATIONS: List of medicines from home include tramadol 50, CQ1, potassium 10, Protonix 40, magnes ium 400, Amaryl 2, Lasix 20, iron, Cardizem-CD 180, digoxin 0.25, aspirin 81. SOCIAL HISTORY: Unremarkable. ALLERGIES: None. REVIEW OF SYSTEMS: 10-point negative. PHYSICAL EXAMINATION: GENERAL: Awake, alert, responsive, no distress. VITAL SIGNS: Blood pressure is 112/46, temperature 98 degrees, sats 100% on 2 liters, pulse 102. CHEST: Reveals no wheezing or crackles. CARDIAC: Normal S1, S2, no gallops. ABDOMEN: Soft. EXTREMITIES: No edema. NEUROLOGIC: Awake, alert, responsive. LABORATORY AND X-RAY FINDINGS: H&H is stable 8 and 25. He received a unit of packed cells. INR is 1.4, creatinine 1.6, BUN of 26. Albumin is 2.5. Calcium is 11.5. IMPRESSION: 1. Recurrent gastrointestinal bleed, lower. 2. Azotemia. 3. Advanced age. 4. Chronic atrial fibrillation. 5. Diabetes. PLAN: Pulmonary Critical Care will follow while in the [facility]. Await input from Cardiology. We will follow. This consultation note, 70 minutes, 50% in direct patient's care.
--- NOTE | 2017-10-14 09:43 | PRG ---
DATE OF SERVICE: 10/14/2017 He is still having GI bleed. He is scheduled for a colonoscopy today. PHYSICAL EXAMINATION: VITAL SIGNS: Temperature is 98, pulse 102, respirations 19, sats 96%, blood pressure is 118/58. CHEST: Chest revealed no wheezing or crackles. CARDIAC: Normal S1, S2, no gallops. ABDOMEN: Soft, no masses. LABORATORY DATA: Creatinine 1.32, H&H 6.9 and 21. IMPRESSION: 1. Lower gastrointestinal bleed. 2. Renal failure. 3. Congestive heart failure. PLAN: Colonoscopy today. Disposition as per primary care physician. Pulmonary will follow while in the IM.
[2017-10-14] MEDS ORDERED: Ondansetron HCl/PF 4 MG/2 ML Vial SLOW IVP PRN (11:23)
[2017-10-14] MEDS ORDERED: Furosemide 40 MG/4 ML VIAL SLOW IVP SCH (13:45)
--- NOTE | 2017-10-14 14:20 | PRG ---
DATE OF SERVICE: 10/14/2017 SUBJECTIVE: Mr. Casillas is undergoing his prep. He will be undergoing colonoscopy today. He is feeling okay. OBJECTIVE: VITAL SIGNS: BP 148/90, pulse 114 and irregular. LUNGS: Clear. HEART: Reveals an irregularly irregular rhythm without murmur, gallops, or rubs. LABORATORY DATA: Hemoglobin 6.9, hematocrit 21.5. Chemistry panel is, otherwise, normal. IMPRESSION: Gastrointestinal bleed, probably lower gastrointestinal bleed. PLAN: He has been typed and crossed and we have started to give 2 more units today. He will undergo colonoscopy. Further treatment recommendations will be on the colonoscopy findings.
[2017-10-14] MEDS ORDERED: Lidocaine 1% PF 5 ML VIAL ONE (15:00)
[2017-10-14] MEDS ORDERED: PROPOFOL 200 MG/20 ML VIAL ONE (15:00)
[2017-10-14 18:43] LABS: Hemoglobin 8.8 g/dL (14.0-18.0)
--- NOTE | 2017-10-14 19:33 | CON ---
DATE OF CONSULTATION: 10/14/2017 REASON FOR CONSULTATION: GI hemorrhage. HISTORY OF PRESENT ILLNESS: Mr. Casillas came in on 10/13/2017 at 07:50 in the morning with GI ble eding apparently started about 01:00 that morning. The family notes it was bright red. Consult was called to our office this morning by the nursing staff on the floor. He has had some problems with a nemia and had an upper endoscopy for iron-deficiency anemia without bleeding last month on 10/03. Ul filemon on that admission, he was transfused for presenting with a hemoglobin of 5.6. He had 3 unit s of blood at that time. He has also been transfused in 02/2017, 05/2016, 07/2014 and 04/2014. Viji marina is a prior history of cecal AV malformations and also previous colon polyps. For a long time, he s truggled partial obstruction secondary to stricture in sigmoid colon from diverticular disease. 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 Presently, the patient is pretty anxious about the bleeding. He received some blood yest erday and despite this, his blood count dropped further today. The anywhere from very bright r ed to maroon in nature. He denies any associated abdominal pain. PAST MEDICAL HISTORY: Atherosclerotic coronary artery disease, atrial fibrillation, hypertension, co ngestive heart failure, COPD, type 2 diabetes, chronic atrial fibrillation. PAST SURGICAL HISTORY: Abdominal aneurysm repair in the past, laparoscopic sigmoid colon resection, ileostomy reversal in 2016 and 2017, multiple cardiac ablations. SOCIAL HISTORY: The patient does not smoke. He drinks very rarely. MEDICATIONS: Tylenol, Floranex, vitamin D, CoQ, iron, Cardizem, Lasix, Amaryl, glucagon, Protonix. HOME MEDICATIONS: Ultram, CoQ10, Klor-Con, Protonix, magnesium, lactobacillus, glyburide, Lasix, iro n, Cardizem, Lanoxin, aspirin. PHYSICAL EXAMINATION: GENERAL: The patient is resting comfortably in bed. He is in no apparent distress HEENT: Conjunctivae are pale. Sclerae are clear. VITAL SIGNS: Temperature is 98, pulse 114, blood pressure 112/53. LUNGS: Clear. CARDIOVASCULAR: Heart regular without clicks or murmurs. ABDOMEN: Soft, nontender. LABORATORY DATA: White count was 5.6, hemoglobin 6.9, platelet count 143,000. His hemoglobin was 7. 2 yesterday and came to 8.3 after 2 units of blood. Today, he has been transfused since a hemoglobin of 6 this morning. Chemistries: BUN and creatinine are 30 and 1.32. Electrolytes are normal. Alb umin 2.5. Liver function tests were normal. INR is 1.4. ASSESSMENT: Gastrointestinal bleed, likely lower, it is likely from previous arteriovenous malformat ions, diverticular disease, he has a surgical anastomosis as well and this could be contributing. Al ternatively, he has a previous history of aneurysm repair. There is always a concern that could be i nvolved. We will proceed with endoscopy. Transfusions are ordered to the nursing staff early this m orning. We will proceed along those lines.
[2017-10-14] MEDS: Magnesium Oxide 400 MG TAB PO SCH (20:34)
[2017-10-14] MEDS: Ubidecarenone 50 MG CAP PO SCH (20:34)
--- NOTE | 2017-10-14 21:09 | OP ---
PREOPERATIVE DIAGNOSES: 1. Lower gastrointestinal bleeding. 2. History of chronic anemia. 3. History of recent EGD that was normal last week. 4. 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 5. History of recent sigmoid resection in late last year for obstructive diverticular disease with a nastomosis. POSTOPERATIVE DIAGNOSES: 1. Clear yellow bile coming from the terminal ileum. 2. Diverticulosis throughout the entire colon with old brown and green stool consistent with history of iron supplementation. 3. 7 arteriovenous malformations up to 1 cm or 2 cm in size in the right colon with no active bleedi ng. No intervention performed secondary to high risk for perforation in this area. 4. Ulcers at the anastomosis, likely the source of recent bleeding. No stigmata to indicate high ri sk for re-bleeding. 5. Diverticulosis, possible source of bleeding. RECOMMENDATIONS: 1. Bowel regimen to keep the stool soft. 2. Avoid anticoagulation and aspirin at this time. 3. Advance diet slowly. 4. We will give a dose of IV iron tomorrow depending on response to transfusion today. 5. If the patient rebleeds, tagged red bleeding scan. Consider CT angio as the patient has had repa ir of aortic aneurysm in the past. This being the fact to rule out an aortoenteric fistula. ANESTHESIA: TIVA. PROCEDURE IN DETAIL: After the patient was informed of the risks, benefits, and possible complicatio ns of endoscopy including perforation, bleeding, reaction to medication, aspiration informed consent was obtained. The patient was brought to endoscopy suite, where he was sedated in gradual fashion. Once he is comfortable, rectal exam was performed. The endoscope was advanced through the anal canal to the colon and cecum, which was identified by ileocecal valve and appendiceal orifice. Terminal i leum was entered and found to be normal with yellow bile coming down from above with no signs of blee ding from above. The colon had diffuse diverticular disease. There was a lot of old stool in the co joon, which was brown, especially in the right colon, brown to green. There was no active bleeding. There was no fresh red blood that has been noticed by the patient and family days prior to admission. The remainder of the colon was fine. There were no signs of overt diverticular hemorrhage, althoug h this is possibly what happened. There were several small erosions at the sigmoid anastomosis with no clot or visible vessel, but this is probably more likely source of bleeding. Retroflexed views we re normal in the rectum. Scope was removed. The patient tolerated the procedure well. No complicat ions.
[2017-10-15 04:26] LABS: #Lymphocytes 0.5 thou/uL (1.20-3.40); #Monocytes 0.4 thou/uL (0.11-0.59); #Neutrophils 4.6 thou/uL (1.40-6.50); %Basophils 0.3 % (0.0-1.0); %Eosinophils 0.2 % (0.0-10.0); %Lymphocytes 9.5 % (21.0-51.0); %Monocytes 7.5 % (0.0-10.0); %Neutrophils 82.4 % (42.0-75.0); Hemoglobin 8.3 g/dL (14.0-18.0); Mean Corpuscular HGB CONC 31.5 g/dL (32.0-36.0); Mean Corpuscular Hemoglobin 29.6 pg (27.0-31.0); Mean Corpuscular Volume 93.8 fl (80.0-94.0); Mean Platelet Volume 7.9 fL (7.4-10.4); Platelet Count 143 thou/uL (130-400); RBC Distribution Width 15.1 % (11.5-14.5); White Blood Cell (WBC) Count 5.6 thou/uL (4.8-10.8)
[2017-10-15 04:46] LABS: Anion Gap 13 mmol/L (10-20); BUN (Urea Nitrogen) 23 mg/dL (8.4-25.7); Calc. Creatinine Clearance 46 mL/min (70-130); Carbon Dioxide 30 mmol/L (23-31); Chloride 101 mmol/L (98-107); Estimated GFR-MDRD 51; Glucose 73 mg/dL (83-110); Potassium 3.3 mmol/L (3.5-5.1); Sodium 141 mmol/L (136-145)
--- NOTE | 2017-10-15 07:46 | PRG ---
DATE OF SERVICE: 10/15/2017 Mr. Casillas is awake and alert. He underwent a colonoscopy yesterday. It did not show any active bleeding of any sites. There was no ability to do any interventions for his bleeding at this time. He is feeling better this morning. He wishes to advance his diet. He is tolerating all p.o. intake well. PHYSICAL EXAMINATION: VITAL SIGNS: Blood pressure 104/44, pulse 70 and regular. LUNGS: Clear. HEART: Reveals no murmur, regular rate and rhythm. ABDOMEN: Soft, nontender, bowel sounds are present and active. LABORATORY: His hemoglobin is 8.3, hematocrit 26.2. Chemistry profile is otherwise unremarkable. P otassium a little bit low at 3.3. IMPRESSION: Lower gastrointestinal bleed, now stable. PLAN: The patient possibly could be discharged tomorrow on his routine medicines except for aspirin. Dr. Gregory has recommended IV iron. I will ask him to order this today. I have given the patient' s further discharge instructions already, anticipate discharge tomorrow. We will check another blood count in a.m.
--- NOTE | 2017-10-15 08:47 | PRG ---
DATE OF SERVICE: 10/15/2017 HISTORY: Mr. Casillas is sitting up in the chair, he feels much better. PHYSICAL EXAMINATION: VITAL SIGNS: Blood pressure 102/42, pulse 90, it is irregular. LUNGS: Clear. CARDIAC: Irregular, irregular. ABDOMEN: Soft, nontender. EXTREMITIES: No edema. PERTINENT LABORATORY DATA: Hemoglobin is 8.3, stable. ASSESSMENT: 1. Chronic atrial fibrillation, rate controlled. 2. Recurrent gastrointestinal bleeding. 3. Mildly hypokalemic after diuretic dose yesterday, potassium 3.3. PLAN: 1. Give him 1 extra dose of potassium. 2. Stay off of all anticoagulants and all antiplatelet drugs. 3. He is on Cardizem. 4. Low-dose furosemide. 5. Extra potassium today, then back to maintenance dose. 6. We will sign off. Please reconsult us if needed.
[2017-10-15] MEDS: Lactinex Tablet PO SCH (08:48)
[2017-10-15] MEDS: Potassium Chloride 10 MEQ TAB PO SCH (08:48)
[2017-10-15] MEDS: Furosemide 20 MG TAB PO SCH (08:48)
[2017-10-15] MEDS ORDERED: Potassium Chloride 20 MEQ TAB PO SCH (12:00)
--- NOTE | 2017-10-15 21:27 | PRG ---
DATE OF SERVICE: 10/15/2017 SUBJECTIVE: Mr. Casillas has had no further bloody bowel movements. He is tolerating regular diet. OBJECTIVE: VITAL SIGNS: Temperature is 97, pulse 85, blood pressure 105/50. ABDOMEN: Soft, nontender. LABORATORY STUDIES: Hemoglobin is 8.3 and stable, white count 5.6, platelet count 143. Basic metabolic profile normal except for potassium of 3.3. ASSESSMENT: Lower gastrointestinal bleeding, recurrent, likely diverticular and there is small ulcer and the anastomosis. 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 There were large. They were nonbleeding and due to the high risk of perforation with cautery no intervention was performed. RECOMMENDATIONS: Hold aspirin for a week, at least longer if okay with Cardiology. If the patient has no further bleeding,he can go to rehab or home tomorrow. We will repeat a hemoglobin in a week or two if he is not a building up we can give a dose of IV iron in the outpatient setting. MTDD
[2017-10-15] MEDS: Magnesium Oxide 400 MG TAB PO SCH (21:30)
[2017-10-15] MEDS: Ubidecarenone 50 MG CAP PO SCH (21:30)
[2017-10-16 04:34] LABS: #Lymphocytes 0.4 thou/uL (1.20-3.40); #Monocytes 0.4 thou/uL (0.11-0.59); #Neutrophils 4.6 thou/uL (1.40-6.50); %Eosinophils 0.6 % (0.0-10.0); %Lymphocytes 7.1 % (21.0-51.0); %Neutrophils 84.3 % (42.0-75.0); Hemoglobin 7.9 g/dL (14.0-18.0); Mean Corpuscular HGB CONC 31.9 g/dL (32.0-36.0); Mean Corpuscular Hemoglobin 30.5 pg (27.0-31.0); Mean Corpuscular Volume 95.6 fl (80.0-94.0); Mean Platelet Volume 7.8 fL (7.4-10.4); Platelet Count 132 thou/uL (130-400); Red Blood Cell (RBC) Count 2.59 mill/uL (4.70-6.10); White Blood Cell (WBC) Count 5.5 thou/uL (4.8-10.8)
[2017-10-16 05:07] LABS: Anion Gap 12 mmol/L (10-20); BUN (Urea Nitrogen) 21 mg/dL (8.4-25.7); Calc. Creatinine Clearance 46 mL/min (70-130); Carbon Dioxide 28 mmol/L (23-31); Chloride 101 mmol/L (98-107); Estimated GFR-MDRD 52; Glucose 82 mg/dL (83-110); Sodium 137 mmol/L (136-145)
[2017-10-16] MEDS: Furosemide 20 MG TAB PO SCH (09:12)
[2017-10-16] MEDS: Lactinex Tablet PO SCH (09:13)
[2017-10-16] MEDS: Potassium Chloride 10 MEQ TAB PO SCH (09:13)
[2017-10-16 12:13] VITALS: TEMP 99.1
[2017-10-16 12:39] VITALS: BP 108/47
--- NOTE | 2017-10-16 15:20 | PRG ---
DATE OF SERVICE: 10/16/2017 SUBJECTIVE: Mr. Casillas has had no further bleeding overnight. He is tolerating a regular diet. He states he is cold. He has had no chills or fever. OBJECTIVE: GENERAL: The patient is frail. Skin is warm to touch. It is not clammy. VITAL SIGNS: Pulse 94, temperature 99.1, blood pressure 119/61. LUNGS: Clear. HEART: Regular rate and rhythm. ABDOMEN: Nontender. LABORATORY STUDIES: White count 5.5, hemoglobin 7.9, platelet count 132, BUN and creatinine are 21 a nd 1.3. ASSESSMENT: Recurrent gastrointestinal bleeding, possibly related to a small anastomotic ulcer, poss ibly related to diverticular disease. He does have a history of atrioventricular malformations, alth ough he did not appear to be bleeding endoscopy. He did have upper endoscopy last admission wi th no signs of bleeding. For now, Dr. Saba stopped his aspirin. RECOMMENDATIONS: 1. He can resume his oral iron. 2. H and H sometime next week. I will talk with Dr. Carey about arranging this as the patient is go ing to rehabilitation. 3. I have talked with the patient's and the nurse about discharging him on some fiber daily and also if needed a stool softener, Colace. I have recommended to take iron with meals to improve abso rption. He is being discharged today. by his primary physician, follow back in the office in a few weeks.
--- NOTE | 2017-10-21 13:17 | PQF ---
MARCO SCANLON RICHARD A MD [id number] CU- [id number] DATE: 10/21/17 ATTN: Dr. Carey Please exercise your independent, professional judgment in responding to the clarification form. Clinical indicators are provided on the bottom of this form for your review Please check appropriate box(s): [ ] Acute blood loss anemia [ ] Chronic Anemia: [ ] Blood loss [ ] Other (please specify) [ ] Anemia of Chronic Disease (please specify) [ ] Other diagnosis (please specify) + [ ] Unable to determine In addition, please specify: Present on Admission (POA): [ ] Yes [ ] No [ ] Unable to determine For continuity of documentation, please document condition throughout progress notes and discharge summary. Thank You. CLINICAL INDICATORS - SIGNS / SYMPTOMS / LABS (per H&P/progress notes) Bright red blood per rectum this morning. Anemia H/H of 7.2/21.3 respectively on admission. Worsening of H/H during admission. RISK FACTORS (per colonoscopy report) Multiple AV malformations in right colon. . Diverticulosis. Anastomotic ulcer. TREATMENTS: (per transfusion/colonoscopy report) Transfusion of 4 units PRBC's. Colonoscopy 10/14. (This form is maintained as a part of the permanent medical record) 2014 [employer] All Rights Reserved Nissa [email or web address] [phone] MTDD
--- NOTE | 2017-10-21 13:37 | PQF ---
MARCO SCANLON RICHARD A MD [id number] [facility]- B09 [id number] CLINICAL DOCUMENTATION CLARIFICATION FORM: POST DISCHARGE DATE: 10/21/2017 ATTN: Dr. Carey Please exercise your independent, professional judgment in responding to the clarification form. Clinical indicators are provided on the bottom of this form for your review Please check appropriate box(s): [ ] Acute Renal Failure (ARF) / Acute Kidney Injury (DELROY) [ ] Acute on Chronic Renal Failure please specify Stage of CKD (see below) [ ] CKD without ARF/DERLOY please specify Stage of CKD [ ] Other diagnosis (please specify) [ ] Unable to determine In addition, please specify: Present on Admission (POA): [ ] Yes [ ] No [ ] Unable to determine National Kidney Foundation Guidelines for CKD Staging Stage I Kidney damage with normal or increased GFRGFR > 90 Stage IIKidney damage with mildly decreased GFRGFR 60-89 Stage III Kidney damage with moderately decreased GFRGFR 30-59 Stage IVKidney damage with severely decreased GFRGFR 16-29 Stage VKidney failureGFR<15 ESRDEnd Stage Renal DiseaseOn dialysis Acute Renal Failure/Acute Kidney Failure defined as: Increases in SCr by (>) 0.3 mg/dl within 48 hours OR- Increases in SCr by (>) 1.5 times baseline, known or presumed to have occurred within the prior 7 days OR- Urine volume < 0.5 ml/kg/hour for 6 hours (KDIGO supplement 2012 for RIFLE/KEKE criteria) For continuity of documentation, please document condition throughout progress notes and discharge summary. Thank You. CLINICAL INDICATORS - SIGNS / SYMPTOMS / LABS Per labs: BUN/Cr level on 10/13 was 26/1.63 and on 10/14 of 30/1.32. Per Dr. Sanchez's progress note dated 10/14 : Renal failure. RISK FACTORS (per H&P/progress notes) Hypertension with chronic diastolic congestive heart failure. Hypokalemia. Recurrent gastrointestinal bleed. TREATMENTS: (per medications) IV fluids. Correction of hypokalemia. (This form is maintained as a part of the permanent medical record) 2014 [employer] All Rights Reserved Nissa [email or web address] [phone] MTDD
== END 2017-10-16 14:18 | DRG 378 ==
LOC: ERS 01:46 → IMCU/EMU 04:19
PROVIDERS: ADMIT Family Medicine; ATTEND Family Medicine
PROC: 30233N1 Transfusion of Nonautologous Red Blood Cells into Peripheral Vein, Percutaneous Approach (ICD-10-PCS; 2017-10-13)
PROC: 0DJD8ZZ Inspection of Lower Intestinal Tract, Via Natural or Artificial Opening Endoscopic (ICD-10-PCS; principal; 2017-10-14)
DX: K28.4 Chronic or unspecified gastrojejunal ulcer with hemorrhage (principal); I50.32 Chronic diastolic (congestive) heart failure; K57.31 Diverticulosis of large intestine without perforation or abscess with bleeding; I25.10 Atherosclerotic heart disease of native coronary artery without angina pectoris; I48.2 Chronic atrial fibrillation; I11.0 Hypertensive heart disease with heart failure; E11.9 Type 2 diabetes mellitus without complications; J44.9 Chronic obstructive pulmonary disease, unspecified; D64.9 Anemia, unspecified; E78.5 Hyperlipidemia, unspecified; K55.20 Angiodysplasia of colon without hemorrhage; E87.6 Hypokalemia; Z88.8 Allergy status to other drugs, medicaments and biological substances; Z79.84 Long term (current) use of oral hypoglycemic drugs; Z79.82 Long term (current) use of aspirin; Z79.899 Other long term (current) drug therapy; Z90.49 Acquired absence of other specified parts of digestive tract
CPT/HCPCS: 36415; 36416; 36430; 80048; 80053; 85025; 85610; 85730; 86850; 86900; 86901; 94760; 96360; G8978-GP-CL; G8979-GP-CJ; J2001; J2405; J2704; P9016

== ENCOUNTER 2017-10-26 17:32 | Inpatient (IN) | payer MEDICARE ==
[2017-10-26 18:19] LABS: #Lymphocytes 0.5 thou/uL (1.20-3.40); #Monocytes 0.3 thou/uL (0.11-0.59); #Neutrophils 2.3 thou/uL (1.40-6.50); %Basophils 0.3 % (0.0-1.0); %Eosinophils 0.3 % (0.0-10.0); %Lymphocytes 15.9 % (21.0-51.0); %Monocytes 9.6 % (0.0-10.0); %Neutrophils 73.9 % (42.0-75.0); Hemoglobin 8.4 g/dL (14.0-18.0); Mean Corpuscular HGB CONC 31.9 g/dL (32.0-36.0); Mean Corpuscular Hemoglobin 31.6 pg (27.0-31.0); Mean Corpuscular Volume 99.3 fL (78.0-98.0); Mean Platelet Volume 7.5 fL (7.4-10.4); Platelet Count 155 thou/uL (130-400); RBC Distribution Width 17.4 % (11.5-14.5); Red Blood Cell (RBC) Count 2.65 mill/uL (4.70-6.10); White Blood Cell (WBC) Count 3.1 thou/uL (4.8-10.8)
[2017-10-26 18:25] LABS: INR-International Normal Ratio 1.3; Prothrombin Time 16.6 SEC (12.0-14.7)
[2017-10-26 18:26] LABS: PTT 40.8 SEC (22.9-36.1)
--- NOTE | 2017-10-26 20:14 | RAD ---
RADIOGRAPH CHEST 1 VIEW: Date: 10/26/17 Time: 6:38 p.m. HISTORY: 77-year-old male with dyspnea and anemia. COMPARISON: 07/02/17 FINDINGS: Severe DJD of bilateral shoulders at the glenohumeral joints. The current study is lordotic in positi on, resulting in magnification of the cardiac shadow. Again noted is the calcified, ectatic, and tort uous thoracic aorta. Prominent interstitial markings diffusely, probably chronic. No consolidation, f rank pulmonary edema, pneumothorax, or effacement of lateral costophrenic angles. Allowing for positi onal and technical differences, probably no significant interval change. IMPRESSION: 1. No acute findings. 2. 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 3. Atherosclerosis, ectasia, and tortuosity of the thoracic aorta. ASHLEY [] POS: JOSH
[2017-10-26 20:47] LABS: Carbon Dioxide 29 mmol/L (23-31); Chloride 87 mmol/L (98-107); Potassium 3.3 mmol/L (3.5-5.1)
[2017-10-26 20:48] LABS: BUN (Urea Nitrogen) 19 mg/dL (8.4-25.7)
[2017-10-26 20:49] LABS: Calc. Creatinine Clearance 0 mL/min (70-130); Estimated GFR-MDRD 67
[2017-10-26 20:50] LABS: Calcium 6.3 mg/dL (7.8-10.44); Glucose 94 mg/dL (83-110)
[2017-10-26 20:51] LABS: Bilirubin, Total 0.4 mg/dL (0.2-1.2)
[2017-10-26 20:53] LABS: AST (SGOT) 18 U/L (5-34); Alkaline Phosphatase 109 U/L (40-150)
[2017-10-26 20:54] LABS: ALT (SGPT) 10 U/L (8-55)
[2017-10-26 20:57] LABS: Sodium 117 mmol/L (136-145)
[2017-10-26 20:58] LABS: Anion Gap 4 mmol/L (10-20)
[2017-10-26] MEDS ORDERED: Acetaminophen 325 MG TAB PO PRN (21:44)
[2017-10-26] MEDS ORDERED: Docusate 100 MG CAP PO PRN (21:44)
[2017-10-26] MEDS ORDERED: Glimepiride 2 MG TAB PO PRN ×2 (21:44)
[2017-10-26] MEDS ORDERED: Sodium Chloride 0.9% 1,000 ML IV SCH (22:00)
[2017-10-26 23:18] VITALS: BMI 23.3
[2017-10-27 01:02] LABS: Anion Gap 14 mmol/L (10-20); BUN (Urea Nitrogen) 17 mg/dL (8.4-25.7); Calc. Creatinine Clearance 49 mL/min (70-130); Calcium 11.1 mg/dL (7.8-10.44); Carbon Dioxide 27 mmol/L (23-31); Chloride 103 mmol/L (98-107); Estimated GFR-MDRD 56; Glucose 80 mg/dL (83-110); Potassium 3.7 mmol/L (3.5-5.1); Sodium 140 mmol/L (136-145)
[2017-10-27 04:28] LABS: Hemoglobin 8.2 g/dL (14.0-18.0)
[2017-10-27 04:47] LABS: ALT (SGPT) 12 U/L (8-55); AST (SGOT) 21 U/L (5-34); Alkaline Phosphatase 86 U/L (40-150); Anion Gap 12 mmol/L (10-20); BUN (Urea Nitrogen) 17 mg/dL (8.4-25.7); Bilirubin, Total 0.5 mg/dL (0.2-1.2); Calc. Creatinine Clearance 49 mL/min (70-130); Carbon Dioxide 30 mmol/L (23-31); Chloride 104 mmol/L (98-107); Estimated GFR-MDRD 56; Globulin 6.7 g/dL (2.4-3.5); Glucose 83 mg/dL (83-110); Potassium 3.8 mmol/L (3.5-5.1); Protein, Total 8.7 g/dL (5.8-8.1); Sodium 142 mmol/L (136-145)
[2017-10-27 05:53] LABS: Bilirubin Negative (Negative); Blood, Urine Negative (Negative); Clarity CLEAR (Clear); Glucose, Urine (Dipstick) Negative (Negative); Leukocyte Negative (Negative); Nitrite Negative (Negative); Protein, Urine (Dipstick) Negative (Neg-Trace); Specific Gravity, Urine 1.008 (1.002-1.036); pH, Urine 7.5 (5.0-9.0)
[2017-10-27 06:06] LABS: Osmolality, Urine 342 mOsm/kg (300-900)
[2017-10-27 06:10] LABS: Sodium, Urine 102 mmol/L (Not Available)
[2017-10-27] MEDS ORDERED: Furosemide 20 MG TAB PO SCH (07:30)
[2017-10-27] MEDS ORDERED: Ferrous Sulfate 325 MG TAB PO SCH (08:00)
[2017-10-27] MEDS ORDERED: LACTOBACILLUS COMBO NO 10 PO SCH (09:00)
[2017-10-27] MEDS ORDERED: Potassium Chloride 10 MEQ TAB PO SCH ×2 (09:00)
[2017-10-27] MEDS ORDERED: Lactinex Tablet PO SCH (09:00)
[2017-10-27] MEDS ORDERED: Digoxin 0.125 MG TAB PO SCH (09:00)
[2017-10-27] MEDS ORDERED: Metamucil PACK PO SCH (09:00)
--- NOTE | 2017-10-27 09:42 | SS ---
ADMITTING PHYSICIAN: Dr. Kevin Carey HISTORY OF PRESENT ILLNESS: The patient is a 77-year-old male who presented to the emergency room co mplaining of abnormal lab work. He received some lab tests yesterday which showed a drop in his hemo globin from 9.2-7.6. called the local GI office, he was directed to the emergency room. Upon e mergency room, he was found to have a hemoglobin of 8.4, was found to be hyponatremic. He does not n ote any nausea, vomiting, diarrhea, no fever. He has been a resident of [facility]. Otherwise, no medical complaints are noted. ALLERGIES: He is allergic to COUMADIN and XARELTO. CURRENT MEDICATIONS: Current medications are in the chart. PAST MEDICAL HISTORY: Hypertension, hyperlipidemia, type 2 diabetes mellitus, atrial fibrillation. PAST SURGICAL HISTORY: Positive for the abdominal aortic aneurysm repair, sigmoid colectomy and ileo stomy and ileostomy reversal, multiple cardiac ablations. SOCIAL/PERSONAL HISTORY: He does not smoke. He does not drink alcohol. He is currently residing [facility]. He does wish to be discharged from there. PHYSICAL EXAMINATION: VITAL SIGNS: Temperature 97.9, pulse 103, BP 111/54. GENERAL: He is alert, in no acute distress. HEENT: Normocephalic, atraumatic. Sclerae are clear. Throat clear. NECK: Supple, full range of motion, no masses. LUNGS: Clear. HEART: Reveals an irregular regular rhythm without murmur, gallops or rubs. ABDOMEN: Soft, nontender, bowel sounds active, no hepatosplenomegaly is noted. EXTREMITIES: No clubbing, edema or cyanosis otherwise noted. NEUROLOGIC: He is alert and oriented x3. LABORATORY: His hemoglobin is 8.2, hematocrit 24.6. Chemistry: Sodium 142, potassium 3.8, chloride 104, CO2 30, BUN 17, creatinine 1.24. Liver function tests are normal otherwise. IMPRESSION: 1. Transient hyponatremia of unknown etiology. 2. Mild anemia. PLAN: The patient will be continued to be observed, most likely he could be discharged later today. He wishes to be discharged home. I have notified case management of this. We will start making arr angements for further disposition to home.
[2017-10-27 11:18] VITALS: BP 104/52; TEMP 98.1
== END 2017-10-27 14:55 | disposition home or self-care (01) | DRG 641 ==
LOC: ERS 17:32 → T4-B 21:34
PROVIDERS: ADMIT Family Medicine; ATTEND Family Medicine
DX: E87.1 Hypo-osmolality and hyponatremia (principal); I10 Essential (primary) hypertension; E78.5 Hyperlipidemia, unspecified; E11.9 Type 2 diabetes mellitus without complications; I48.91 Unspecified atrial fibrillation; D64.9 Anemia, unspecified
CPT/HCPCS: 36415; 36416; 71045; 80048; 80053; 81003; 82274; 82570; 83935; 84300; 85014; 85018; 85025; 85610; 85730; 86850; 86900; 86901; 94760; A4216

== ENCOUNTER 2017-11-16 20:55 | Inpatient (IN) | payer MEDICARE ==
[2017-11-16 22:43] LABS: Hemoglobin 5.6 g/dL (14.0-18.0)
[2017-11-16 22:57] LABS: Digoxin Less than 0.15 ng/mL (0.8-2.0)
[2017-11-16 23:06] LABS: #Lymphocytes 0.4 thou/uL (1.20-3.40); #Monocytes 0.4 thou/uL (0.11-0.59); #Neutrophils 4.1 thou/uL (1.40-6.50); %Basophils 0.2 % (0.0-1.0); %Eosinophils 0.3 % (0.0-10.0); %Lymphocytes 7.3 % (21.0-51.0); %Monocytes 8.6 % (0.0-10.0); %Neutrophils 83.7 % (42.0-75.0); Mean Corpuscular HGB CONC 31.8 g/dL (32.0-36.0); Mean Corpuscular Hemoglobin 34.2 pg (27.0-31.0); Mean Platelet Volume 8.1 fL (7.4-10.4); PLT Morphology Comment Appears Decreased; Platelet Count 113 thou/uL (130-400); Red Blood Cell (RBC) Count 1.63 mill/uL (4.70-6.10); White Blood Cell (WBC) Count 4.9 thou/uL (4.8-10.8)
[2017-11-16] MEDS ORDERED: Pantoprazole 40 MG VIAL ONE (23:06)
[2017-11-17 00:06] LABS: Carbon Dioxide 25 mmol/L (23-31); Chloride 101 mmol/L (98-107); Sodium 136 mmol/L (136-145)
[2017-11-17 00:07] LABS: Albumin 2.4 g/dL (3.4-4.8); BUN (Urea Nitrogen) 23 mg/dL (8.4-25.7); Bilirubin, Total 0.4 mg/dL (0.2-1.2); Calc. Creatinine Clearance 0 mL/min (70-130); Calcium 7.7 mg/dL (7.8-10.44); Estimated GFR-MDRD 50; Globulin 0.8 g/dL (2.4-3.5); Glucose 109 mg/dL (83-110)
[2017-11-17 00:08] LABS: AST (SGOT) 19 U/L (5-34); Alkaline Phosphatase 108 U/L (40-150)
[2017-11-17 00:10] LABS: ALT (SGPT) Less than 7 U/L (8-55); Anion Gap 14 mmol/L (10-20)
[2017-11-17 00:34] LABS: Protein, Total 3.2 g/dL (5.8-8.1)
[2017-11-17 01:29] LABS: INR-International Normal Ratio 1.3; PTT 42.8 SEC (22.9-36.1); Prothrombin Time 16.6 SEC (12.0-14.7)
[2017-11-17 01:30] LABS: Iron 37 ug/dL (65-175)
[2017-11-17 01:46] LABS: Iron Binding Capacity, Total 197 mcg/dL (261-462)
[2017-11-17] MEDS ORDERED: Ondansetron HCl/PF 4 MG/2 ML Vial IVP PRN (02:06)
[2017-11-17] MEDS ORDERED: Sodium Chloride 0.9% 1,000 ML IV SCH (02:06)
[2017-11-17] MEDS ORDERED: Ondansetron ODT 4 MG TAB SL PRN (02:06)
[2017-11-17 03:06] VITALS: BMI 23.9
[2017-11-17] MEDS ORDERED: Digoxin 0.125 MG TAB PO SCH (08:15)
--- NOTE | 2017-11-17 08:32 | HP ---
ADMITTING PHYSICIAN: Kevin Carey M.D. HISTORY OF PRESENT ILLNESS: The patient is a 77-year-old male reported to the emergency room for fee ling tired and weak. He has had multiple medical issues other the past 3 months result from due to p revious surgery for a colonic mass with a diverting colostomy with reversal and then a diverting colo stomy. He has had multiple episodes of GI bleeding. He most recently has been hospitalized here [place] ro[place] 1 month ago for similar issues. He is now admitted again for a low hemoglobin. His reports that she stopped all of his pantoprazole, magnesium oxide as well as iron replacements approx imately 3 days ago. She felt like they were not doing him any good. He reported having some diarrhe a, did not note any blood per bowel movement, did not note any melena at this time. He did have 1 ep isode of vomiting with no blood noted. He is complaining of being weak, lightheaded, dizzy, feeling tired. Otherwise, no other medical complaints are noted. ALLERGIES: He has no known allergies. CURRENT MEDICATIONS: Diltiazem 100 mg daily, vitamin D 5000 units daily, digoxin 0.125 mg daily, pot assium chloride 10 mEq daily, furosemide 20 mg 1 daily. He is also on probiotic and CoQ10. PAST MEDICAL HISTORY: Significant for a medical history significant for atrial fibrillation. He had multiple hospitalizations recently for anemia, GI bleeding. He also has a history of type 2 diabete s mellitus. PAST SURGICAL HISTORY: Positive for abdominal aortic aneurysm, diverting colostomy with reversal, mu ltiple cardiac ablations. SOCIAL/PERSONAL HISTORY: He is . He drinks alcohol occasionally. He does not smoke. PHYSICAL EXAMINATION: VITAL SIGNS: Temperature 97.5, pulse 92, respirations 18, O2 saturation 98%, blood pressure 106/69. GENERAL: This is a pale appearing white male, elderly, in no acute distress. HEENT: Normocephalic, atraumatic. Sclerae and conjunctivae clear. Throat clear. NECK: Supple, full range of motion, no masses. LUNGS: Clear. HEART: Reveals an irregular regular rhythm without murmur, gallops or rubs. ABDOMEN: Soft. There is some mild tenderness noted in the right lower quadrant. No evidence of la ound or guarding. There is no evidence of any palpable masses. EXTREMITIES: No clubbing, edema or cyanosis noted at this time. LABORATORY: His admission hemoglobin was 5.6, hematocrit 17.6. He has had 2 units of blood while in the ER. Chemistry: Sodium 136, potassium 4.0, chloride 101, CO2 25, BUN 23, creatinine 1.37. Digo nik level 0.15. IMPRESSION: Anemia, unsure whether this represents some type of blood loss phenomenon versus nonprod uction. His has stopped some of his oral medicines. PLAN: We will recheck a CBC again this morning to see what his post-transfusion hematocrit is. We m ay have to order further blood. We will get a GI consult to make any further recommendations regardi lidia evaluation of his GI system.
[2017-11-17] MEDS ORDERED: Pantoprazole 40 MG VIAL IVP SCH (09:00)
[2017-11-17] MEDS ORDERED: Prevnar 13-Val Conj/PF 0.5 ML SYRINGE IM ONE (09:00)
[2017-11-17] MEDS ORDERED: DILTIAZEM HCL 180 MG PO SCH (09:00)
[2017-11-17] MEDS ORDERED: Furosemide 20 MG TAB PO SCH (09:00)
[2017-11-17] MEDS ORDERED: Non-Formulary Item 1 EACH (Cholecalciferol (Vitamin D3) [Vitamin D] 5,000 UNIT) PO SCH (09:00)
[2017-11-17 09:45] LABS: #Lymphocytes 0.4 thou/uL (1.20-3.40); #Monocytes 0.4 thou/uL (0.11-0.59); #Neutrophils 3.2 thou/uL (1.40-6.50); %Basophils 0.3 % (0.0-1.0); %Eosinophils 0.8 % (0.0-10.0); %Lymphocytes 10.5 % (21.0-51.0); %Monocytes 8.9 % (0.0-10.0); %Neutrophils 79.5 % (42.0-75.0); Hemoglobin 7.7 g/dL (14.0-18.0); Mean Corpuscular HGB CONC 31.9 g/dL (32.0-36.0); Mean Platelet Volume 8.5 fL (7.4-10.4); Platelet Count 109 thou/uL (130-400); RBC Distribution Width 21.3 % (11.5-14.5); Red Blood Cell (RBC) Count 2.34 mill/uL (4.70-6.10)
[2017-11-17 10:04] LABS: Anion Gap 13 mmol/L (10-20); BUN (Urea Nitrogen) 20 mg/dL (8.4-25.7); Calc. Creatinine Clearance 40 mL/min (70-130); Calcium 11.6 mg/dL (7.8-10.44); Carbon Dioxide 27 mmol/L (23-31); Chloride 102 mmol/L (98-107); Estimated GFR-MDRD 43; Glucose 87 mg/dL (83-110); Potassium 4.1 mmol/L (3.5-5.1); Sodium 138 mmol/L (136-145)
[2017-11-17 10:13] LABS: Band 8 % (5-11); Lymphocytes 10 % (21-51); MDiff Complete? YES; Monocytes 2 % (0-10); Neutrophil 80 % (42-75); PLT Morphology Comment Appears Decreased; Polychromasia SLIGHT = 2-3 cells (100X) (0-2/hpf); Rouleaux Formation MARKED = >16 cells (100X) (None Seen)
[2017-11-17] MEDS ORDERED: Furosemide 40 MG/4 ML VIAL SLOW IVP SCH (13:00)
[2017-11-17] MEDS: Furosemide 20 MG TAB PO SCH (13:16)
[2017-11-17] MEDS: Pantoprazole 40 MG VIAL IVP SCH ×2 (13:16→20:32)
[2017-11-17] MEDS: Potassium Chloride 10 MEQ TAB PO SCH (13:16)
--- NOTE | 2017-11-17 13:39 | CON ---
DATE OF CONSULTATION: 11/17/2017 REASON FOR CONSULTATION: Severe anemia. HISTORY: Mr. Casillas is a 77-year-old male with recurrent severe anemia who was last hospitalized a month ago with GI bleeding. He has had recurrent anemia requiring transfusion over the last 2 mon ths. In September, he underwent an upper endoscopy that was essentially normal. The patient was transfuse d and discharged. He was readmitted to the hospital on 10/14/2017 when his hemoglobin dropped down t o 6 g/dL. At that time, he underwent a colonoscopy by Dr. 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 He also had multi ple ulcerations at the anastomosis to the left colon without any stigmata of bleeding. The patient w as discharged to home at that time. Since discharge, he has not noted any overt bleeding such as paz rusty or hematochezia. His stool has been dark from iron supplement. His reports the patient has had frequent loose stool and diarrhea since last admission. He denies any localizing pain or discom fort. There is no nausea or vomiting. The patient has a history of atrial fibrillation, but has bee n off aspirin and anticoagulant. PAST MEDICAL HISTORY: 1. Coronary artery disease. 2. History of congestive heart failure. 3. Atrial fibrillation. 4. Hypertension. 5. Chronic obstructive pulmonary disease. 6. Adult onset diabetes. 7. Abdominal aortic aneurysm surgery. 8. Status post sigmoidectomy with postoperative complications requiring diverting ileostomy with sub sequent reversal. 9. Status post cardiac ablations. ALLERGIES: None. MEDICATIONS: At home include diltiazem 180 mg every day, vitamin D 5000 units every day, digoxin 0.1 25 mg every day, KCl 10 mEq daily, lactobacillus every day, ubiquinol 100 mg at bedtime, and Lasix un known dose every day. SOCIAL HISTORY: The patient is , lives with his , has no active tobacco or alcohol usage. FAMILY HISTORY: Negative for any known GI problem, liver disease, GI malignancy. REVIEW OF SYSTEMS: Ten point review of systems did not show any other pertinent positive or negative . PHYSICAL EXAMINATION: VITAL SIGNS: Temperature is 98.9, blood pressure 123/78, pulse of 90. GENERAL: He is alert, in no distress. HEENT: Shows anicteric sclerae, but pale. Oropharynx clear. NECK: Supple. CARDIOVASCULAR: Shows normal S1, S2, regular rate and rhythm. CHEST: Shows normal breath sounds. ABDOMEN: Soft. There is no distention, no tympany. There is no tenderness. There is no hepatosple nomegaly. He has active bowel sounds. EXTREMITIES: Does not show any edema. LABORATORY DATA: Admitting hemoglobin was 5.6, currently it is 7.7 after 2 units. WBC is 4.0, plate let count of 109. Sodium 138, potassium 4.1, chloride 102, CO2 of 27, creatinine 1.56, BUN of 20. H is TIBC 197. Serum iron 37, ferritin of 77, bilirubin 0.4, AST of 19, ALT less than 7, alkaline phos phatase 108. ASSESSMENT: 1. Acute on chronic anemia, this time with no overt gastrointestinal bleeding. Colonoscopy from 3 w eeks ago did show multiple large right colon arteriovenous malformations that were not amenable to en doscopic therapy. However, these arteriovenous malformations did not appear to be bleeding. He also had multiple ulcers at the anastomosis that were felt to be the source of bleeding. However, this t hitesh there are no signs of overt bleeding. It is also likely that he has small bowel arteriovenous ma lformations given findings of colonic AVMs. I suspect that he does have a component of occult gastro intestinal bleed and perhaps a concurrent bone marrow malproduction given his age and other diseases. 2. Diarrhea, will need to exclude Clostridium difficile. 3. Coronary artery disease/congestive heart failure/diabetes/hypertension/chronic obstructive pulmon sofia disease. RECOMMENDATIONS: 1. At this point, a repeat colonoscopy is not recommended. His AVMs in the right colon were not sakina nable to endoscopic therapy without high risk of complication and perforation and anastomotic ulcers did not appear to be bleeding with the last exam. His EGD from 2 months ago was normal. 2. Transfusion support. 3. The patient can be discharged with a Hematology referral for IV iron in the hope of maintaining h is blood count. 4. We will follow.
[2017-11-17] MEDS ORDERED: UBIQUINOL 100 MG PO SCH (21:00)
[2017-11-17] MEDS ORDERED: Non-Formulary Item 1 EACH (Lactobacillus Acidophilus [Probiotic] 1 CAPSULE) PO SCH (21:00)
[2017-11-17] MEDS ORDERED: Ubidecarenone 50 MG CAP PO SCH (21:00)
[2017-11-17] MEDS ORDERED: Lactinex Tablet PO SCH (21:00)
[2017-11-18 06:02] LABS: Band 1 % (5-11); Eosinophils 2 % (0-10); Hemoglobin 8.6 g/dL (14.0-18.0); Lymphocytes 16 % (21-51); MDiff Complete? YES; Mean Corpuscular HGB CONC 32.5 g/dL (32.0-36.0); Mean Corpuscular Hemoglobin 33.2 pg (27.0-31.0); Monocytes 8 % (0-10); Neutrophil 73 % (42-75); PLT Morphology Comment Appears Decreased; Platelet Count 92 thou/uL (130-400); RBC Distribution Width 20.8 % (11.5-14.5); Reflex for Review?? NO; Tear Drops MODERATE= 6-15 cells (100X) (0-1/hpf)
[2017-11-18 09:48] LABS: BUN (Urea Nitrogen) 18 mg/dL (8.4-25.7); Calc. Creatinine Clearance 55 mL/min (70-130); Carbon Dioxide 23 mmol/L (23-31)
[2017-11-18 09:49] LABS: Calcium 7.6 mg/dL (7.8-10.44); Estimated GFR-MDRD 63; Glucose 80 mg/dL (83-110)
[2017-11-18] MEDS: Pantoprazole 40 MG VIAL IVP SCH (10:15)
[2017-11-18] MEDS: Potassium Chloride 10 MEQ TAB PO SCH (10:15)
[2017-11-18] MEDS: Furosemide 20 MG TAB PO SCH (10:15)
[2017-11-18 12:02] VITALS: BP 118/75; TEMP 98.6
--- NOTE | 2017-11-18 14:06 | PRG ---
DATE OF SERVICE: 11/18/2017 Mr. Casillas is doing well. He has had less diarrhea today. No blood per bowel movement has been noted. PHYSICAL EXAMINATION: VITAL SIGNS: BP 118/78, temperature 98.6. LUNGS: Clear. HEART: Reveals an irregular regular rhythm without murmurs, gallops or rubs. LABORATORY: His hemoglobin is 8.6, hematocrit 26.6, BUN 18, creatinine 1.13. Stool studies; E. coli test is negative. Campylobacter test and antigen was positive. All other antigen tests were negati ve. IMPRESSION: 1. Acute anemia, doubt this represents a GI bleed, more of a probable inability to maintain his hemo globin. 2. Diarrhea, possibly related to Campylobacter. PLAN: The patient is now stable to be discharged. I have advised he can be discharged home. Follow up with me in 1 week.
--- NOTE | 2017-11-19 00:18 | DIS ---
DATE OF ADMISSION: 11/17/2017 DATE OF DISCHARGE: 11/18/2017 ADMITTING PHYSICIAN: Dr. Kevin Carey. HOSPITAL SUMMARY: Mr. Casillas 77-year-old male who presented to the emergency room feeling weak. He was found to have a hemoglobin of approximately 5.9. There is no appreciable blood per bowel mov ement or GI bleeding noted. He was subsequently admitted to the hospital where he had been given 2 u nits of blood. His hemoglobin did increase to 7.6. He received 2 more units of blood after that. G I consult was obtained due to his diarrhea as well as his low hemoglobin. It was felt like he did no t meet any further criteria for scoping as he had already had scopes done on his last two admissions. He did have positive Campylobacter antigen. By 11/18/2017, he felt like his diarrhea was much bett er. DISCHARGE MEDICATIONS: He was able to be discharged home on diltiazem 180 mg daily, vitamin D 5000 u nits daily, digoxin 0.125 mg daily, potassium chloride 10 mEq daily, probiotic 1 daily, CoQ10 one karrie ly, furosemide 20 mg 1 tablet daily as well as supplemental iron 1 tablet t.i.d. PLAN: He will see me back in followup in 1 week.
== END 2017-11-18 14:38 | disposition home or self-care (01) | DRG 812 ==
LOC: ERS 20:55 → 2SE 11-17 00:30
PROVIDERS: ADMIT Family Medicine; ATTEND Family Medicine
PROC: 30233N1 Transfusion of Nonautologous Red Blood Cells into Peripheral Vein, Percutaneous Approach (ICD-10-PCS; principal; 2017-11-17)
DX: D64.9 Anemia, unspecified (principal); I25.10 Atherosclerotic heart disease of native coronary artery without angina pectoris; I11.0 Hypertensive heart disease with heart failure; I50.9 Heart failure, unspecified; I48.91 Unspecified atrial fibrillation; J44.9 Chronic obstructive pulmonary disease, unspecified; E11.9 Type 2 diabetes mellitus without complications
CPT/HCPCS: 36415; 36416; 36430; 80048; 80053; 80162; 82728; 83540; 83550; 85025; 85060; 85610; 85730; 86850; 86900; 86901; 87045; 87046; 87081; 87324; 87449; 87899; 93005; 94760; 96374; A4216; C9113; P9016

== ENCOUNTER 2017-12-08 08:26 | Day surgery (SDC) | payer MEDICARE ==
[2017-12-08] MEDS ORDERED: diphenhydrAMINE 25 MG CAP PO SCH (09:15)
[2017-12-08] MEDS ORDERED: Acetaminophen 500 MG TAB PO SCH (09:15)
[2017-12-08] MEDS ORDERED: Sodium Chloride 0.9% 10 ML ONE (09:21)
[2017-12-08 13:21] VITALS: TEMP 98.1
[2017-12-08 15:15] VITALS: BP 117/56
[2017-12-08 15:19] LABS: White Blood Cell (WBC) Count 2.4 thou/uL (4.8-10.8)
[2017-12-08 15:21] LABS: Hemoglobin 8.2 g/dL (14.0-18.0); Mean Corpuscular HGB CONC 31.1 g/dL (32.0-36.0); Mean Platelet Volume 9.4 fL (7.4-10.4); Platelet Count 69 thou/uL (130-400); RBC Distribution Width 19.7 % (11.5-14.5); Red Blood Cell (RBC) Count 2.57 mill/uL (4.70-6.10)
[2017-12-08 15:38] LABS: Anisocytosis SLIGHT = 6-15 cells (100X) (0-5/hpf); Band 10 % (5-11); Lymphocytes 10 % (21-51); Monocytes 2 % (0-10); Neutrophil 78 % (42-75); Tear Drops SLIGHT = 2-5 cells (100X) (0-1/hpf)
[2017-12-08 15:39] LABS: MDiff Complete? YES; PLT Morphology Comment Appears Decreased
== END 2017-12-08 15:15 | disposition home or self-care (01) ==
LOC: ONC/OP 08:26
PROVIDERS: ATTEND Internal Medicine Hematology & Oncology
DX: D64.9 Anemia, unspecified (principal); D69.6 Thrombocytopenia, unspecified
CPT/HCPCS: 36430; 85014; 85018; 86850; 86900; 86901; A4216; P9016

== ENCOUNTER 2017-12-17 13:20 | Day surgery (SDC) | payer MEDICARE ==
[2017-12-17] MEDS ORDERED: Sodium Chloride 0.9% 40 ML ONE (13:32)
[2017-12-17] MEDS ORDERED: Acetaminophen 500 MG TAB PO SCH (13:45)
[2017-12-17] MEDS ORDERED: diphenhydrAMINE 25 MG CAP PO SCH (13:45)
[2017-12-17 18:41] LABS: Hemoglobin 8.2 g/dL (14.0-18.0); Platelet Count 55 thou/uL (130-400)
[2017-12-17 20:41] VITALS: BP 130/56; TEMP 97.9
== END 2017-12-17 20:35 | disposition home or self-care (01) ==
LOC: ONC/OP 13:20
PROVIDERS: ATTEND Internal Medicine Hematology & Oncology
PROC: 30233N1 Transfusion of Nonautologous Red Blood Cells into Peripheral Vein, Percutaneous Approach (ICD-10-PCS; principal; 2017-12-17)
DX: D64.9 Anemia, unspecified (principal); D69.6 Thrombocytopenia, unspecified; C90.00 Multiple myeloma not having achieved remission; D50.0 Iron deficiency anemia secondary to blood loss (chronic)
CPT/HCPCS: 36415; 36430; 82232; 85014; 85018; 85049; 86850; 86900; 86901; A4216; P9016

== ENCOUNTER 2018-01-05 08:12 | Day surgery (SDC) | payer MEDICARE ==
[2018-01-05] MEDS ORDERED: Acetaminophen 500 MG TAB PO SCH (08:30)
[2018-01-05] MEDS ORDERED: diphenhydrAMINE 25 MG CAP PO SCH (08:30)
[2018-01-05 14:10] LABS: Hemoglobin 8.5 g/dL (14.0-18.0)
[2018-01-05 15:12] VITALS: TEMP 98.3
[2018-01-05 16:46] VITALS: BP 100/51
[2018-01-05] MEDS ORDERED: Prevnar 13-Val Conj/PF 0.5 ML SYRINGE IM ONE (17:30)
== END 2018-01-05 16:52 | disposition home or self-care (01) ==
LOC: ONC/OP 08:12 → ONC 08:37 → ONC/OP 16:52
PROVIDERS: ATTEND Internal Medicine Hematology & Oncology
PROC: 30233N1 Transfusion of Nonautologous Red Blood Cells into Peripheral Vein, Percutaneous Approach (ICD-10-PCS; principal; 2018-01-05)
DX: D64.9 Anemia, unspecified (principal); Z79.899 Other long term (current) drug therapy
CPT/HCPCS: 36415; 36430; 85014; 85018; 86850; 86900; 86901; P9016

== ENCOUNTER 2018-03-13 09:48 | Observation (INO) | payer MEDICARE ==
[2018-03-13 10:49] LABS: Hemoglobin 8.8 g/dL (14.0-18.0); Mean Corpuscular Hemoglobin 35.1 pg (27.0-31.0); Mean Platelet Volume 9.2 fL (7.4-10.4); Platelet Count 83 thou/uL (130-400); RBC Distribution Width 18.7 % (11.5-14.5); Red Blood Cell (RBC) Count 2.51 mill/uL (4.70-6.10); White Blood Cell (WBC) Count 4.4 thou/uL (4.8-10.8)
[2018-03-13 11:06] LABS: ALT (SGPT) 7 U/L (8-55); AST (SGOT) 14 U/L (5-34); Albumin 3.1 g/dL (3.4-4.8); Alkaline Phosphatase 122 U/L (40-150); Anion Gap 12 mmol/L (10-20); BUN (Urea Nitrogen) 12 mg/dL (8.4-25.7); CK (CPK) 10 U/L (30-200); Calc. Creatinine Clearance 0 mL/min (70-130); Calcium 8.6 mg/dL (7.8-10.44); Carbon Dioxide 29 mmol/L (23-31); Chloride 100 mmol/L (98-107); Estimated GFR-MDRD 74; Glucose 141 mg/dL (83-110); Potassium 3.2 mmol/L (3.5-5.1); Protein, Total 5.1 g/dL (5.8-8.1); Sodium 138 mmol/L (136-145)
[2018-03-13 11:11] LABS: #Eosinphils 0.1 thou/uL (0.0-0.7); #Lymphocytes 0.2 thou/uL (1.20-3.40); #Monocytes 0.4 thou/uL (0.11-0.59); #Neutrophils 3.6 thou/uL (1.40-6.50); %Basophils 0.7 % (0.0-1.0); %Eosinophils 1.6 % (0.0-10.0); %Lymphocytes 5.4 % (21.0-51.0); %Monocytes 9.9 % (0.0-10.0); %Neutrophils 82.4 % (42.0-75.0); Anisocytosis MODERATE=16-30 cells (100X) (0-5/hpf); CKMB 0.5 ng/mL (0-6.6); Elliptocytes SLIGHT = 2-5 cells (100X) (0-1/hpf); MDiff Complete? YES; Macrocytosis MODERATE=16-30 cells (100X) (0-5/hpf); Microcytosis SLIGHT = 6-15 cells (100X) (0-5/hpf); PLT Morphology Comment Appears Decreased; Troponin I 0.045 ng/mL (< 0.028)
[2018-03-13] MEDS ORDERED: Potassium Chloride 20 MEQ TAB ONE (11:17)
--- NOTE | 2018-03-13 11:51 | RAD ---
PORTABLE CHEST: COMPARISON: 10/26/2017 study. HISTORY: Cough. Weakness since last chemo treatment. FINDINGS: Heart size is within normal limits with atherosclerotic change of the aorta. Chronic lung changes ar e seen. There is blunting to the left costophrenic angle which is new as compared to the prior exami nation. There is also some minimal blunting to the right costophrenic angle. Arthritic changes of b oth shoulders are noted. IMPRESSION: 1. Chronic lung changes. 2. Suggestion of possible small bilateral pleural effusions. POS: DEBORAH
[2018-03-13] MEDS ORDERED: Ondansetron PF 4 MG/2 ML Vial IVP PRN (12:33)
[2018-03-13] MEDS ORDERED: Acetaminophen 325 MG TAB PO PRN (12:33)
[2018-03-13] MEDS ORDERED: HYDROcodone/Acetaminophen 7.5/325 mg Tablet PO PRN (12:33)
--- NOTE | 2018-03-13 13:45 | HP ---
HISTORY OF PRESENT ILLNESS: This is a 77-year-old white male with history of multiple myeloma, chron ic atrial fibrillation, and recurrent GI bleed who presents with a 3-4 day history of increasing weak ness, decreased appetite, and dizziness. He is presently on his 11th week of chemotherapy for multip le myeloma, followed by Dr. Hernandez. The states that he is becoming progressively weak. She wa nts to take a break from the therapy. Over the past several days, he has had minimal intake and is u nable to stand at this time. The patient has had multiple admissions for various reasons and lately more for GI bleeds which had been under relative control recently. PAST MEDICAL HISTORY: Multiple eye surgeries, hypertension, hyperlipidemia, diabetes, chronic atrial fibrillation followed by Dr. Saba, history of diverticulitis. PAST SURGICAL HISTORY: Include abdominal aneurysm repair in December 2011, February 2010, colonos copy and EGD in 2014, cardiac ablation in December 2014, laparoscopic sigmoid colectomy in February 2017 , ileostomy reversal in June 2017. FAMILY HISTORY: Father with heart disease, hypertension, diabetes, and stroke. Mother h ad hyperlipidemia, stroke, and colon cancer. Daughter recently. SOCIAL HISTORY: He is a former smoker, he quit in 2007. He drinks alcohol occasionally. He is reti red. He is . He is followed by Dr. Carey. MEDICATIONS: Include Cartia which is presently on hold; aspirin 81 mg daily; magnesium daily; vitami n D daily; digoxin 0.125 Wednesday, Wednesday, and Wednesday; torsemide p.r.n. ALLERGIES: To WARFARIN which causes GI bleed and XARELTO, which also causes GI bleed. REVIEW OF SYSTEMS: As above. PHYSICAL EXAMINATION: VITAL SIGNS: Blood pressure 138/70, pulse 95, respirations 16, afebrile. GENERAL: The patient is lying in bed, in no acute distress. HEENT: Mucous membranes are somewhat dry. NECK: Supple. HEART: Irregularly regular, rate controlled. LUNGS: Clear. ABDOMEN: Soft, nontender. EXTREMITIES: With no edema at this time. LABORATORY DATA: White count 4.4, H and H 8.8 and 26.7. Sodium 138, potassium 3.2, glucose 141. Tr oponin . Chest x-ray, chronic lung changes, possible small bilateral pleural effusions. ASSESSMENT: 1. Weakness. 2. Dehydration. 3. Multiple myeloma, on the 11th week of chemo. 4. Chronic anemia. 5. History of gastrointestinal bleed. 6. Chronic atrial fibrillation, diastolic congestive heart failure, status post Watchman procedure a nd status post ablation. 7. Hypertension. 8. Hyperlipidemia. 9. Diabetes. PLAN: 1. Hydrate. 2. Dietary consult. 3. Consult Dr. Saba. 4. Slow IV hydration and potassium supplementation. 5. Dietary consult and Boost t.i.d.
[2018-03-13] MEDS: Sodium Chloride 0.9% 1,000 ML IV SCH (14:25)
[2018-03-13 14:30] VITALS: BMI 21.4
[2018-03-13 14:42] LABS: Troponin I 0.035 ng/mL (< 0.028)
[2018-03-13] MEDS: Potassium Chloride 20 MEQ TAB PO SCH (15:03)
[2018-03-13 18:23] LABS: Troponin I 0.033 ng/mL (< 0.028)
[2018-03-13] MEDS: Famotidine 20 MG TAB PO SCH (20:45)
[2018-03-14 05:55] LABS: #Eosinphils 0.1 thou/uL (0.0-0.7); #Lymphocytes 0.3 thou/uL (1.20-3.40); #Monocytes 0.5 thou/uL (0.11-0.59); %Basophils 0.6 % (0.0-1.0); %Monocytes 10.7 % (0.0-10.0); %Neutrophils 80.7 % (42.0-75.0); Hemoglobin 8.5 g/dL (14.0-18.0); Mean Corpuscular Hemoglobin 35.2 pg (27.0-31.0); Mean Platelet Volume 8.7 fL (7.4-10.4); Platelet Count 98 thou/uL (130-400); RBC Distribution Width 19.1 % (11.5-14.5); Red Blood Cell (RBC) Count 2.42 mill/uL (4.70-6.10)
[2018-03-14 06:12] LABS: Anion Gap 10 mmol/L (10-20); BUN (Urea Nitrogen) 13 mg/dL (8.4-25.7); Calc. Creatinine Clearance 73 mL/min (70-130); Calcium 8.5 mg/dL (7.8-10.44); Carbon Dioxide 28 mmol/L (23-31); Chloride 104 mmol/L (98-107); Estimated GFR-MDRD Greater than 90; Glucose 85 mg/dL (83-110); Potassium 3.9 mmol/L (3.5-5.1); Sodium 138 mmol/L (136-145)
[2018-03-14] MEDS: Famotidine 20 MG TAB PO SCH (08:10)
[2018-03-14] MEDS: Potassium Chloride 20 MEQ TAB PO SCH (08:10)
[2018-03-14] MEDS: Sodium Chloride 0.9% 1,000 ML IV SCH (08:12)
--- NOTE | 2018-03-14 10:33 | PRG ---
DATE OF SERVICE: 03/14/2018 SUBJECTIVE: Mr. Casillas is resting in bed. He has no complaints. PHYSICAL EXAMINATION: VITAL SIGNS: Temperature is 99.1 and BP 129/63. LUNGS: Clear. HEART: Reveals no murmur. LABORATORY DATA: His hemoglobin is 8.5, hematocrit 45.8, and chemistry within normal limits. IMPRESSION: Dehydration. PLAN: We will observe the patient again. He has expressed desire to go home, but if he is looking b monserrat at noontime, I will be send him home at that point.
[2018-03-14 11:41] VITALS: BP 131/60; TEMP 98.1
== END 2018-03-14 14:31 | disposition home or self-care (01) ==
LOC: ERS 09:48 → 2NO 12:15
PROVIDERS: ADMIT Family Medicine; ATTEND Family Medicine
DX: R53.1 Weakness (principal); E86.0 Dehydration; I48.2 Chronic atrial fibrillation; C90.00 Multiple myeloma not having achieved remission; E78.5 Hyperlipidemia, unspecified; E11.9 Type 2 diabetes mellitus without complications; I11.0 Hypertensive heart disease with heart failure; I50.30 Unspecified diastolic (congestive) heart failure; Z87.891 Personal history of nicotine dependence; Z79.82 Long term (current) use of aspirin; Z79.899 Other long term (current) drug therapy; Z88.8 Allergy status to other drugs, medicaments and biological substances; Z90.49 Acquired absence of other specified parts of digestive tract
CPT/HCPCS: 71045; 80048; 80053; 82550; 82553; 82962 ×2; 83605; 84484 ×2; 85025 ×2; 87040; 93005; 94760; 96360; 96361 ×3; 99285; G0378 ×2; 36415; 36416